=== PATIENT | female | born 1935 | race Caucasian/White ===

== ENCOUNTER 2022-06-29 20:41 | Emergency (ER) | payer MEDICARE, SELFPAY ==
[2022-06-29 20:45] VITALS: BP 131/66; PULSE 88; RESP 14; TEMP 36.5; O2SAT 98
--- NOTE | 2022-06-29 22:20 | ED_ITS ---
HPI - Extremity Injury (Lower) General Chief Complaint: Extremity Injury, Lower Stated Complaint: bleeding blister on toe. now controlled Time Seen by Provider: 06/29/22 21:43 History of Present Illness HPI Narrative: 86-year-old female history of diabetes presents to the emergency room via EMS for evaluation of a blood blister to her right fourth toe. Patient states that she noticed a blood blister several days ago and decided to open it up herself. halfway staff was concerned due to the bleeding and that she has diabetes. Patient has no complaints at this time. Related Data Allergies Allergy/AdvReac Type Severity Reaction Status Date / Time No Known Drug Allergies Allergy Unknown Other Verified 06/29/22 21:38 Review of Systems Review of Systems: CONSTITUTIONAL: Denies fever, chills, or sweats. EYES: Denies visual changes, redness, or discharge. ENT: Denies rhinorrhea, congestion, sore throat, or otalgia. CARDIOVASCULAR: Denies chest pain, palpitations, or edema. RESPIRATORY: Denies cough or dyspnea. GASTROINTESTINAL: Denies abdominal pain, nausea, vomiting, or diarrhea. GENITOURINARY: Denies dysuria or hematuria. SKIN: Denies rash or itching. MUSCULOSKELETAL: Denies back pain, joint pain, or myalgia. NEUROLOGIC: Denies headache, numbness, dizziness, or weakness. PSYCHIATRIC: Denies anxiety or depression. Exam Narrative: GENERAL: Well-appearing, well-nourished, no physical limitations, and in no acute distress. HEAD: Normocephalic, atraumatic. EYES: Conjunctivae normal, PERRLA and EOMI. CHEST: Clear to auscultation. No respiratory distress. No wheezes rales or rhonchi. HEART: Regular rate and rhythm. No murmur heard. Normal peripheral pulses. EXTREMITIES: Normal range of motion. No edema. No clubbing or cyanosis SKIN: Right fourth toe: Draining sanguinous nonthermal bulla medial surface NEURO: No focal deficits. Alert and oriented x3. MAEW. CN's II-XI intact bilaterally, normal gait PSYCH: Cooperative. Normal mood and affect. Course Vital Signs Vital signs: Vital Signs Temperature 36.5 C 06/29/22 20:45 Pulse Rate 88 06/29/22 20:45 Respiratory Rate 14 06/29/22 20:45 Blood Pressure 131/66 06/29/22 20:45 Pulse Oximetry 98 06/29/22 20:45 Oxygen Delivery Room Air 06/29/22 20:45 Temperature 36.5 C 06/29/22 20:45 Pulse Rate 88 06/29/22 20:45 Respiratory Rate 14 06/29/22 20:45 Blood Pressure 131/66 06/29/22 20:45 Pulse Oximetry 98 06/29/22 20:45 Oxygen Delivery Room Air 06/29/22 20:45 Discharge Plan Discharge Clinical Impression: Blister (nonthermal), right lesser toe(s), initial encounter Patient Disposition: Home, Self-Care Condition: Stable Instructions: Antibiotic Form Additional Instructions: Change dressing twice daily. May apply Neosporin to the wound. Take antibi otics as prescribed to prevent diabetic foot ulcer. Prescriptions: New cephalexin 500 mg capsule 500 mg PO Q8H 7 Days Qty: 21 0RF Follow-up/Referrals: Manas Dupree MD [Primary Care Provider] - Time of Disposition: 22:19
[2022-06-29 22:41] VITALS: PULSE 87; RESP 16; O2SAT 92
== END 2022-06-29 22:42 ==
PROVIDERS: Emergency Provider Nurse Practitioner Family; PCP Family Medicine Adolescent Medicine
DX: S90.424A Blister (nonthermal), right lesser toe(s), initial encounter (principal); E11.9 Type 2 diabetes mellitus without complications; X58.XXXA Exposure to other specified factors, initial encounter
CPT/HCPCS: 99283

== ENCOUNTER 2022-09-22 16:06 | Emergency (ER) | payer MEDICARE, SELFPAY ==
[2022-09-22 16:17] VITALS: BP 151/74; PULSE 110; RESP 16; TEMP 36; O2SAT 95
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
== END 2022-09-22 17:09 | disposition home or self-care (01) ==
PROVIDERS: Emergency Provider Registered Nurse; PCP Family Medicine Adolescent Medicine
DX: L25.9 Unspecified contact dermatitis, unspecified cause (principal); Z85.41 Personal history of malignant neoplasm of cervix uteri; Z85.05 Personal history of malignant neoplasm of liver; Z86.73 Personal history of transient ischemic attack (TIA), and cerebral infarction without residual deficits
CPT/HCPCS: 99213; G0463

== ENCOUNTER 2024-08-03 11:25 | Inpatient (IN) | payer MEDICARE, SELFPAY ==
[2024-08-03] VITALS (8 sets, daily range): BP systolic 120–151; BP diastolic 56–76; PULSE 74–86; RESP 17–20; TEMP 36.6–36.7; O2SAT 97–100
--- NOTE | ~2024-08-03 | MR_ITS ---
MRI of the brain Clinical History: Strokelike symptoms Technique: Axial and sagittal T1-weighted images were acquired. These were followed by axial T2-weigh mary, diffusion weighted, gradient, and FLAIR images. Findings: There is focal gyriform restricted diffusion at the left insular cortex, compatible with fo tamy acute infarct. There is moderate to advanced chronic microvascular ischemic change in the periven tricular white matter otherwise. Ventricles and subarachnoid spaces are mildly dilated. Orbits are unremarkable. There are bilateral m astoid effusions. There is left maxillary sinus disease. Major intracranial flow voids are grossly in tact. Sagittal midline structures are intact. IMPRESSION: Focal acute infarct at the left insular cortex. Moderate to advanced chronic microvascular ischemic change otherwise. Left maxillary sinus disease and bilateral mastoid effusions. Reviewed, dictated and finalized at location . RAL OFFICE EQUIPMENT ENGINEER
--- NOTE | ~2024-08-03 | XR_ITS ---
EXAMINATION: XR chest 1V portable DATE: 08/03/2024 11:49 INDICATION: Weakness TECHNIQUE: frontal view of the chest was obtained. COMPARISON: Chest radiograph dated 06/08/2014 FINDINGS: Mild elevation the left hemidiaphragm with streaky opacities at the left lung base on this could repr esent atelectasis or pneumonia. No other airspace opacities, pulmonary edema, pleural effusion or pne umothorax. Cardiomegaly. Mild lower thoracic dextrocurvature with moderate spondylosis. IMPRESSION: 1. Mild opacities at the left lung base along the mildly elevated left hemidiaphragm and favor atelec tasis over pneumonia. Reviewed, dictated and finalized at location A. TION JUDGE IMPRESSION: 1. Mild opacities at the left lung base along the mildly elevated left hemidiap hragm and favor atelectasis over pneumonia.
--- NOTE | ~2024-08-03 | CT_ITS ---
EXAMINATION: CT brain wo con DATE: 08/03/2024 11:35 INDICATION: Right-sided weakness and facial droop TECHNIQUE: Computed tomography (CT) of the head was performed without intravenous contrast. Sagittal and coronal reconstructions were performed. The mA was adjusted according to patient size. Iterative reconstruction technique was employed. The dose-length product was 605.33 mGy-cm. COMPARISON: head CT and brain MR dated 02/04/2016 FINDINGS: No acute intracranial hemorrhage, acute infarction or abnormal extra axial fluid collection. There ar e small old infarcts at the bilateral cerebellar hemispheres. There is moderate scattered white matte r hypoattenuation consistent with chronic small vessel ischemic disease. Symmetric prominence of the sulci consistent with mild to moderate age-appropriate diffuse cerebral volume loss. Ventricles are n ormal and symmetric. No mass/mass effect. Changes of bilateral intraocular lens replacement. The orbi ts and mastoid air cells are normal. Near complete opacification of the left maxillary sinus is and s ome of the posterior left ethmoid air cells with thickened sclerotic mejia suggestive of chronic sinu sitis. There is additional mucosal thickening in the right maxillary sinus. Bubbly mucus in the right sphenoid sinus. IMPRESSION: 1. Small old bilateral cerebellar infarcts. No acute intracranial process. 2. Age-related changes including mild to moderate diffuse volume loss and moderate scattered white ma tter hypoattenuation consistent with chronic small vessel ischemic. 3. Likely chronic sinus disease. Reviewed, dictated and finalized at location A. NG HANGER SUPERVISOR IMPRESSION: 1. Small old bilateral cerebellar infarcts. No acute intracranial process. 2. Age-related changes including mild to moderate diffuse volume loss and moder ate scattered white matter hypoattenuation consistent with chronic small vessel ischemic. 3. Likely chronic sinus disease.
--- NOTE | ~2024-08-03 | CT_ITS ---
EXAMINATION: CTA BRAIN/CAROTID DATE: 08/03/2024 13:36 INDICATION: Strokelike symptoms with right-sided weakness and facial droop TECHNIQUE: Computed tomographic angiography (CTA) of the head and neck was performed with 100 mL Omni paque-350 intravenous contrast. Multiplanar reconstructions and maximum intensity projection 3D-recon structions of the carotid arteries and of the intracranial arteries were created by the technologist on a separate workstation. Automated exposure control and iterative reconstruction technique were emp loyed.The dose-length product was 1013.16 mGy-cm. COMPARISON: None. FINDINGS: Carotid arteries: Visualized aortic arch and great vessels arising from the arch are normal in caliber with no or disse ction or hemodynamic significant atherosclerotic plaque. Normal variant separate origin of the left v ertebral artery from the aortic arch. There is a small amount of atherosclerotic plaque with 0% steno sis of the right and left carotid bulbs relative to normal distal artery lumen diameter (NASCET crite axel). The the right internal carotid artery is tortuous. There are couple subcentimeter likely benign nodules in the left thyroid lobe. Cervical soft tissues are otherwise unremarkable. Small region of tree-in-bud opacity in the left upper lobe consistent with endobronchial severe disease 18 first and age-indeterminate pneumonia. Severe cervical spondylosis. Intracranial arteries There is no hemodynamically significant stenosis in the vertebral, basilar and internal carotid arter ies. Vertebral arteries are codominant. There are no aneurysms identified. Both A1 and P1 segments a re patent. The left P1 segment is diminutive with majority of flow to the left posterior cerebral art jose supplied from the left internal carotid artery and a larger caliber patent left posterior communi cating artery. There are also additional patent anterior communicating and right posterior communicat ing arteries. Cerebral arterial arborization appears symmetric. No abnormally enhancing brain lesions identified. IMPRESSION: 1. Small amount of atherosclerotic plaque with 0% stenosis of the right and left carotid bulbs relati ve to normal distal artery lumen diameter (NASCET criteria). 2. Unremarkable cerebral CT angiogram with no aneurysm, thrombosis or hemodynamically significant jack nosis. Reviewed, dictated and finalized at location A. LE STIFFENER IMPRESSION: 1. Small amount of atherosclerotic plaque with 0% stenosis of the right and lef t carotid bulbs relative to normal distal artery lumen diameter (NASCET criteri a). 2. Unremarkable cerebral CT angiogram with no aneurysm, thrombosis or hemodynam ically significant stenosis.
--- NOTE | 2024-08-03 11:26 | ECG_ITS ---
Test Date: 2024-08-03 11:47:55 Measurements Intervals [place] Rate: 82 P: 33 OH: 171 QRS: -65 QRSD: 108 T: 31 QT: 371 QTc: 433 Interpretive Statements SINUS RHYTHM WITH FREQUENT VENTRICULAR PREMATURE COMPLEXES INCOMPLETE RIGHT BUNDLE BRANCH BLOCK [90+ ms QRS DURATION, TERMINAL R IN V1/V2, 40+ ms S IN I/aVL/V4/V5/V6] Poor R wave progression INFERIOR MYOCARDIAL INFARCTION , OF INDETERMINATE AGE [40+ ms Q WAVE AND/OR ST/T ABNORMALITY IN II/aVF] No previous ECG available for comparison Electronically Signed On 08-03-2024 12:55:16 [employer] SPECIALIST by Hannah Walsh M.D.
--- NOTE | 2024-08-03 11:47 | ED_ITS ---
HPI - Neuro Symptoms/Deficit General Chief Complaint: Neuro Symptoms/Deficit Stated Complaint: code stroke Time Seen by Provider: 08/03/24 11:46 Source: EMS Mode of arrival: EMS History of Present Illness HPI Narrative: 88 YEARS OLD WHITE FEMALE CAME FROM [facility] BY AMBULANCE WITH STROKE-LIKE SYMPTOMS. PATIENT LAST NORMAL WAS AT 10:30 A.M. THIS MORNING, PATIENT DID EAT BREAKFAST WENT BACK TO HER ROOM AND FELT WEIRD PATIENT CALLED STAFF WHO NOTICED RIGHT SIDE WEAKNESS AND EXPRESSIVE APHASIA HISTORY OF TIA. ON ARRIVAL TO THE ED PATIENT'S SON AT THE BEDSIDE WHO IS TELLING ME THAT PATIENT'S SPEECH RIGHT NOW EXACTLY THE SAME 2 WEEKS AGO AND DOES NOT LOOK ANY DIFFERENCE THAN 2 WEEKS AGO. CURRENTLY PATIENT IS AWAKE, ALERT ORIENTED X4 DENYING ANY SYMPTOMS. PATIENT CURRENTLY ON ASPIRIN Related Data Home Medications ?Medication ?Instructions ?Recorded ?Confirmed ?Last Taken ?Type aspirin 325 mg tablet 325 mg PO DAILY 11/23/23 11/23/23 Unknown History imatinib 400 mg tablet 400 mg PO DAILY 11/23/23 11/23/23 Unknown History calcium acetate 668 mg (169 mg 668 mg PO ONCE 04/26/24 Unknown History calcium) tablet cholecalciferol (vitamin D3) 10 10 mcg PO DAILY 04/26/24 Unknown History mcg (400 unit) capsule (Vitamin D3) vitamin B12 500 mcg-folic acid 400 1 tablet PO DAILY 04/26/24 Unknown History mcg tablet Allergies Allergy/AdvReac Type Severity Reaction Status Date / Time morphine AdvReac Nausea and Verified 04/26/24 08:59 Vomiting Review of Systems 2 Review of Systems: All systems reviewed & are unremarkable except as noted in HPI and below PMFSH Past Medical History Medical History Cancer, metastatic to liver History of cervical cancer History of CVA (cerebrovascular accident) (2015) left hemiparesis Surgical History Surgical History History of hysterectomy with bilateral oophorectomy (1995) History of Whipple procedure (11/2014) Hx of hernia repair (2017) Family History Family History Father Acute myocardial infarction Mother Rheumatic fever Social History Social History (Reviewed 10/18/24 @ 12:02 by KORI Sparks Smoking status: Never smoker Alcohol intake: never Substance use: never Exam 2 Narrative: General appearance: Well-developed, well-nourished Skin: Normal color Head: Normocephalic, nontraumatic Eyes: Clear conjunctiva ENT: Oropharynx normal, ears normal, nose normal Neck: Supple, nontender Chest and respiratory: Airway patent, no respiratory distress, no accessory muscle use Heart: Regular rate/rhythm Abdomen: Soft, nontender, no organomegaly, quiet bowel sounds Vascular: Normal peripheral pulses, normal capillary refill. Musculoskeletal: Right shoulder deformity and limited range of motion no tenderness, chronic Difficult left Ng left lower extremity because of chronic pain. Neurologic: Alert and oriented ?3, [employer] is normal as tested, no gross motor deficit Course Consultations Consultation #1: DR SUTHERLAND Date: 08/03/24 Vital Signs Vital signs: Vital Signs Temperature 36.7 C 08/03/24 11:45 Pulse Rate 82 08/03/24 11:45 Respiratory Rate 20 08/03/24 11:45 Blood Pressure 139/56 L 08/03/24 11:45 Pulse Oximetry 97 08/03/24 11:45 Oxygen Delivery Room Air 08/03/24 11:45 Temperature 36.7 C 08/03/24 11:45 Pulse Rate 82 08/03/24 12:20 Respiratory Rate 17 08/03/24 12:13 Blood Pressure 120/65 08/03/24 12:13 Pulse Oximetry 97 08/03/24 12:13 Oxygen Delivery Room Air 08/03/24 11:45 MDM - Neuro Symptoms/Deficit MDM Narrative Medical decision making narrative: PATIENT PRESENTS WITH STROKE-LIKE SYMPTOMS VITAL SIGNS SHOWING BLOOD PRESSURE 139/56 OTHERWISE WITHIN NORMAL LIMIT PHYSICAL EXAMINATION SHOWING PATIENT IS AWAKE, ALERT ORIENTED X4, STROKE SCALE IS 3 DIFFERENTIAL DIAGNOSIS CVA, TIA, ELECTROLYTE IMBALANCE, URINARY TRACT INFECTION, HYPOGLYCEMIA. BLOOD WORKUP TODAY INCLUDES CBC, CMP, TROPONIN SHOWED HEMOGLOBIN OF 9.0, PLATELET 398, COAGS WITHIN NORMAL LIMIT, CREATININE 1.5 OTHERWISE WITHIN NORMAL LIMIT URINALYSIS SHOWED EVIDENCE OF INFECTION CHEST X-RAY SHOWED NO ACUTE ABNORMALITY CT HEAD WITHOUT CONTRAST SHOWED NO ACUTE CVA CTA HEAD AND NECK SHOWED NO ACUTE ABNORMALITIES ACCORDING TO PATIENT'S FAMILY WHO HAVE SEEN THE PATIENT YESTERDAY. PATIENT LOOKS EXACTLY THE SAME, IMPROVING, NORMAL SPEECH, NORMAL RESPONSE, CURRENTLY PATIENT IS ASYMPTOMATIC. TIA IS MY CONCERN. CONSULT NEUROLOGIST, ADMIT TO HOSPITALIST WITH TIA, URINARY TRACT INFECTION Differential Diagnosis Differential diagnosis: Likely other ( ABOVE) Medical Records Attestation: I reviewed the patient's medical records. Lab Data Attestation: I reviewed the patient's lab results. 08/03/24 12:12 08/03/24 12:12 Labs: Lab Results 08/03/24 08/03/24 08/03/24 Range/Units 12:12 12:20 13:13 WBC 8.5 (4.5-10.0) K/mm3 RBC 2.74 L (4.2-5.4) M/mm3 Hgb 9.0 L (12.0-15.0) g/dL Hct 28.2 L (37.0-47.0) % MCV 102.9 H (80-100) fl MCH 32.8 (26-34) pg MCHC 31.9 L (32-36) g/dl RDW 16.6 H (11.5-14.5) % Plt Count 398 H (150-375) k/mm3 MPV 9.1 (7.4-10.4) fl Immature Gran % (Auto) 0.1 (0-0.5) % Neut % (Auto) 74.9 H (45.5-73.1) % Lymph % (Auto) 15.9 L (18.3-44.2) % [place] % (Auto) 7.1 (2.6-8.5) % Eos % (Auto) 1.4 (0-4.4) % Baso % (Auto) 0.6 (0.2-1.2) % Lymph # (Auto) 1.35 (0.9-3.2) K/mm3 [place] # (Auto) 0.6 (0.1-0.6) K/mm3 Eos # (Auto) 0.1 (0-0.3) K/mm3 Baso # (Auto) 0.1 (0.0-0.1) K/mm3 Abs Immat Gran (auto) 0.01 (0.00-0.031) K/mm3 Absolute Neuts (auto) 6.4 (1.3-6.7) K/mm3 Absolute Nucleated RBC 0.000 (0.0-0.012) K/mm3 Nucleated RBC % 0.0 (0.0-0.2) % PT 13.7 (11.1-14.7) Seconds INR 1.0 APTT 24.3 (22.3-36.8) Seconds Sodium 136 L (137-145) mmol/L Potassium 4.8 (3.4-5.0) mmol/L Chloride 105 (98-107) mmol/L Carbon Dioxide 22 (22-30) mmol/L Anion Gap 9 (4-12) mmol/L BUN 29 H (7-17) mg/dL Creatinine 1.58 H (0.7-1.0) mg/dL Estim Creat Clear Calc 24 ml/min Estimated GFR 31 L (59 - ) Glucose 136 H (65-110) mg/dL POC Capillary Glucose 135 H (65-105) mg/dl Calcium 8.1 L (8.4-10.2) mg/dL Total Bilirubin 0.3 (0.2-1.3) mg/dL AST 22 (14-36) U/L ALT 11 (6-35) U/L Alkaline Phosphatase 79 (38-126) U/L Troponin I < 0.012 (0.000-0.034) ng/mL Total Protein 6.0 L (6.3-8.2) g/dL Albumin 3.2 L (3.5-5.1) g/dL Urine Color Yellow (Yellow) Urine Appearance Clear (Clear) Urine pH 5.0 (5.0-9.0) Ur Specific [place] 1.019 (1.001-1.035) Urine Protein Trace (Negative) mg/dL Urine Glucose (UA) Negative (Negative) mg/dL Urine Ketones Negative (Negative) mg/dL Ur Blood (Man) Negative (Negative) Urine Nitrate Negative (Negative) Urine Bilirubin Negative (Negative) Urine Urobilinogen 0.2 (<2.0) mg/dL Add Ur Microanalysis Reviewed Leukocyte Esterase Rfl 1+ H (Negative) FANNY/UL Urine RBC 0-2 (0-2) /hpf Urine WBC 11-20 H (0-3) /hpf Ur Squamous Epith Cells Few (Few) /hpf Urine Bacteria 1+ H /hpf Urine Casts >20 Imaging Data Radiologist's impression: Impressions Head CT 08/03/24 11:36 IMPRESSION: 1. Small old bilateral cerebellar infarcts. No acute intracranial process. 2. Age-related changes including mild to moderate diffuse volume loss and moderate scattered white matter hypoattenuation consistent with chronic small vessel ischemic. 3. Likely chronic sinus disease. Chest X-Ray 08/03/24 11:50 IMPRESSION: 1. Mild opacities at the left lung base along the mildly elevated left hemidiaphragm and favor atelectasis over pneumonia. Head/Neck CTA 08/03/24 13:38 IMPRESSION: 1. Small amount of atherosclerotic plaque with 0% stenosis of the right and left carotid bulbs relative to normal distal artery lumen diameter (NASCET criteria). 2. Unremarkable cerebral CT angiogram with no aneurysm, thrombosis or hemodynamically significant stenosis. ECG Data EKG #1: Attestation: I personally reviewed and interpreted this ECG as follows: ECG completion date: 08/03/24 Interpretation: NORMAL SINUS RHYTHM Critical Care Time Critical Care Time Critical Care Time: Yes Total Critical Care Time: 30 Discharge Plan Discharge Patient Disposition: Still a Patient Patient Language: Armenian Prescriptions: No Action imatinib 400 mg tablet 400 mg PO DAILY lisinopril 10 mg tablet 10 mg PO DAILY Qty: 90 3RF aspirin 325 mg tablet 325 mg PO DAILY vitamin [id number] acid 500-400 mcg tablet 1 tablet PO DAILY Rx Instructions: administer with a meal calcium acetate 668 mg (169 mg calcium) tablet 668 mg PO ONCE cholecalciferol (vitamin D3) [Vitamin D3] 10 mcg (400 unit) capsule 10 mcg PO DAILY metformin 500 mg tablet extended release 24 hr 2,000 mg PO DAILY Qty: 360 3RF simvastatin 40 mg tablet 40 mg PO DAILY Qty: 90 3RF Follow-up/Referrals: Manas Dupree MD [Primary Care Provider] - Quality Stroke Scale Stroke Scale 1: Stroke scale date:: 08/03/24 1a Level of consciousness: alert-0 1b Level of consciousness questions: answers both correctly-0 1c Level of consciousness commands: obeys both correctly-0 2 Best gaze: normal-0 3 Visual: no visual loss-0 4 Facial palsy: normal-0 5a Motor: left arm: no drift-0 5b Motor: right arm: no drift-0 6a Motor: left leg: some effort/gravity-2 6b Motor: right leg: no drift-0 7 Limb ataxia: present in one limb-1 8 Sensory: normal-0 9 Best language: no aphasia-0 10 Dysarthria: normal-0 11 Extinction and inattention: no abnormality-0 Level:: 3
--- OUTSIDE RECORDS SUMMARY | 2024-08-03 11:49 | XMS_ITS | Referral Summary ---
Author Organization [facility] Address [address] [place] [address] Care Team Providers Care Director Of Sales Name Role Phone Unavailable Primary Care Provider Unavailabl e Source Comments [facility],non-owned Affiliates and Associated Physician Practices is amultiple site organization consisting of ambulatory clinics and hospital sitesin [place], [place], [place] and [place]. This disclosure is being madepursuant to the Care Everywhere program and may not contain all information available regarding this patient. Last updated 18.[facility] Social History Tobacco Use Types Packs/Day Years Used Date Smoking Tobacco: Never Assessed Sex and Gender Information Value Date Recorded Sex Assigned at Not on file Gender Identity Not on file Sexual Orientation Not on file Plan of Treatment Not on file
--- OUTSIDE RECORDS SUMMARY | 2024-08-03 11:49 | XMS_ITS | Continuity of Care Document ---
Author Organization Formerly [facility] Address [address] [place] [address] [place] [address] Phone Care Team Providers Care Mushroom Grower Name Role Phone Blade Alford Unavailable Unavailable Procedures Procedure Date Office/outpatient Visit, Est Office/outpatient Visit, Est Office/outpatient Visit, Est Eye Exam & Treatment Refraction Eye Exam & Treatment Refraction Progressive Lens, Plastic Frames Deluxe Tax - Medical Eye Exam & Treatment Advance Directives Directive Yes / No Effective Date File Name No Information Encounters Encounter Description Practice Location Reason(s) For Visit Diagnoses Date Provider Providers Copied on Encounter [place] [facility] [place] [address] [place] [address] [address], [place], [place], [id number], tel:[phone] [facility] No Information 0-201 0 Rocío Murguia. [address] , [address], [place], [address], [place]. tel:[phone] Office/[place]pat [place], [facility] [place] [address] [place] [address] [address], [place], [place], [id number], tel:[phone] [facility] No Information 4-200 9 Rocío Murguia. [address] , [address], [place], [address], [place]. tel:[phone] Office/outpat ient Visit, [facility], [address], [place], [place], [id number], [place] tel:[phone] [facility] No Information Oct-1 4-200 9 Rocío Murguia. [address] , [address], [place], [address], [place]. tel:[phone] [facility], [address], [place], [place], [id number], [place] tel:[phone] [facility] No Information Oct-0 5-200 9 Rocío Murguia. [address] , [address], [place], [address], [place]. tel:[phone] [facility], [address], [place], [place], [address], [place] tel:[phone] [facility] No Information Oct-2 0-200 8 Doiedwar Murguia. [address] , [address], [place], [address], [place]. tel:[phone] [facility], [address], [place], [place], [id number], [place] tel:[phone] [facility] No Information Nov-0 1-200 7 [facility] . [address], [address], [place], [place], [id number], [place]. tel:[phone] Referring Provider: Blade Wilkinson, [address], [place], [address]. tel:[phone] sulting Provider: Bety Eric, [address], [place], [facility]. tel:[phone] [facility], [address], [place], [place], [id number], [place] tel:[phone] [facility] No Information Oct-1 2-200 7 Doisy Edward. [address] , [address], [place], [address], [place]. tel:[phone] Family History Family Member Type Diagnosis Age At Onset No Information Payers Payer name Insurance type Covered alliance party ID Authoriza tion(s) No Information Social History Type Description Quantity Date Captured Comments Sex Female Smoking Status No Information Chief Complaint And Reason For Visit No Information Reason For Referral Reason For Referral No Information History Of Present Illness Encounter Date Complaint History Of Prese nt Illness No Information Functional Status Date Functional Assessmen t No Information Instructions Date Instruction Additional Infor mation No Information Assessments Type Assessment Date No Information Patient Care Teams Name Effective Dates (start - stop) Status Members No Information
--- OUTSIDE RECORDS SUMMARY | 2024-08-03 11:49 | XMS_ITS | Referral Summary ---
Author Organization [facility] al Address [address] [place] [address] Care Team Providers Care Distillation Operator Helper Name Role Phone Manas Dupree MD Primary Care Prov ider Tahir Hartman DO Unavailable [phone] Encounters Date Type Department Care Team Description 06/21/2024 Telephone [facility] [address] [place] [address] Anne-Marie Ramirez, Peg 06/20/2024 Telephone [facility] [address] [place] [address] Anne-Marie Ramirez, Peg 06/19/2024 Orders Only [facility] [address] [place] [address] Tahir Hartman DO 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) 06/19/2024 Documentation [facility] [address] [place] [address] Anne-Marie Ramirez, Peg Prior Auth (IMATINIB 400MG) 05/15/2024 Telephone [facility] [address] 6 [place] [address] Anne-Marie Ramirez, Peg 05/08/2024 Documentation [facility] [address] [place] [address] Raissa Allen, RN 05/08/2024 Orders Only [facility] [address] [place] [address] Provider, MD Suresh from Last 3 Months Allergies Active Allergy Reactions Criticality Noted Date Comments Morphine Hcl Nausea only Low 10/02/2012 Medications ACCU-CHEK COMPACT PLUS TEST strip TEST DAILY DIRECTED 01/04/20 18 Active ACCU-CHEK SOFTCLIX LANCETS lancets TEST DAILY DIRECTED 01/03/20 18 Active calcium carbonate/vitamin D3 (CALCIUM 500 + D ORAL)Indications:sup plement Take 1 tablet by mouth every morning Active aspirin 325 mg tablet Take 1 tablet (325 mg total) by mouth every morning Active ferrous gluconate 324 mg (37.5 mg of elemental iron) tablet Take 8.64 tablets (2,799.36 mg total) by mouth nightly Active bismuth subsalicylate (PEPTO-BISMOL) suspension Take 15 mL by mouth every 6 (six) hours as needed for indigestion Active simethicone (GAS-X ORAL) Take 1 tablet by mouth daily as needed Active acetaminophen 500 mg capsule Take 2 capsules (1,000 mg total) by mouth every 6 (six) hours 30 tablet 10/25/19 19 Active docusate sodium (COLACE) 100 mg capsuleIndications:c onstipation Take 1 capsule (100 mg total) by mouth 2 (two) times a day 30 capsule 10/25/19 19 Active Additional Information Patient not taking.Reported on 10/07/2022 metFORMIN XR (GLUCOPHAGE XR) 500 mg 24 hr tablet TK 4 TS PO D 1 12/22/19 19 Active simvastatin (ZOCOR) 40 mg tablet Take by mouth Act anne cyanocobalamin (Vitamin B-12) 1,000 mcg tabletIndications:Pr evention of Vitamin B12 Deficiency Take 1 tablet (1,000 mcg total) by mouth daily 30 tablet 11 07/20/19 21 Active Additional Information Patient taking differently: 500 mcgoral Daily, Indications: Prevention of Vitamin B12 Deficiency, Reported on 04/05/2024 Lactobac no.41/Bifidobact no.7 (PROBIOTIC-10 ORAL) Take by mouth Active nitrofurantoin monohydrate (MACROBID) 100 mg capsule TAKE 1 CAPSULE BY MOUTH EVERY 12 HOURS FOR 5 DAYS 01/06/20 22 Active mupirocin (BACTROBAN) 2 % ointment APPLY TOPICALLY TO RASH TWICE DAILY 10/06/19 23 Active predniSONE (DELTASONE) 10 mg tablet 10/05/19 23 Active lisinopriL (PRINIVIL,ZESTRIL) 10 mg tablet Take 1 tablet (10 mg total) by mouth daily 08/29/19 23 Active cetirizine (ZyrTEC) 10 mg tablet Take 1 tablet (10 mg total) by mouth daily 02/18/20 23 Active clobetasoL (TEMOVATE) 0.05 % cream 04/05/20 23 Active hydrOXYzine (ATARAX) 25 mg tablet Take 1 tablet (25 mg total) by mouth nightly 03/16/20 23 Active imatinib (GLEEVEC) 400 mg tabletIndications:Ma lignant gastrointestinal stromal tumor (GIST) of other site (HCC) Take 1 tablet (400 mg total) by mouth daily Take with a large glass of water. You may dissolve in water or apple juice to make swallowing easier. Should be taken with a meal. Do not take on an empty stomach. 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 Resolved Problems Problem Noted Date Diagnosed Date Resolved Date Recurrent incisional hernia with incarceration 06/22/2018 10/08/2020 Ventral hernia 01/17/2018 03/05/2018 Incisional hernia 11/22/2017 06/22/2018 History of intestinal obstruction 01/06/2016 03/05/2018 Immunizations Name Administration Dates Next Due Influenza, Unspecified 05/09/2022,05/07/2020 Pfizer SARS-CoV-2 Monovalent Vaccination (12+ Yrs) PURPLE 09/21/2020,08/30/2020 Social History Tobacco Use Types Packs/Day Years Used Date Smoking Tobacco: Never Smokeless Tobacco: Never Tobacco Cessation:Counseling Given: No Alcohol Use Standard Drinks/Week Comments No 0 (1 standard drink = 0.6 oz pur e alcohol) rare AUDIT-C Answer Date Recorded Q1: How often do you have a drink containing alc ohol? Never 02/06/2021 Average Number of Drinks Not on file 021 Q3: How often do you have si x or more drinks on one occasion? Never 02/06/2021 Comments No Sex and Gender Information Value Date Recorded Sex Assigned at Not on file Legal Sex Female 3:10 AM SHANK STAPLER Gender Identity Not on file Sexual Orientation Not on file Occupation Industry Job Start Date Job End Date Retired Not on file Not on file Not on file Last Filed Vital Signs Vital Sign Reading Time Taken Comments Blood Pressure 142/83 04/05/2024 11:26 AM CDT Pulse 86 04/05/2024 11:26 AM CDT Temperature 36.7 ??C (98 ??F) 04/05/2024 11:26 AM CDT Respiratory Rate 16 04/05/2024 11:26 AM CDT Oxygen Saturation 96% 04/05/2024 11:26 AM CDT Inhaled Oxygen Concentration - - Weight 86.7 kg (191 lb 3.2 oz) 04/05/2024 11:26 AM CDT Height 175.3 cm (5' 9 ) 04/07/2023 10:20 AM CDT Body Mass Index 28.24 04/07/2023 10:20 AM CDT Plan of Treatment Not on file Medical Devices Implanted Type Area Cell Coverer Device Identifier Shelf Expiration Date Model / Serial / Lot Davol Inc/C R Bard [id number] Ventralight St Sepra Echo Ps 8x6in Monofilament Absorbable Low Latex Free - [id number] Implanted:Qty: 1 on 10/22/2018 by Sage Julien MD at [facility] N/A: Abdomen [employer]/C R Bard 05/06/2020 [id number] / / [id number] Insurance MEDICARE SOLUTIONS [place] [id number] MEDICARE SOL[place] [address] MEDICARE SOLUTIONS MEDICARE SOLUTIONS Advance Directives For more information, please contact: [phone] * Full Code (Latest Code Status on File) Date Activated Date Inactivated Comments 10/22/2018 1:40 PM 10/24/2018 7:57 PM Care Teams Distillation Operator Helper Relationship Specialty Start Date End Date Manas Dupree MD [address] [place] [address] PCP - General 10/12/16 Tahir Hartman DO [address] [place] [address] MEDICAL ONCOLOGY, [facility] [address] [place] [address] Medical Oncologist/Dietary Aide [facility] Hematology and Oncology 09/24/21
--- OUTSIDE RECORDS SUMMARY | 2024-08-03 11:49 | XMS_ITS ---
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 Radiation Treatments * No radiation treatments are documented for this patient in [facility]. Treatments may have been administered in another system. Lifetime Dose Tracking * Chemical Lifetime Dose Automatic Entry Manual Entr y DLP 8,254 mGycm 8,254 mGycm 0 mGycm Resolved Problems Problem Noted Date Diagnosed Date Resolved Date Recurrent incisional hernia with incarceration 06/22/2018 10/08/2020 Ventral hernia 01/17/2018 03/05/2018 Incisional hernia 11/22/2017 06/22/2018 History of intestinal obstruction 01/06/2016 03/05/2018
--- OUTSIDE RECORDS SUMMARY | 2024-08-03 11:49 | XMS_ITS | Clinical Summary ---
Author Organization [facility] al Address [address] [place] [address] Care Team Providers Care Monument Carver Name Role Phone Manas Dupree MD Primary Care Prov ider Tahir Hartman. DO Unavailable [phone] Allergies Active Allergy Reactions Criticality Noted Date Comments Morphine Hcl Nausea only Low 10/02/2012 Medications ACCU-CHEK COMPACT PLUS TEST strip TEST DAILY DIRECTED 3 01/04/20 18 Active ACCU-CHEK SOFTCLIX LANCETS lancets TEST DAILY DIRECTED 3 01/03/20 18 Active calcium carbonate/vitamin D3 (CALCIUM [...] 06/22/2018 History of intestinal obstruction 01/06/2016 03/05/2018 Encounters Date Type Department Care Team Description 06/21/2024 Telephone [facility] [address] [place] [address] Anne-Marie Ramirez, synthetic resin operator 06/20/2024 Telephone [facility] [address] [place] [address] Anne-Marie Ramirez, synthetic resin operator 06/19/2024 Orders Only [facility] [address] [place] [address] Tahir Hartman, 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) 06/19/2024 Documentation [facility] [address] [facility] [address] [facility] [address] [place] [address] Anne-Marie Ramirez, synthetic resin operator Prior Auth (IMATINIB 400MG) 05/15/2024 Telephone [facility] [address] [facility] [address] [place] [address] Anne-Marie Ramirez, synthetic resin operator 05/08/2024 Documentation [facility] [address] [place] [address] Raissa Allen, LINDA 05/08/2024 Orders Only [facility] [address] [place] [address] [address] [place] [address] Provider, MD Suresh from Last 3 Months Immunizations Name Administration Dates Next Due Influenza, Unspecified 05/09/2022,05/07/2020 Pfizer SARS-CoV-2 Monovalent Vaccination (12+ Yrs) PURPLE 09/21/2020,08/30/2020 Surgical History Surgery Date Site/Laterality Comments BIOPSY LIVER 12/11/2015 N/A TOTAL ABDOMINAL HYSTERECTOMY 07/10/1995 - 07/09/1996 PANCREATICODUODENECTOMY 07/10/2014 - 07/09/2015 HERNIA REPAIR 07/10/1997 - 07/09/1998 open COLONOSCOPY CHOLECYSTECTOMY Medical History Medical History Date Comments GIST, malignant (HCC) 12/18/2015 Small bowel obstruction (CMS/HCC) (HCC) 8 Incisional hernia 11/22/2017 Liver disease stage 4 liver ca ncer Liver metastases DM (diabetes mellitus) (HCC) HTN (hypertension) History of chemotherapy remains on oral agents for liver cancer Stroke (cerebrum) (HCC) Family History Medical History Relation Name Comments No Known Problems Father Heart disease Mother from hear t problems at 38 y.o Breast cancer Sister Anesthesia problems Neg Hx Relation Name Status Comments Father Mother Sister Social History Tobacco Use Types Packs/Day Years [...] on file Legal Sex Female 3:10 AM LEAD C DEVELOPER Gender Identity Not on file Sexual Orientation Not on file Occupation Industry Job Start Date Job End Date Retired Not on file Not on file Not on file Obstetrics History Last Filed Vital Signs Vital Sign Reading [...] 04/07/2023 10:20 AM CDT Plan of Treatment Health Maintenance Due Date Last Done Comments Depression Screening 1937 Fall Risk Assessment 1935 DTaP/Tdap/Td Vaccine (1 - Tdap) 1948 Hepatitis B Screening 12/25/1955 Zoster Vaccine (1 of 2) 12/25/1987 Pneumococcal vaccine 65+ (1 of 1 - PCV) 2002 Well Visit 65+ 2002 Covid-19 Vaccine ( - season) 2024 06/20/2021, 09/21/2020, 08/30/2020 Influenza Vaccine (#1) 2024 05/09/2022, 2019 Medical Devices Implanted Type Area [facility] Television Rental Clerk Device Identifier Shelf Expiration Date Model / Serial / Lot [employer]ol Inc/C R Bard [id number] Ventralight St Sepra Echo Ps 8x6in Monofilament Absorbable Low Latex Free - [id number] Implanted:Qty: 1 on 10/22/2018 by Sage Julien MD at [facility] N/A: Abdomen [employer]/C R Bard 05/06/2020 [id number] / / [id number] Insurance MEDICARE SOLUTIONS [facility] MEDICARE Address: [facility] [address] [place] [address] MEDICARE SOLUTIONS [facility] MEDICARE Address: [address] [address] [place] [address] MEDICARE SOLUTIONS [facility] MEDICARE Address: [facility] [address] [place] [address] MEDICARE SOLUTIONS [facility] MEDICARE Address: [address] [address] [place] [address] Advance Directives For more information, please contact: [phone] * Full Code (Latest Code Status on File) Date Activated Date Inactivated Comments 10/22/2018 1:40 PM 10/24/2018 7:57 PM Care Teams Monument Carver Relationship Specialty Start Date End Date Manas Dupree MD [address] [place] [address] PCP - General 10/12/16 [place] [address] [place] [address] MEDICAL ONCOLOGY, [address] [address] Medical Oncologist/Lockstitch Front Edge Tape Sewer Hematology and Oncology 09/24/21
--- OUTSIDE RECORDS SUMMARY | 2024-08-03 11:49 | XMS_ITS | Encounter Summary ---
Author Organization [facility] Address [address] [place] [address] Phone Care Team Providers Care Orchestra Musician Name Role Phone Manas Dupree MD Primary Care Prov ider Claudette Mccoy MD Unavailable Tahir Hartman DO Unavailable [phone] Encounter Details Date Type Department Care Team (Late st Contact Info) Description 05/28/2019 Social Work [facility] Oncology [address] [place] [address] [place] [address] Amy Portillo LCSW Social History Tobacco Use Types Packs/Day Years Used Date Smoking Tobacco: Never Smokeless Tobacco: Never Alcohol Use Standard Drinks/Week Comments No 0 (1 standard drink = 0.6 oz pur e alcohol) rare Comments No Sex and Gender Information Value Date Recorded Sex Assigned at Not on file Legal Sex Female 3:10 AM SCOW DERRICK OPERATOR Gender Identity Not on file Sexual Orientation Not on file documented as of this encounter Progress Notes * Amy Portillo LCSW - 05/28/2019 9:47 AM CST Placed call to pt to discuss re-enrollment for rx Gleevec. Will meet with pt tomorrow at MD Eladia villaseñor appl. DERRICK OPERATOR documented in this encounter Plan of Treatment Not on file documented as of this encounter Visit Diagnoses Not on filedocumented in this encounter Care Teams Orchestra Musician Relationship Specialty Start Date End Date Manas Dupree MD [address] [place] [address] PCP - General 10/12/16 Claudette Mccoy MD [address] [place] [address] Medical Oncologist/Straight Slicing Machine Operator Medical Oncology 03/05/18 05/26/21 Tahir Hartman DO [address] [place] [address] MEDICAL ONCOLOGY, [address] [address] Medical Oncologist/Straight Slicing Machine Operator Hematology and Oncology 09/24/21 documented as of this encounter
--- OUTSIDE RECORDS SUMMARY | 2024-08-03 11:49 | XMS_ITS | Clinical Summary ---
Author Organization [facility] Address [address] [place] [address] Care Team Providers Care Paint Tinter Name Role Phone Unavailable Primary Care Provider Unavailabl e Source Comments [facility],non-owned Affiliates and Associated Physician Practices is amultiple site organization consisting of ambulatory clinics and hospital sitesin [place], [place], [place] and [place]. This disclosure is being madepursuant to the Care Everywhere program and may not contain all information available regarding this patient. Last updated 18.[facility] [place] Social History Tobacco Use Types Packs/Day Years Used Date Smoking Tobacco: Never Assessed Sex and Gender Information Value Date Recorded Sex Assigned at Not on file Gender Identity Not on file Sexual Orientation Not on file Plan of Treatment Health Maintenance Due Date Last Done Comments BONE DENSITY TESTING 1937 DTAP/TDAP/TD VACCINES (1 - Tdap) 1956 PNEUMOCOCCAL VACCINE 50+ (1 of 1 - PCV) 12/25/1987 ZOSTER VACCINE (1 of 2) 12/25/1987 Respiratory Syncytial Virus (RSV) Vaccine Pt: or over 60 yrs (1 - 1-dose 75+ series) 2012 COVID-19 VACCINE (2023-2 5 season) 2024 INFLUENZA VACCINE (#1) 2024 DEPRESSION SCREENING 07/10/2024 MEDICARE AWV ? CALENDAR YEAR 2024 HEPATITIS B VACCINE Aged Out No longe r eligible based on patient's age to complete this topic HIB VACCINE Aged Out No longer eligi ble based on patient's age to complete this topic HPV VACCINE Aged Out No longer eligi ble based on patient's age to complete this topic MENINGOCOCCAL (Group B) VACCINE Aged Out No longer eligible based on patient's age to complete this topic MENINGOCOCCAL VACCINE Aged Out No sami tai eligible based on patient's age to complete this topic
--- OUTSIDE RECORDS SUMMARY | 2024-08-03 11:49 | XMS_ITS | Patient Health Summary ---
Author Organization [facility] Address [address] [place] [address] Care Team Providers Care Nurse Behavioral Health Care Name Role Phone Unavailable Primary Care Provider Unavailabl e Note from [facility],non-owned Affiliates and Associated Physician Practices is amultiple site organization consisting of ambulatory clinics and hospital sitesin [place], [place]. This disclosure is being madepursuant to the Care Everywhere program and may not contain all information available regarding this patient. Last updated 18.[facility] Social History Tobacco Use Types Packs/Day Years Used Date Smoking Tobacco: Never Assessed Sex and Gender Information Value Date Recorded Sex Assigned at Not on file Gender Identity Not on file Sexual Orientation Not on file Procedures * DERMATOPATHOLOGY(Performed 04/12/2023) Performed for Squamous cell carcinoma of skin of left upper limb, including shoulder Results * DERMATOPATHOLOGY (04/12/2023 12:00 AM CDT) Case Report Dermatopathology Report ? Case: [id number] ? Authorizing Provider: ??Eliceo Moctezuma MD ? Collected: ? 04/12/2023 12:00 AM ? Ordering Location: ? [facility] ? Received: ?04/13/2023 01:42 PM ? Pathologist: ? Chanell Ovalle, ? MD ? Specimen: ?Skin, left distal radial dorsal forearm ? 3 5:31 PM [facility] Final Diagnosis Specimen A. SKIN, left distal radial dorsal forearm: DERMAL SCAR RESIDUAL SQUAMOUS CELL CARCINOMA NOT IDENTIFIED (L90.5) 3 5:31 PM [facility]ER[facility] Clinical History Squamous Cell Carcinoma. Check Margins 3 5:31 PM [facility] Gross Description Specimen A: Received is one formalin filled container labeled with the patient's name and designated left distal radial dorsal forearm. The specimen consists of a non-oriented ellipse of skin measuring [id number] mm. The 12 o'clock and 6 o'clock tips are submitted in cassette 1. The remainder of the ellipse is serially sectioned and submitted in cassette 2 . Jar 0. 3 5:31 PM [facility]ERMATOPATH[facility]Y [facility] Microscopic Description Specimen A. SKIN, left distal radial dorsal forearm: There are fibroblasts and collagen bundles oriented parallel to the skin surface. There are elongated blood vessels, some of which are oriented perpendicular to the skin surface. No residual squamous cell carcinoma is identified. 3 5:31 PM [facility]ERMAT[facility]ATH[facility]Y [facility]AT[facility] Disclaimer An external and internal positive and negative controls are appropriate for the histochemical, immunohistochemical and immunofluorescence stain(s) in this case (if any), except where stated explicitly. The performance characteristics of the stain(s) cited in this report were developed and its performance characteristic determined by the Dermatopathology Laboratory at [facility], directed by Dr. Gabi Miguel. These tests need not be, and therefore are not, approved by the [place] Food and Drug Administration. The tests are used for clinical purposes. Billing Codes Specimen Charges Stain Charges 46174 1 3 5:31 PM CDT DERMATOPATHOLOGY LABORATORY Embedded Images 3 5:31 PM CDT DERMATOPATHOLOGY LABORATORY Pathology/Cytolog y TISSUE SPECIMEN FROM SKIN / Unknown 04/12/2023 04/13/2023 1:42 PM CDT Eliceo Moctezuma MD LAB - PATHOLOGY/CYTO LOGY ORDERABLES DERMATOPATHOLOGY LABORATORY [facility] - Department of Dermatology [facility] Medicine [address] [place] [address], [address] [phone]
--- OUTSIDE RECORDS SUMMARY | 2024-08-03 11:49 | XMS_ITS | Encounter Summary ---
Author Organization [facility] Address [address] [place] [address] Care Team Providers Care Rag Cutting Machine Feeder Name Role Phone Unavailable Primary Care Provider Unavailabl e Encounter Details Date Type Department Care Team (Late st Contact Info) Description 04/12/2023 Lab Requisition [facility] - DermPath Lab [address], [place], [place] [address] Eliceo Moctezuma MD [facility] [address] [place] [phone] Squamous cell carcinoma of skin of left upper limb, including shoulder Social History Tobacco Use Types Packs/Day Years Used Date Smoking Tobacco: Never Assessed Sex and Gender Information Value Date Recorded Sex Assigned at Not on file Gender Identity Not on file Sexual Orientation Not on file documented as of this encounter Plan of Treatment Not on file documented as of this encounter Procedures Procedure Name Priority Date/Time Associated Diagnosis Comments DERMATOPATHOLOGY Routine 04/12/2023 12:0 0 AM CDT Squamous cell carcinoma of skin of left upper limb, including shoulder documented in this encounter Results * DERMATOPATHOLOGY (04/12/2023 12:00 AM CDT) Case Report Dermatopathology Report ? Case: [id number] ? Authorizing Provider: ??Eliceo Moctezuma MD ? Collected: ? 04/12/2023 12:00 AM ? Ordering Location: ? [facility] ? Received: ?04/13/2023 01:42 PM ? Pathologist: ? Chanell Ovalle, ? MD ? Specimen: ?Skin, left distal radial dorsal forearm ? 3 5:31 PM T DERMATOPATHOLOGY LABORATORY Final Diagnosis Specimen A. SKIN, left distal radial dorsal forearm: DERMAL SCAR RESIDUAL SQUAMOUS CELL CARCINOMA NOT IDENTIFIED (L90.5) 3 5:31 PM [facility] [place] DERMATOPATHOLOGY LABORATORY Clinical History Squamous Cell Carcinoma. Check Margins 3 5:31 PM T DERMATOPATHOLOGY LABORATORY Gross Description Specimen A: Received is one formalin filled container labeled with the patient's name and designated left distal radial dorsal forearm. The specimen consists of a non-oriented ellipse of skin measuring [id number] mm. The 12 o'clock and 6 o'clock tips are submitted in cassette 1. The remainder of the ellipse is serially sectioned and submitted in cassette 2 . Jar 0. 3 5:31 PM T DERMATOPATHOLOGY LABORATORY Microscopic Description Specimen A. SKIN, left distal radial dorsal forearm: There are fibroblasts and collagen bundles oriented parallel to the skin surface. There are elongated blood vessels, some of which are oriented perpendicular to the skin surface. No residual squamous cell carcinoma is identified. 3 5:31 PM CDT DERMATOPATHOLOGY LABORATORY Disclaimer An external and internal positive and negative controls are appropriate for the histochemical, immunohistochemical and immunofluorescence stain(s) in this case (if any), except where stated explicitly. The performance characteristics of the stain(s) cited in this report were developed and its performance characteristic determined by the Dermatopathology Laboratory at [facility], directed by Dr. Gabi Miguel. These tests need not be, and therefore are not, approved by the [place] Food and Drug Administration. The tests are used for clinical purposes. Billing Codes Specimen Charges Stain Charges 25249 1 3 5:31 PM CDT DERMATOPATHOLOGY LABORATORY Embedded Images 3 5:31 PM CDT DERMATOPATHOLOGY LABORATORY Pathology/Cytolog y TISSUE SPECIMEN FROM SKIN / Unknown 04/12/2023 04/13/2023 1:42 PM CDT Eliceo Moctezuma MD LAB - PATHOLOGY/CYTO LOGY ORDERABLES DERMATOPATHOLOGY LABORATORY [facility] - Department of Dermatology [address], [address] [phone] documented in this encounter Visit Diagnoses Diagnosis Squamous cell carcinoma of skin of left upper limb, including shoulder Squamous cell carcinoma of skin of upper limb, including shoulder documented in this encounter
[2024-08-03 12:20] LABS: Basophils Absolute Auto 0.1 K/mm3 (0.0-0.1); Basophils Percent Auto 0.6 % (0.2-1.2); Eosinophils Absolute Auto 0.1 K/mm3 (0-0.3); Eosinophils Percent Auto 1.4 % (0-4.4); Hematocrit 28.2 % (37.0-47.0); Immature Granulocyte Absolute 0.01 K/mm3 (0.00-0.031); Immature Granulocyte Percent A 0.1 % (0-0.5); Lymphocytes Absolute Auto 1.35 K/mm3 (0.9-3.2); Lymphocytes Percent Auto 15.9 % (18.3-44.2); Mean Corpuscular HGB Conc 31.9 g/dl (32-36); Mean Corpuscular Hemoglobin 32.8 pg (26-34); Mean Corpuscular Volume 102.9 fl (80-100); Mean Platelet Volume 9.1 fl (7.4-10.4); Monocytes Absolute Auto 0.6 K/mm3 (0.1-0.6); Monocytes Percent Auto 7.1 % (2.6-8.5); Neutrophils Absolute Auto 6.4 K/mm3 (1.3-6.7); Neutrophils Percent Auto 74.9 % (45.5-73.1); Platelet Count Result 398 k/mm3 (150-375); Red Blood Count 2.74 M/mm3 (4.2-5.4); Red Cell Distribution Width 16.6 % (11.5-14.5); White Blood Count 8.5 K/mm3 (4.5-10.0)
[2024-08-03 12:25] LABS: Glucose Point of Care 135 mg/dl (65-105)
[2024-08-03 12:33] LABS: Alanine Aminotransferase 11 U/L (6-35); Albumin Level 3.2 g/dL (3.5-5.1); Alkaline Phosphatase 79 U/L (38-126); Anion Gap 9 mmol/L (4-12); Aspartate Amino Transferase 22 U/L (14-36); Bilirubin,Total 0.3 mg/dL (0.2-1.3); Blood Urea Nitrogen 29 mg/dL (7-17); Calcium 8.1 mg/dL (8.4-10.2); Carbon Dioxide 22 mmol/L (22-30); Chloride 105 mmol/L (98-107); Estimated CRCL calculation 24 ml/min; Estimated Glomerular Filt Rate 31; Glucose 136 mg/dL (65-110); Potassium 4.8 mmol/L (3.4-5.0); Sodium 136 mmol/L (137-145)
[2024-08-03 12:40] LABS: Prothrombin Time 13.7 Seconds (11.1-14.7)
[2024-08-03 12:41] LABS: Partial Thromboplastin Time 24.3 Seconds (22.3-36.8)
[2024-08-03 12:43] LABS: Troponin I < 0.012 ng/mL (0.000-0.034)
[2024-08-03 13:44] LABS: Add Urine Microscopic? YES; Appearance Urine Clear (Clear); Bacteria Urine 1+ /hpf; Bilirubin Urine Negative (Negative); Blood Urine Negative (Negative); Color Urine Yellow (Yellow); Glucose Urine UA Negative (Negative); Ketones Urine Negative (Negative); Leukocyte Esterase Ur 1+ LEU/UL (Negative); Need Manual Microscopic Reviewed; Nitrate Urine Negative (Negative); Non Pathogenic Casts >20; Protein Urine Trace mg/dL (Negative); RBC Urine 0-2 /hpf (0-2); Specific Grav Ur 1.019 (1.001-1.035); Squamous Epithelial Cell Urine Few /hpf (Few); Urobilinogen Urine 0.2 mg/dL (<2.0)
--- NOTE | 2024-08-03 16:47 | ADMGEN ---
This patient, Della Lemus, was admitted to Medical Room 252-01. Patient/family oriented to hospital policies and general routines including ID bracelet, bed and alarms, visiting hours, pain management, procedures, bathroom and other care routines, personal items, smoking policy, room service/diet, and visiting hours. Information on how to activate the Rapid Response Team has been discussed. Patient/Family are encouraged to report perceived risks to care and to ask questions if they do not understand what they are told or what they should do.
--- NOTE | 2024-08-03 19:05 | PHAR ---
PT'S HOME MED IMATINIB 400 MG TABS VERIFIED BY PHARMACY
--- NOTE | 2024-08-03 20:12 | P.HP_ITS ---
H&P: HPI History of Present Illness Date/Time: 08/03/24 20:12 Chief Complaint: Weakness and slurred speech Narrative: 88-year-old female with past medical history of CVA, cervical cancer with Mets to liver status post Whipple presents the hospital with weakness and slurred speech. She states that she had gone to the bathroom and was unable to get up. She states that she uses a raised toilet and hand dental prosthetist but was too weak to get up. She states get around her house she uses a walker and sometimes a wheelchair. She states that she has left leg residual weakness from her prior CVA. However at this time she complains of the right leg being weaker than the left. She states that she feels like her weakness has improved along with her speech. Patient denies fall, burning with urination, loss of consciousness on or vomiting. Review of Systems Review of Systems: 12 systems were reviewed and are negativ e except for as per HPI. 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, metastatic to liver History of cervical cancer Surgical History Surgical History History of Whipple procedure (11/2014) History of hysterectomy with bilateral oophorectomy (1995) Hx of hernia repair (2017) Family History Family History Father Acute myocardial infarction Mother Rheumatic fever Social History Social History Smoking status: Never smoker Second hand tobacco smoke exposure: No Alcohol intake: never Substance use: never Do You Feel Safe in your Home?: Yes Lack of Transportation: No Lack of Food: Never True Current Housing: I Have Housing Concerned About Future Housing: No Difficulty Paying Gas/Electric Bills: No Difficulty Paying for Meds: No Currently Unemployed: No Education: High School Diploma/GED Difficulty w/ Childcare or Family Care: Decline to Answer Spiritual care concerns: Yes (Zoroastrianism) Meds Home Medications and Allergies Home Medications ?Medication ?Instructions ?Recorded ?Confirmed ?Type aspirin 325 mg tablet 325 mg PO DAILY 11/23/23 08/03/24 History imatinib 400 mg tablet 400 mg PO DAILY 11/23/23 08/03/24 History lisinopril 10 mg tablet 10 mg PO DAILY #90 tabs 11/23/23 08/03/24 Rx metformin 500 mg tablet,extended 2,000 mg (4 x 500 mg) PO DAILY 11/27/23 08/03/24 Rx release 24 hr #360 tabs simvastatin 40 mg tablet 40 mg PO DAILY #90 tabs 11/27/23 08/03/24 Rx calcium acetate 668 mg (169 mg 668 mg PO ONCE 04/26/24 08/03/24 History calcium) tablet cholecalciferol (vitamin D3) 10 10 mcg PO DAILY 04/26/24 08/03/24 History mcg (400 unit) capsule (Vitamin D3) vitamin B12 500 mcg-folic acid 400 1 tablet PO DAILY 04/26/24 08/03/24 History mcg tablet ferrous sulfate 325 mg (65 mg 325 mg PO DAILY 08/03/24 08/03/24 History iron) tablet (Feosol) Allergies Allergy/AdvReac Type Severity Reaction Status Date / Time morphine AdvReac Nausea and Verified 08/03/24 18:54 Vomiting Vital Signs Vital Signs - 24 hr 08/03/24 11:45 08/03/24 11:45 08/03/24 12:13 Temperature 98.0 F Pulse Rate 82 76 83 Respiratory Rate 20 17 17 Blood Pressure 139/56 L 132/65 120/65 Pulse Oximetry 97 98 97 Oxygen Delivery Room Air 08/03/24 12:20 08/03/24 15:39 08/03/24 16:21 Temperature Pulse Rate 82 79 79 Respiratory Rate 17 17 Blood Pressure 151/76 H Pulse Oximetry 100 99 Oxygen Delivery 08/03/24 20:07 Temperature 97.8 F Pulse Rate 74 Respiratory Rate 20 Blood Pressure 133/66 Pulse Oximetry 98 Oxygen Delivery H&P: Results Labs Labs: Short CBC 08/03/24 Range/Units 12:12 WBC 8.5 (4.5-10.0) K/mm3 Hgb 9.0 L (12.0-15.0) g/dL Hct 28.2 L (37.0-47.0) % Plt Count 398 H (150-375) k/mm3 BMP 08/03/24 12:12 Sodium 136 L Potassium 4.8 Chloride 105 Carbon Dioxide 22 BUN 29 H Creatinine 1.58 H Glucose 136 H Calcium 8.1 L Cardiac Enzymes 08/03/24 Range/Units 12:12 Troponin I < 0.012 (0.000-0.034) ng/mL Liver Function 08/03/24 Range/Units 12:12 Total Bilirubin 0.3 (0.2-1.3) mg/dL AST 22 (14-36) U/L ALT 11 (6-35) U/L Alkaline Phosphatase 79 (38-126) U/L Albumin 3.2 L (3.5-5.1) g/dL Urine 08/03/24 Range/Units 13:13 Urine Color Yellow (Yellow) Urine Appearance Clear (Clear) Urine pH 5.0 (5.0-9.0) Ur Specific [place] 1.019 (1.001-1.035) Urine Protein Trace (Negative) mg/dL Urine Glucose (UA) Negative (Negative) mg/dL Assessment and Plan Assessment and plan (1) Brain TIA: Code(s): G45.9 - Transient cerebral ischemic attack, unspecified Status: Acute Assessment and Plan: Slurred speech resolved, right leg weakness CT able no acute findings Aspirin given in ED Neurology consulted pending recommendations Patient okay for diet PT and OT evaluation personnel monitor (2) Essential (primary) hypertension: Code(s): I10 - Essential (primary) hypertension Status: Acute Assessment and Plan: Hold home also lisinopril l due to creatinine Monitor BP (3) UTI (urinary tract infection): Code(s): N39.0 - Urinary tract infection, site not specified Status: Acute Assessment and Plan: IV Rocephin Cultures and sensitivities pending IV fluids for hydration (4) NAHUN (acute kidney injury): Code(s): N17.9 - Acute kidney failure, unspecified Status: Acute Assessment and Plan: No known history of CKD, no prior creatinine level Hold lisinopril and metformin while in hospital IV fluids for hydration Repeat BMP in the morning (5) Cancer, metastatic to liver: Onset Date: 06/2014 Code(s): C78.7 - Secondary malignant neoplasm of liver and intrahepatic bile duct Status: Acute Assessment and Plan: Okay for patient to bring chemotherapy medication from home Plan Iron deficiency anemia continue iron supplement Quality VTE Prophylaxis VTE prophylaxis: mechanical ordered and pharmacologic ordered Hospitalist MIPS Advance Care Plan I have confirmed that the patient's Advanced Care Plan is present, code status is documented, or surrogate decision maker is listed in patient medical record.: Yes Medication Reconciliation I have utilized all available resources to obtain, update and review the patients current medications (includes all prescriptions, OTC, herbals, cannabis, and nutritional supplements).: Yes
[2024-08-03] MEDS: IMATINIB MESYLATE 400 MG 1 EACH PO (21:36)
[2024-08-04] VITALS (9 sets, daily range): BP systolic 121–143; BP diastolic 56–75; PULSE 75–115; RESP 12–16; TEMP 36.2–36.8; O2SAT 96–99
[2024-08-04] MEDS: ACETAMINOPHEN 325 MG TABLET 650 MG PO (00:57)
--- NOTE | 2024-08-04 07:44 | PM.IMPN ---
Progress Note: A&P Assessment and Plan (1) CVA (cerebral vascular accident): Code(s): I63.9 - Cerebral infarction, unspecified Status: Acute Assessment and Plan: Patient presents to the hospital for weakness and slurred speech. - Lipid panel ordered - Head CT: 1. Small old bilateral cerebellar infarcts. No acute intracranial process. 2. Age-related changes including mild to moderate diffuse volume loss and moderate scattered white matter hypoattenuation consistent with chronic small vessel ischemic. 3. Likely chronic sinus disease. - Head/neck CTA: 1. Small amount of atherosclerotic plaque with 0% stenosis of the right and left carotid bulbs relative to normal distal artery lumen diameter (NASCET criteria). 2. Unremarkable cerebral CT angiogram with no aneurysm, thrombosis or hemodynamically significant stenosis. - MRI Focal acute infarct at the left insular cortex. Moderate to advanced chronic microvascular ischemic change otherwise. Left maxillary sinus disease and bilateral mastoid effusions. - Echo ordered - EEG ordered - Start high-intensity statin - Started on dual antiplatelet therapy: 81 mg asa and 75 mg plavix - Telemetry monitoring - Monitor blood glucose - Monitor CBC, CMP, magnesium, troponin, and lipid profile - Monitor blood pressure, allow for permissive hypertension. - PT/OT eval and treat - Speech eval, patient noted to be pocketing food - Neurology consulted, appreciate assistance and recommendations (2) Essential (primary) hypertension: Code(s): I10 - Essential (primary) hypertension Status: Acute Assessment and Plan: Chronic, currently holding blood pressure medications given elevated BUN/Cr with unknown baseline - Hold lisinopril 10 mg daily - Resume medication as appropriate - Blood pressures remain stable, continue to monitor (3) UTI (urinary tract infection): Code(s): N39.0 - Urinary tract infection, site not specified Status: Acute Assessment and Plan: Given patients age and that she was having neurological symptoms - UA: clear appearance with negative nitrates, 1+ leukocytes, 11-20 WBC, 1+ bacteria, and few squamous cells present. - UC obtained on 08/03: pending - No previous micro to be reviewed - started on Rocephin on 08/04 (4) NAHUN (acute kidney injury): Code(s): N17.9 - Acute kidney failure, unspecified Status: Acute Assessment and Plan: No known history of CKD, no prior creatinine level - BUN/Cr 29/.58 with GFR 31 on admission - Hold lisinopril and metformin while in hospital - 1L NS bolus x1 at 75 ml/hr (5) Cancer, metastatic to liver: Onset Date: 06/2014 Code(s): C78.7 - Secondary malignant neoplasm of liver and intrahepatic bile duct Status: Acute Assessment and Plan: Cervical cancer with metastasis to the liver s/p Whipple - Continue imatinib 400 mg daily, patient will need to bring this from home (6) Type 2 diabetes mellitus without complications: Code(s): E11.9 - Type 2 diabetes mellitus without complications Status: Acute Assessment and Plan: - hypoglycemia protocol - POC blood glucose ACHS - home medication - metformin 2000 mg daily - correct regimen ordered - low dose TIDWM and HS - A1C 6.2 Time Spent With Patient Time with patient: 25 - 35 minutes Subjective Date/time seen: 08/04/24 07:44 Interval history: 88 year old female with past medical history of CVA, cervical cancer with metastasis to the liver s/p Whipple, DM, and hypertension presents to the hospital for weakness and slurred speech. Patient is pleasant lying comfortably in bed with family at bedside. She continues to endorse slurred speech and weakness. She has no other complaints denies chest pain, shortness of breath, palpitations, nausea/ vomiting, and abdominal pain. Review of Systems Review of Systems: All systems reviewed & are unremarkable except as noted in HPI and below Exam Narrative: AF HR 81 RR 14 SpO2 96 BP 121/56 General: female in no acute respiratory distress who is nontoxic appearing, lying semi recumbent in bed. HEENT: Normocephalic. Atraumatic. Extraocular movement intact. Sclera clear and anicteric. No facial asymmetry. Chest: Lungs are clear to auscultation bilaterally. No wheezes or crackles. CV: Heart was regular rate and rhythm. S1-S2. No murmurs, gallops, or rubs. Abd: Abdomen was soft. Nontender. Nondistended. Positive bowel sounds. No organomegaly or masses. Ext: No clubbing, cyanosis, or edema. 2+ DP pulses bilaterally. Neuro: Patient is alert and oriented x4. Strength is 5/5 in both upper and lower extremities with pushes and pulls. No upper extremity drift. Cranial nerves 2-12 are intact. Speech is clear but slightly slurred. Objective Data Vital Signs Vital Signs: Vital Signs - 24 hr 08/03/24 11:45 08/03/24 11:45 08/03/24 12:13 Temperature 98.0 F Pulse Rate 82 76 83 Respiratory Rate 20 17 17 Blood Pressure 139/56 L 132/65 120/65 Pulse Oximetry 97 98 97 Oxygen Delivery Room Air 08/03/24 12:20 08/03/24 15:39 08/03/24 16:21 Temperature Pulse Rate 82 79 79 Respiratory Rate 17 17 Blood Pressure 151/76 H Pulse Oximetry 100 99 Oxygen Delivery 08/03/24 20:00 08/03/24 20:07 08/03/24 21:36 Temperature 97.8 F Pulse Rate 86 74 Respiratory Rate 20 Blood Pressure 133/66 Pulse Oximetry 98 97 Oxygen Delivery Room Air 08/04/24 00:00 08/04/24 00:00 08/04/24 04:00 Temperature 97.5 F L Pulse Rate 101 H 103 H 78 Respiratory Rate 16 Blood Pressure 143/75 H Pulse Oximetry 97 Oxygen Delivery 08/04/24 05:41 Temperature 97.7 F Pulse Rate 75 Respiratory Rate 12 Blood Pressure 128/58 L Pulse Oximetry 97 Oxygen Delivery Intake/Output Intake/Output: Intake & Output 08/01/24 08/02/24 08/03/24 08/04/24 23:59 23:59 23:59 23:59 Intake Total 290 200 Output Total 75 600 Balance 215 -400 Meds/Results Medications: Active Medications Generic Name Dose Route Start Last Admin Trade Name Freq PRN Reason Stop Dose Admin Acetaminophen 650 mg 08/03/24 15:08 08/04/24 00:57 Acetaminophen 325 Mg Tablet PO 650 mg Q4H PRN Administration Mild Pain (1-3) or Fever Aspirin 325 mg 08/04/24 09:00 Aspirin 325 Mg Tablet PO DAILY [facility] Calcium Acetate 667 mg 08/04/24 09:00 Calcium Acetate 667 Mg Tablet PO DAILY [facility] Ferrous Sulfate 325 mg 08/04/24 09:00 Ferrous Sulfate [address] PO DAILY [facility] Ceftriaxone Sodium 1 gm in 50 mls @ 100 mls/hr 08/03/24 15:05 08/03/24 16:14 Rocephin 1 Gm/Ns 50 Ml IVPB Infused Q24H JESSICA Infusion Non-Formulary ( 1 each 08/03/24 21:00 08/03/24 21:36 Imatinib Mesylate PO 09/02/24 20:59 1 each 400 Mg Oral Tablet) HS JESSICA Administration Simvastatin 40 mg 08/04/24 21:00 Simvastatin 20 Mg Tablet PO HS JESSICA Radiology Results: ITS Impressions Head CT 08/03/24 11:36 IMPRESSION: 1. Small old bilateral cerebellar infarcts. No acute intracranial process. 2. Age-related changes including mild to moderate diffuse volume loss and moderate scattered white matter hypoattenuation consistent with chronic small vessel ischemic. 3. Likely chronic sinus disease. Chest X-Ray 08/03/24 11:50 IMPRESSION: 1. Mild opacities at the left lung base along the mildly elevated left hemidiaphragm and favor atelectasis over pneumonia. Head/Neck CTA 08/03/24 13:38 IMPRESSION: 1. Small amount of atherosclerotic plaque with 0% stenosis of the right and left carotid bulbs relative to normal distal artery lumen diameter (NASCET criteria). 2. Unremarkable cerebral CT angiogram with no aneurysm, thrombosis or hemodynamically significant stenosis. Labs Labs: Laboratory Results - last 24 hr 08/03/24 08/03/24 08/03/24 12:12 12:20 13:13 WBC 8.5 RBC 2.74 L Hgb 9.0 L Hct 28.2 L MCV 102.9 H MCH 32.8 MCHC 31.9 L RDW 16.6 H Plt Count 398 H MPV 9.1 Immature Gran % (Auto) 0.1 Neut % (Auto) 74.9 H Lymph % (Auto) 15.9 L [place] % (Auto) 7.1 Eos % (Auto) 1.4 Baso % (Auto) 0.6 Lymph # (Auto) 1.35 [place] # (Auto) 0.6 Eos # (Auto) 0.1 Baso # (Auto) 0.1 Abs Immat Gran (auto) 0.01 Absolute Neuts (auto) 6.4 Absolute Nucleated RBC 0.000 Nucleated RBC % 0.0 PT 13.7 INR 1.0 APTT 24.3 Sodium 136 L Potassium 4.8 Chloride 105 Carbon Dioxide 22 Anion Gap 9 BUN 29 H Creatinine 1.58 H Estim Creat Clear Calc 24 Estimated GFR 31 L Glucose 136 H POC Capillary Glucose 135 H Calcium 8.1 L Total Bilirubin 0.3 AST 22 ALT 11 Alkaline Phosphatase 79 Troponin I < 0.012 Total Protein 6.0 L Albumin 3.2 L Urine Color Yellow Urine Appearance Clear Urine pH 5.0 Ur Specific [place] 1.019 Urine Protein Trace Urine Glucose (UA) Negative Urine Ketones Negative Ur Blood (Man) Negative Urine Nitrate Negative Urine Bilirubin Negative Urine Urobilinogen 0.2 Add Ur Microanalysis Reviewed Leukocyte Esterase Rfl 1+ H Urine RBC 0-2 Urine WBC 11-20 H Ur Squamous Epith Cells Few Urine Bacteria 1+ H Urine Casts >20 Quality VTE Prophylaxis VTE prophylaxis: mechanical ordered
[2024-08-04] MEDS: FERROUS SULFATE 325 MG TABLET DR PO (08:28)
[2024-08-04] MEDS: ASPIRIN 325 MG TABLET PO (08:28)
[2024-08-04] MEDS: CALCIUM ACETATE 667 MG TABLET PO (08:28)
[2024-08-04] MEDS: SODIUM CHLORIDE 0.9% IV 1,000 ML 75 ML IV CONT (08:36)
[2024-08-04 08:43] LABS: Glucose Point of Care 141 mg/dl (65-105)
[2024-08-04 09:16] LABS: Basophils Percent Auto 0.5 % (0.2-1.2); Eosinophils Absolute Auto 0.1 K/mm3 (0-0.3); Eosinophils Percent Auto 1.2 % (0-4.4); Hematocrit 29.3 % (37.0-47.0); Hemoglobin 9.3 g/dL (12.0-15.0); Immature Granulocyte Absolute 0.02 K/mm3 (0.00-0.031); Immature Granulocyte Percent A 0.4 % (0-0.5); Lymphocytes Absolute Auto 0.95 K/mm3 (0.9-3.2); Lymphocytes Percent Auto 16.8 % (18.3-44.2); Mean Corpuscular HGB Conc 31.7 g/dl (32-36); Mean Corpuscular Hemoglobin 32.5 pg (26-34); Mean Corpuscular Volume 102.4 fl (80-100); Mean Platelet Volume 9.2 fl (7.4-10.4); Monocytes Absolute Auto 0.5 K/mm3 (0.1-0.6); Monocytes Percent Auto 8.3 % (2.6-8.5); Neutrophils Absolute Auto 4.1 K/mm3 (1.3-6.7); Neutrophils Percent Auto 72.8 % (45.5-73.1); Platelet Count Result 412 k/mm3 (150-375); Red Blood Count 2.86 M/mm3 (4.2-5.4); Red Cell Distribution Width 16.7 % (11.5-14.5); White Blood Count 5.7 K/mm3 (4.5-10.0)
[2024-08-04 09:30] LABS: Alanine Aminotransferase 10 U/L (6-35); Albumin Level 3.1 g/dL (3.5-5.1); Alkaline Phosphatase 81 U/L (38-126); Anion Gap 6 mmol/L (4-12); Aspartate Amino Transferase 24 U/L (14-36); Bilirubin,Total 0.3 mg/dL (0.2-1.3); Blood Urea Nitrogen 23 mg/dL (7-17); Calcium 8.2 mg/dL (8.4-10.2); Carbon Dioxide 25 mmol/L (22-30); Chloride 106 mmol/L (98-107); Cholesterol 131 mg/dL (0-200); Estimated CRCL calculation 27 ml/min; Estimated Glomerular Filt Rate 36; Glucose 152 mg/dL (65-110); HDL Direct 86 mg/dL; Potassium 4.4 mmol/L (3.4-5.0); Sodium 137 mmol/L (137-145); Triglycerides 70 mg/dL (<150)
[2024-08-04 09:34] LABS: Hemoglobin A1C 6.2 % (<5.7)
[2024-08-04 09:39] LABS: LDL Cholesterol Direct < 30 mg/dL
[2024-08-04 12:08] LABS: Glucose Point of Care 127 mg/dl (65-105)
--- NOTE | 2024-08-04 12:18 | WPDNEURCNPN ---
Assessment and Plan Assessment and plan (1) Brain TIA: Code(s): G45.9 - Transient cerebral ischemic attack, unspecified Status: Acute Plan 1. TIA 2. Abnormal CT scan with old bilateral cerebellar infarcts 3. 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 Will benefit from the MRI of the brain and an EEG. Consult date: 08/04/24 HPI: Della Lemus is a 88 year old female Admitted to the hospital through the emergency room where which she was transferred from the detention by ambulance stroke-like symptoms and with information she was last normal at 10:30 a.m., had breakfast, and went back to her room when she felt weird all the staff who noted that her right side was weaker and she was having speech difficulties subsequently on arrival in the ER patient's son at the bedside and according to him she did not look different. 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, also has history of Whipple procedure in 2014, initial exam in the emergency room not significant with normal vital signs, normal routine lab, initial CT scan with small old bilateral cerebellar infarct but no bleed chest x-ray with opacities at the left lung base and CTA with small amount of atherosclerotic plaque 0% stenosis of the right and left carotid bulb and also without aneurysm, she did mention to other physician she had gone to the bathroom was unable to get up but her right hand hand laminator when she tried to get up was very weak though generally she gets around in the house with a walker sometimes with a wheelchair because of the residual left-sided weakness from the old stroke. Review of Systems Review of Systems: All systems reviewed & are unremarkable except as noted in HPI and below PMFSH Past Medical History Medical History History of CVA (cerebrovascular accident) (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, metastatic to liver History of cervical cancer Surgical History Surgical History History of Whipple procedure (11/2014) History of hysterectomy with bilateral oophorectomy (1995) Hx of hernia repair (2017) Family History Family History Father Acute myocardial infarction Mother Rheumatic fever Social History Social History Smoking status: Never smoker Second hand tobacco smoke exposure: No Alcohol intake: never Substance use: never Do You Feel Safe in your Home?: Yes Lack of Transportation: No Lack of Food: Never True Current Housing: I Have Housing Concerned About Future Housing: No Difficulty Paying Gas/Electric Bills: No Difficulty Paying for Meds: No Currently Unemployed: No Education: High School Diploma/GED Difficulty w/ Childcare or Family Care: Decline to Answer Spiritual care concerns: Yes (Yarsanism) Meds Home Medications and Allergies Home Medications ?Medication ?Instructions ?Recorded ?Confirmed ?Type aspirin 325 mg tablet 325 mg PO DAILY 11/23/23 08/03/24 History imatinib 400 mg tablet 400 mg PO DAILY 11/23/23 08/03/24 History lisinopril 10 mg tablet 10 mg PO DAILY #90 tabs 11/23/23 08/03/24 Rx metformin 500 mg tablet,extended 2,000 mg (4 x 500 mg) PO DAILY 11/27/23 08/03/24 Rx release 24 hr #360 tabs simvastatin 40 mg tablet 40 mg PO DAILY #90 tabs 11/27/23 08/03/24 Rx calcium acetate 668 mg (169 mg 668 mg PO ONCE 04/26/24 08/03/24 History calcium) tablet cholecalciferol (vitamin D3) 10 10 mcg PO DAILY 04/26/24 08/03/24 History mcg (400 unit) capsule (Vitamin D3) vitamin B12 500 mcg-folic acid 400 1 tablet PO DAILY 04/26/24 08/03/24 History mcg tablet ferrous sulfate 325 mg (65 mg 325 mg PO DAILY 08/03/24 08/03/24 History iron) tablet (Feosol) Allergies Allergy/AdvReac Type Severity Reaction Status Date / Time morphine AdvReac Nausea and Verified 08/03/24 18:54 Vomiting Vital Signs Vital Signs - 24 hr 08/03/24 12:20 08/03/24 15:39 08/03/24 16:21 Temperature Pulse Rate 82 79 79 Respiratory Rate 17 17 Blood Pressure 151/76 H Pulse Oximetry 100 99 Oxygen Delivery 08/03/24 20:00 08/03/24 20:07 08/03/24 21:36 Temperature 36.6 C Pulse Rate 86 74 Respiratory Rate 20 Blood Pressure 133/66 Pulse Oximetry 98 97 Oxygen Delivery Room Air 08/04/24 00:00 08/04/24 00:00 08/04/24 04:00 Temperature 36.4 C L Pulse Rate 101 H 103 H 78 Respiratory Rate 16 Blood Pressure 143/75 H Pulse Oximetry 97 Oxygen Delivery 08/04/24 05:41 Temperature 36.5 C Pulse Rate 75 Respiratory Rate 12 Blood Pressure 128/58 L Pulse Oximetry 97 Oxygen Delivery Exam Narrative: Revealed her to be awake alert cooperative in no obvious acute distress, his speech not dysphasic not dysarthric not dysphonic, head normocephalic, ear nose throat examination normal, neck supple with no bruit, heart regular with no murmur, lungs clear to auscultation, abdomen soft nontender with normal bowel sounds, neurologically she is awake alert able to carry out the conversation able to relate to the physician with no evidence of dysphagia dysarthria or dysphonia pupils round regular feels the vision full extraocular movements full face symmetric tongue midline motor examination revealed no drift against gravity reflexes symmetrical plantars downgoing Results Labs 08/04/24 09:09 08/04/24 09:09 Labs: Short CBC 08/03/24 08/04/24 Range/Units 12:12 09:09 WBC 8.5 5.7 (4.5-10.0) K/mm3 Hgb 9.0 L 9.3 L (12.0-15.0) g/dL Hct 28.2 L 29.3 L (37.0-47.0) % Plt Count 398 H 412 H (150-375) k/mm3 BMP 08/03/24 08/04/24 12:12 09:09 Sodium 136 L 137 Potassium 4.8 4.4 Chloride 105 106 Carbon Dioxide 22 25 BUN 29 H 23 H Creatinine 1.58 H 1.40 H Glucose 136 H 152 H Calcium 8.1 L 8.2 L Cardiac Enzymes 08/03/24 Range/Units 12:12 Troponin I < 0.012 (0.000-0.034) ng/mL Liver Function 08/03/24 08/04/24 Range/Units 12:12 09:09 Total Bilirubin 0.3 0.3 (0.2-1.3) mg/dL AST 22 24 (14-36) U/L ALT 11 10 (6-35) U/L Alkaline Phosphatase 79 81 (38-126) U/L Albumin 3.2 L 3.1 L (3.5-5.1) g/dL Urine 08/03/24 Range/Units 13:13 Urine Color Yellow (Yellow) Urine Appearance Clear (Clear) Urine pH 5.0 (5.0-9.0) Ur Specific [place] 1.019 (1.001-1.035) Urine Protein Trace (Negative) mg/dL Urine Glucose (UA) Negative (Negative) mg/dL
--- NOTE | 2024-08-04 13:56 | PCPTNOTE ---
attempted PT evaluation 1330- pt just returned from MRI; she refused due to fatigue. Discussed pt with LINAD Maxwell, she reports pt is having more weakness than yesterday and she agreed with letting pt rest this afternoon.
[2024-08-04 16:37] LABS: Glucose Point of Care 117 mg/dl (65-105)
[2024-08-04 20:58] LABS: Glucose Point of Care 106 mg/dl (65-105)
[2024-08-04] MEDS: ATORVASTATIN 40 MG TABLET PO (20:59)
[2024-08-04] MEDS: IMATINIB MESYLATE 400 MG 1 EACH PO (21:02)
[2024-08-05] VITALS (10 sets, daily range): BP systolic 134–158; BP diastolic 61–88; PULSE 74–86; RESP 14–18; TEMP 36.3–36.7; O2SAT 96–99
--- NOTE | 2024-08-05 | ECHO_ITS ---
Patient Info Name: Della Lemus Age: 88 years : 1935 Gender: Female Ht: 59 in Wt: 189 lbs BSA: 1.94 m2 HR: 74 bpm BP: 140 / 61 mmHg Technical Quality: Fair Exam Date: 08/05/2024 12:27 PM Exam Location: Echo Lab Patient Status: Inpatient Admit Date: 08/05/2024 Staff Ordering Physician: Tanya Clemente PA-C Gauge Maker: Sonja Brantley RDCS Attending Provider: Tanya Clemente PA-C Referring Physician: Bryn MORALES; Exam Type: CA echo doppler w bubble study Study Info Indications - stroke workup Complete two-dimensional, color flow and Doppler transthoracic echocardiogram is performed with agitated saline. Contrast/Agitated Saline Contrast/Ag. Saline: Agitated Saline Amount: 20.00 ml Administered By: Sonja Brantley RDCS Existing IV Access: Yes Summary 1. Left ventricular chamber dimension is normal. 2. Left ventricular systolic function is normal, estimated at 65-70%. 3. There is mild concentric increased left ventricular wall thickness. 4. The left ventricular diastolic function is grade I diastolic dysfunction. 5. E/e' 15 is elevated. 6. Left atrial chamber dimension is mildly enlarged. 7. Agitated saline injection with vasalva maneuver opacified right side cardiac chambers with significant shunt of bubbles to left side cardiac chambers suggestive of patent foramen ovale. 8. There is moderate aortic valve sclerosis. 9. There is mild aortic valve stenosis with a peak velocity of 200 cm/s, mean gradient of 8 mmHg, and aortic valve area of 1.6 cm2. 10. There is trace mitral valve regurgitation. 11. There is trace tricuspid valve regurgitation. 12. No pulmonary hypertension, estimated pulmonary arterial systolic pressure is 31 mmHg. Left Ventricle E/e' 15 is elevated. Left ventricular chamber dimension is normal. Left ventricular systolic function is normal, estimated at 65-70%. There is mild concentric increased left ventricular wall thickness. The left ventricular diastolic function is grade I diastolic dysfunction. Right Ventricle Right ventricular chamber dimension is normal. Right ventricular systolic function is normal. Left Atria Left atrial chamber dimension is mildly enlarged. Right Atria Right atrial chamber dimension is normal. Atrial Septum Agitated saline injection with vasalva maneuver opacified right side cardiac chambers with significant shunt of bubbles to left side cardiac chambers suggestive of patent foramen ovale. Interatrial septum not well visualized by 2D and agitated saline imaging. Aortic Valve The aortic valve is trileaflet. There is moderate aortic valve sclerosis. There is mild aortic valve stenosis with a peak velocity of 200 cm/s, mean gradient of 8 mmHg, and aortic valve area of 1.6 cm2. There is no aortic valve regurgitation. Pulmonic Valve There is no pulmonic regurgitation. Mitral Valve There is no mitral valve stenosis. There is trace mitral valve regurgitation. Tricuspid Valve There is trace tricuspid valve regurgitation. No pulmonary hypertension, estimated pulmonary arterial systolic pressure is 31 mmHg. Pericardium/Pleural There is no pericardial effusion. Inferior Vena Cava Normal inferior vena cava with >50% collapse upon inspiration consistent with normal right atrial pressure, 5 mmHg. Aorta The aortic root size at the sinus of Valsalva is normal. Left Ventricular Outflow Tract Name Value Normal LVOT 2D LVOT Diameter 1.9 cm LVOT Doppler LVOT Peak Gradient 5 mmHg LVOT Mean Gradient 3 mmHg LVOT VTI 23 cm LVOT VTI/AV VTI Ratio 0.6 LVOT Stroke Volume 68 ml LVOT CO 4.9 l/min LVOT CI 2.5 l/min/m2 Pulmonic Valve Name Value Normal RVOT Doppler RVOT Peak Gradient 3 mmHg PV Doppler PV Peak Gradient 5 mmHg Mitral Valve Name Value Normal MV Doppler MV Decel [place] 532 cm/s2 MV PHT 40 ms MV Area (PHT) 5.4 cm2 4.0-5.0 MV Diastolic Function MV E Peak Velocity 74 cm/s MV A Peak Velocity 117 cm/s MV E/A 0.6 MV Decel Time 139 ms Tricuspid Valve Name Value Normal TV Regurgitation Doppler TR Peak Velocity 256 cm/s TR Peak Gradient 26 mmHg Estimated PAP/RSVP RA Pressure 5 mmHg <=5 PA Systolic Pressure 31 mmHg <36 RV Systolic Pressure 31 mmHg <36 Aorta Name Value Normal Ascending Aorta Ao Root Diameter (MM) 3.4 cm Ao Root Diam Index (MM) 1.8 cm/m2 Aortic Valve Name Value Normal AV Doppler AV Peak Velocity 200 cm/s AV Peak Gradient 16 mmHg AV Mean Gradient 8 mmHg AV VTI 42 cm AV Area (Cont Eq VTI) 1.6 cm2 >=3.0 AV Area (Cont Eq [place]) 1.6 cm2 AV Regurgitation 2D LVOT Area 2.9 cm2 Ventricles Name Value Normal LV Dimensions 2D/MM IVS Diastolic Thickness (2D) 1.4 cm 0.6-1.0 LVID Diastole (2D) 4.2 cm 3.8-5.2 LVIW Diastolic Thickness (2D) 1.3 cm 0.6-0.9 LVID Systole (2D) 2.8 cm 2.2-3.5 LVOT Diameter 1.9 cm LV Mass (2D Cubed) 203.24 g 67.00-162.00 LV Mass Index (2D Cubed) 105 g/m2 43-95 Relative Wall Thickness (2D) 0.61 LV Fractional Shortening/Ejection Fraction 2D/MM LV Fractional Shortening (2D) 34 % 27-45 LV EF (2D Teicholz) 63 % 54-74 LV Diastolic Volume (4C MOD) 74 ml LV EF (4C MOD) 69 % LV Diastolic Volume (2C MOD) 70 ml LV EF (2C MOD) 74 % LV Diastolic Volume (BP MOD) 72 ml 46-106 LV Diastolic Volume Index (BP MOD) 37 ml/m2 29-61 LV Systolic Volume (BP MOD) 21 ml 14-42 LV Systolic Volume Index (BP MOD) 11 ml/m2 8-24 LV EF (BP MOD) 71 % 54-74 LV Diastolic Length (4C) 7.5 cm LV Systolic Length (4C) 6.6 cm LV Stroke Volume (4C MOD) 51 ml Atria Name Value Normal LA Dimensions LA Dimension (MM) 3.6 cm 2.7-3.8 LA Volume (4C A-L) 55 ml LA Volume (BP A-L) 55 ml RA Dimensions RA Area (4C) 10.2 cm2 <=18.0 Report Signatures
[2024-08-05 06:20] LABS: Basophils Percent Auto 0.6 % (0.2-1.2); Eosinophils Absolute Auto 0.1 K/mm3 (0-0.3); Eosinophils Percent Auto 1.9 % (0-4.4); Hematocrit 28.1 % (37.0-47.0); Hemoglobin 8.9 g/dL (12.0-15.0); Immature Granulocyte Absolute 0.02 K/mm3 (0.00-0.031); Immature Granulocyte Percent A 0.3 % (0-0.5); Lymphocytes Percent Auto 18.9 % (18.3-44.2); Mean Corpuscular HGB Conc 31.7 g/dl (32-36); Mean Corpuscular Hemoglobin 32.1 pg (26-34); Mean Corpuscular Volume 101.4 fl (80-100); Mean Platelet Volume 9.2 fl (7.4-10.4); Monocytes Absolute Auto 0.5 K/mm3 (0.1-0.6); Monocytes Percent Auto 8.4 % (2.6-8.5); Neutrophils Absolute Auto 4.4 K/mm3 (1.3-6.7); Neutrophils Percent Auto 69.9 % (45.5-73.1); Platelet Count Result 386 k/mm3 (150-375); Red Blood Count 2.77 M/mm3 (4.2-5.4); Red Cell Distribution Width 16.8 % (11.5-14.5); White Blood Count 6.3 K/mm3 (4.5-10.0)
[2024-08-05 06:43] LABS: Alanine Aminotransferase 12 U/L (6-35); Alkaline Phosphatase 89 U/L (38-126); Anion Gap 7 mmol/L (4-12); Aspartate Amino Transferase 27 U/L (14-36); Bilirubin,Total 0.4 mg/dL (0.2-1.3); Blood Urea Nitrogen 20 mg/dL (7-17); Calcium 8.2 mg/dL (8.4-10.2); Carbon Dioxide 22 mmol/L (22-30); Chloride 108 mmol/L (98-107); Estimated CRCL calculation 28 ml/min; Estimated Glomerular Filt Rate 38; Glucose 105 mg/dL (65-110); Potassium 4.5 mmol/L (3.4-5.0); Sodium 137 mmol/L (137-145)
--- NOTE | 2024-08-05 07:30 | PM.IMPN ---
Progress Note: A&P Assessment and Plan (1) CVA (cerebral vascular accident): Code(s): I63.9 - Cerebral infarction, unspecified Status: Acute Assessment and Plan: Patient presents to the hospital for weakness and slurred speech. Patient on asa 325 and simvastatin prior to admission. She is unsure why she was only on aspirin given her history, she denies recent falls or GI bleeds. - Lipid panel unremarkable - Head CT: 1. Small old bilateral cerebellar infarcts. No acute intracranial process. 2. Age-related changes including mild to moderate diffuse volume loss and moderate scattered white matter hypoattenuation consistent with chronic small vessel ischemic. 3. Likely chronic sinus disease. - Head/neck CTA: 1. Small amount of atherosclerotic plaque with 0% stenosis of the right and left carotid bulbs relative to normal distal artery lumen diameter (NASCET criteria). 2. Unremarkable cerebral CT angiogram with no aneurysm, thrombosis or hemodynamically significant stenosis. - MRI Focal acute infarct at the left insular cortex. Moderate to advanced chronic microvascular ischemic change otherwise. Left maxillary sinus disease and bilateral mastoid effusions. - Echo ordered - EEG ordered - Start high-intensity statin - Started on dual antiplatelet therapy: 81 mg asa and 75 mg plavix - Telemetry monitoring - Monitor blood glucose - Monitor CBC, CMP, magnesium, troponin, and lipid profile - Monitor blood pressure, allow for permissive hypertension. - PT/OT eval and treat Recommending placement, care coordination following - Speech eval, patient noted to be pocketing food No intervention required - Neurology consulted, appreciate assistance and recommendations (2) Essential (primary) hypertension: Code(s): I10 - Essential (primary) hypertension Status: Acute Assessment and Plan: Chronic, currently holding blood pressure medications given elevated BUN/Cr with unknown baseline - Continue lisinopril 10 mg daily - Blood pressures remain stable, continue to monitor (3) UTI (urinary tract infection): Code(s): N39.0 - Urinary tract infection, site not specified Status: Acute Assessment and Plan: Given patients age and that she was having neurological symptoms - UA: clear appearance with negative nitrates, 1+ leukocytes, 11-20 WBC, 1+ bacteria, and few squamous cells present. - UC obtained on 08/03: klebsiella pneumoniae - No previous micro to be reviewed - started on Rocephin on 08/04 (4) NAHUN (acute kidney injury): Code(s): N17.9 - Acute kidney failure, unspecified Status: Acute Assessment and Plan: No known history of CKD, no prior creatinine level - BUN/Cr 29/1.58 with GFR 31 on admission - BUN/Cr 202/1.33 with GFR 38 on am labs - resumed lisinopril, continue to monitor - Hold metformin while in hospital - 1L NS bolus x1 at 75 ml/hr (5) Cancer, metastatic to liver: Onset Date: 06/2014 Code(s): C78.7 - Secondary malignant neoplasm of liver and intrahepatic bile duct Status: Acute Assessment and Plan: Cervical cancer with metastasis to the liver s/p Whipple - Continue imatinib 400 mg daily, patient will need to bring this from home (6) Type 2 diabetes mellitus without complications: Code(s): E11.9 - Type 2 diabetes mellitus without complications Status: Acute Assessment and Plan: - hypoglycemia protocol - POC blood glucose ACHS - home medication - metformin 2000 mg daily - correct regimen ordered - SSI TIDWM - A1C 6.2 Time Spent With Patient Time with patient: 25 - 35 minutes Subjective Date/time seen: 08/05/24 07:30 Interval history: 88 year old female with past medical history of CVA, cervical cancer with metastasis to the liver s/p Whipple, DM, and hypertension presents to the hospital for weakness and slurred speech. Patient is pleasant lying comfortably in bed with family at bedside. She notes that her speech has much improved today and denies any focal weakness. She has no complaints denying chest pain, shortness of breath, palpitations, nausea/vomiting and abdominal pain. Review of Systems Review of Systems: All systems reviewed & are unremarkable except as noted in HPI and below Exam Narrative: AF HR 86 RR 16 SpO2 97 BP 152/80 General: female in no acute respiratory distress who is nontoxic appearing, lying semi recumbent in bed. HEENT: Normocephalic. Atraumatic. Extraocular movement intact. Sclera clear and anicteric. No facial asymmetry. Chest: Lungs are clear to auscultation bilaterally. No wheezes or crackles. CV: Heart was regular rate and rhythm. S1-S2. No murmurs, gallops, or rubs. Abd: Abdomen was soft. Nontender. Nondistended. Positive bowel sounds. Ext: No clubbing, cyanosis, or edema. 2+ DP pulses bilaterally. Neuro: Patient is alert and oriented x4. Strength is 5/5 in both upper and lower extremities with pushes and pulls. No upper extremity drift. Speech is clear. Objective Data Vital Signs Vital Signs: Vital Signs - 24 hr 08/04/24 08:00 08/04/24 08:00 08/04/24 11:50 Temperature Pulse Rate 78 Respiratory Rate Blood Pressure Pulse Oximetry Oxygen Delivery Room Air Room Air 08/04/24 12:00 08/04/24 14:00 08/04/24 16:00 Temperature 98.3 F Pulse Rate 107 H 81 115 H Respiratory Rate 14 Blood Pressure 121/56 L Pulse Oximetry 96 Oxygen Delivery 08/04/24 20:00 08/04/24 20:00 08/04/24 20:39 Temperature 97.2 F L Pulse Rate 102 H 75 Respiratory Rate 14 Blood Pressure 140/61 Pulse Oximetry 99 Oxygen Delivery Room Air 08/05/24 00:00 08/05/24 04:00 08/05/24 07:00 Temperature 97.7 F Pulse Rate 75 78 86 Respiratory Rate 16 Blood Pressure 152/80 H Pulse Oximetry 97 Oxygen Delivery Intake/Output Intake/Output: Intake & Output 08/02/24 08/03/24 08/04/24 08/05/24 23:59 23:59 23:59 23:59 Intake Total 290 1890 330 Output Total 75 600 Balance 215 1290 330 Meds/Results Medications: Active Medications Generic Name Dose Route Start Last Admin Trade Name Freq PRN Reason Stop Dose Admin Acetaminophen 650 mg 08/03/24 15:08 08/04/24 00:57 Acetaminophen 325 Mg Tablet PO 650 mg Q4H PRN Administration Mild Pain (1-3) or Fever Aspirin 81 mg 08/05/24 09:00 Aspirin 325 Mg Tablet PO DAILY JESSICA Atorvastatin Calcium 40 mg 08/04/24 21:00 08/04/24 20:59 Atorvastatin 40 Mg Tablet PO 40 mg HS JESSICA Administration Calcium Acetate 667 mg 08/04/24 09:00 08/04/24 08:28 Calcium Acetate 667 Mg Tablet PO 667 mg DAILY JESSICA Administration Clopidogrel Bisulfate 75 mg 08/05/24 09:00 Clopidogrel Bisulfate 75 Mg Tablet PO QAM JESSICA Dextrose 12.5 gm 08/04/24 08:10 Dextrose 50% 25 Gm/50 Ml Syringe IV PUSH PRN PRN Hypoglycemia Protocol Ferrous Sulfate 325 mg 08/04/24 09:00 08/04/24 08:28 Ferrous Sulfate [address] PO 325 mg DAILY JESSICA Administration Glucagon 1 mg 08/04/24 08:10 Glucagon For Inj 1 Mg Vial IM PRN PRN Hypoglycemia Protocol Glucose 15 gm 08/04/24 08:10 Glucose Oral Gel 15 Gm Of Glucse In 37.5 Gm Tube PO PRN PRN Hypoglycemia Protocol Ceftriaxone Sodium 1 gm in 50 mls @ 100 mls/hr 08/03/24 15:05 08/04/24 16:13 Rocephin 1 Gm/Ns 50 Ml IVPB 100 mls/hr Q24H JESSICA Administration Dextrose 1,000 mls @ 100 mls/hr 08/04/24 08:10 Dextrose 5% 1,000 Ml IVPB PRN PRN Hypoglycemia Protocol Insulin Aspart 2 - 5 units 08/04/24 08:00 08/04/24 17:12 Insulin Aspart (*Bkc) 100 Units/Ml SUB-Q Not Given TIDWM JESSICA Protocol Non-Formulary ( 1 each 08/03/24 21:00 08/04/24 21:02 Imatinib Mesylate PO 09/02/24 20:59 1 each 400 Mg Oral Tablet) HS JESSICA Administration Perflutren Lipid Microsphere 0 ml 08/04/24 07:45 Perflutren Lipid Microspheres 1.5 Ml Vial Diluted To 10 Ml Total Volume IV PUSH 08/07/24 07:46 ONCE PRN adequate visualization Protocol Radiology Results: ITS Impressions Head CT 08/03/24 11:36 IMPRESSION: 1. Small old bilateral cerebellar infarcts. No acute intracranial process. 2. Age-related changes including mild to moderate diffuse volume loss and moderate scattered white matter hypoattenuation consistent with chronic small vessel ischemic. 3. Likely chronic sinus disease. Chest X-Ray 08/03/24 11:50 IMPRESSION: 1. Mild opacities at the left lung base along the mildly elevated left hemidiaphragm and favor atelectasis over pneumonia. Head/Neck CTA 08/03/24 13:38 IMPRESSION: 1. Small amount of atherosclerotic plaque with 0% stenosis of the right and left carotid bulbs relative to normal distal artery lumen diameter (NASCET criteria). 2. Unremarkable cerebral CT angiogram with no aneurysm, thrombosis or hemodynamically significant stenosis. Brain MRI 08/04/24 13:24 IMPRESSION: Focal acute infarct at the left insular cortex. Moderate to advanced chronic microvascular ischemic change otherwise. Left maxillary sinus disease and bilateral mastoid effusions. Labs Labs: Laboratory Results - last 24 hr 08/04/24 08/04/24 08/04/24 08:40 09:09 11:49 WBC 5.7 RBC 2.86 L Hgb 9.3 L Hct 29.3 L MCV 102.4 H MCH 32.5 MCHC 31.7 L RDW 16.7 H Plt Count 412 H MPV 9.2 Immature Gran % (Auto) 0.4 Neut % (Auto) 72.8 Lymph % (Auto) 16.8 L [place] % (Auto) 8.3 Eos % (Auto) 1.2 Baso % (Auto) 0.5 Lymph # (Auto) 0.95 [place] # (Auto) 0.5 Eos # (Auto) 0.1 Baso # (Auto) 0.0 Abs Immat Gran (auto) 0.02 Absolute Neuts (auto) 4.1 Absolute Nucleated RBC 0.000 Nucleated RBC % 0.0 Sodium 137 Potassium 4.4 Chloride 106 Carbon Dioxide 25 Anion Gap 6 BUN 23 H Creatinine 1.40 H Estim Creat Clear Calc 27 Estimated GFR 36 L Glucose 152 H POC Capillary Glucose 141 H 127 H Hemoglobin A1c 6.2 H Calcium 8.2 L Total Bilirubin 0.3 AST 24 ALT 10 Alkaline Phosphatase 81 Total Protein 6.0 L Albumin 3.1 L Triglycerides 70 Cholesterol 131 LDL Cholesterol Direct < 30 HDL Direct 86 08/04/24 08/04/24 08/05/24 16:34 20:41 06:03 WBC 6.3 RBC 2.77 L Hgb 8.9 L Hct 28.1 L MCV 101.4 H MCH 32.1 MCHC 31.7 L RDW 16.8 H Plt Count 386 H MPV 9.2 Immature Gran % (Auto) 0.3 Neut % (Auto) 69.9 Lymph % (Auto) 18.9 [place] % (Auto) 8.4 Eos % (Auto) 1.9 Baso % (Auto) 0.6 Lymph # (Auto) 1.20 [place] # (Auto) 0.5 Eos # (Auto) 0.1 Baso # (Auto) 0.0 Abs Immat Gran (auto) 0.02 Absolute Neuts (auto) 4.4 Absolute Nucleated RBC 0.000 Nucleated RBC % 0.0 Sodium 137 Potassium 4.5 Chloride 108 H Carbon Dioxide 22 Anion Gap 7 BUN 20 H Creatinine 1.33 H Estim Creat Clear Calc 28 Estimated GFR 38 L Glucose 105 POC Capillary Glucose 117 H 106 H Hemoglobin A1c Calcium 8.2 L Total Bilirubin 0.4 AST 27 ALT 12 Alkaline Phosphatase 89 Total Protein 6.0 L Albumin 3.0 L Triglycerides Cholesterol LDL Cholesterol Direct HDL Direct Quality VTE Prophylaxis VTE prophylaxis: mechanical ordered and pharmacologic ordered
[2024-08-05 08:07] LABS: Glucose Point of Care 114 mg/dl (65-105)
--- NOTE | 2024-08-05 08:51 | PCSTNOTE ---
Please refer to the Bedside Swallow Evaluation in the EMR. Please note, silent aspiration cannot be ruled out at bedside. The above pleasant and cooperative pt was seen for a swallow evaluation at the bedside. The pt was positioned upright in the bed. She was alert & oriented x 4 and able to follow commands. She is currently NPO awaiting ST evaluation. Oral mucosa is normal; natural dentition is in good condition; Cursory oral peripheral exam revealed lingual and labial structures to be WFL. She was able to dry swallow on command and exhibited a strong cough and clear vocal quality. She was tested with pudding, cracker, and thin liquids in controlled and uncontrolled amounts. The oral stages appeared WNL. No oral leakage or pocketing was noted. During the pharyngeal stage, swallow reflex appeared prompt & laryngeal elevation adequate. No overt s/s of aspiration were exhibited; however, silent aspiration cannot be ruled out at bedside. General impression is normal swallow ability. Recommendation: Regular diet with regular liquids. Thank you for this referral.
[2024-08-05] MEDS: lisinopriL 10 MG TABLET PO (09:56)
[2024-08-05] MEDS: ASPIRIN 325 MG TABLET 81 MG PO (09:56)
[2024-08-05] MEDS: FERROUS SULFATE 325 MG TABLET DR PO (09:57)
[2024-08-05] MEDS: CLOPIDOGREL BISULFATE 75 MG TABLET PO (09:57)
[2024-08-05] MEDS: CALCIUM ACETATE 667 MG TABLET PO (09:57)
[2024-08-05 11:50] LABS: Glucose Point of Care 123 mg/dl (65-105)
[2024-08-05 16:57] LABS: Glucose Point of Care 121 mg/dl (65-105)
[2024-08-05 20:06] LABS: Glucose Point of Care 164 mg/dl (65-105)
[2024-08-05] MEDS: ATORVASTATIN 40 MG TABLET PO (20:18)
[2024-08-05] MEDS: IMATINIB MESYLATE 400 MG 1 EACH PO (20:19)
[2024-08-06] VITALS (9 sets, daily range): BP systolic 127–149; BP diastolic 59–73; PULSE 73–110; RESP 14–20; TEMP 36.1–37; O2SAT 97–98
[2024-08-06 05:36] LABS: Basophils Percent Auto 0.7 % (0.2-1.2); Eosinophils Absolute Auto 0.2 K/mm3 (0-0.3); Eosinophils Percent Auto 3.5 % (0-4.4); Hematocrit 28.3 % (37.0-47.0); Immature Granulocyte Absolute 0.02 K/mm3 (0.00-0.031); Immature Granulocyte Percent A 0.4 % (0-0.5); Lymphocytes Absolute Auto 1.06 K/mm3 (0.9-3.2); Lymphocytes Percent Auto 18.7 % (18.3-44.2); Mean Corpuscular HGB Conc 31.8 g/dl (32-36); Mean Corpuscular Hemoglobin 32.4 pg (26-34); Mean Corpuscular Volume 101.8 fl (80-100); Mean Platelet Volume 9.3 fl (7.4-10.4); Monocytes Absolute Auto 0.5 K/mm3 (0.1-0.6); Monocytes Percent Auto 9.4 % (2.6-8.5); Neutrophils Absolute Auto 3.8 K/mm3 (1.3-6.7); Neutrophils Percent Auto 67.3 % (45.5-73.1); Platelet Count Result 358 k/mm3 (150-375); Red Blood Count 2.78 M/mm3 (4.2-5.4); Red Cell Distribution Width 16.9 % (11.5-14.5); White Blood Count 5.7 K/mm3 (4.5-10.0)
[2024-08-06 05:55] LABS: Alanine Aminotransferase 10 U/L (6-35); Alkaline Phosphatase 82 U/L (38-126); Anion Gap 7 mmol/L (4-12); Aspartate Amino Transferase 28 U/L (14-36); Bilirubin,Total 0.4 mg/dL (0.2-1.3); Blood Urea Nitrogen 19 mg/dL (7-17); Carbon Dioxide 22 mmol/L (22-30); Chloride 107 mmol/L (98-107); Estimated CRCL calculation 26 ml/min; Estimated Glomerular Filt Rate 33; Glucose 125 mg/dL (65-110); Potassium 4.3 mmol/L (3.4-5.0); Sodium 136 mmol/L (137-145)
[2024-08-06 08:08] LABS: Glucose Point of Care 126 mg/dl (65-105)
[2024-08-06] MEDS: FERROUS SULFATE 325 MG TABLET DR PO (08:15)
[2024-08-06] MEDS: CLOPIDOGREL BISULFATE 75 MG TABLET PO (08:15)
[2024-08-06] MEDS: lisinopriL 10 MG TABLET PO (08:15)
[2024-08-06] MEDS: ASPIRIN 325 MG TABLET 81 MG PO (08:15)
[2024-08-06] MEDS: CALCIUM ACETATE 667 MG TABLET PO (08:15)
--- NOTE | 2024-08-06 08:41 | P.PNIM_ITS ---
Progress Note: A&P Assessment and Plan (1) CVA (cerebral vascular accident): Code(s): I63.9 - Cerebral infarction, unspecified Status: Acute Assessment and Plan: Patient presents to the hospital for weakness and slurred speech. Patient on asa 325 and simvastatin prior to admission. She is unsure why she was only on aspirin given her history, she denies recent falls or GI bleeds. - Lipid panel unremarkable - Head CT: 1. Small old bilateral cerebellar infarcts. No acute intracranial process. 2. Age-related changes including mild to moderate diffuse volume loss and moderate scattered white matter hypoattenuation consistent with chronic small vessel ischemic. 3. Likely chronic sinus disease. - Head/neck CTA: 1. Small amount of atherosclerotic plaque with 0% stenosis of the right and left carotid bulbs relative to normal distal artery lumen diameter (NASCET criteria). 2. Unremarkable cerebral CT angiogram with no aneurysm, thrombosis or hemodynamically significant stenosis. - MRI Focal acute infarct at the left insular cortex. Moderate to advanced chronic microvascular ischemic change otherwise. Left maxillary sinus disease and bilateral mastoid effusions. - Echo LVEF 65-70% with grade I diastolic dysfunction. Agitated saline injection with vasalva maneuver opacified right side cardiac chambers with significant shunt of bubbles to left side cardiac chambers suggestive of patent foramen ovale. - EEG ordered - Start high-intensity statin - Started on dual antiplatelet therapy: 81 mg asa and 75 mg plavix - Telemetry monitoring - Monitor blood glucose - Monitor CBC, CMP, magnesium, troponin, and lipid profile - Monitor blood pressure, allow for permissive hypertension. - PT/OT eval and treat Recommending placement, care coordination following - Speech eval, patient noted to be pocketing food No intervention required - Neurology consulted, appreciate assistance and recommendations - Cardiology consulted for PARTH on echo, appreciate recommendations Doubt this is a cause of her TIA or stroke history and therefore no plan for closure No further cardiac workup in hospital , have her follow up in 1-2 weeks to obtain 30 day event monitor to check for PAF (2) Essential (primary) hypertension: Code(s): I10 - Essential (primary) hypertension Status: Acute Assessment and Plan: Chronic, currently holding blood pressure medications given elevated BUN/Cr with unknown baseline - Continue lisinopril 10 mg daily - Blood pressures remain stable, continue to monitor (3) UTI (urinary tract infection): Code(s): N39.0 - Urinary tract infection, site not specified Status: Acute Assessment and Plan: Given patients age and that she was having neurological symptoms - UA: clear appearance with negative nitrates, 1+ leukocytes, 11-20 WBC, 1+ bacteria, and few squamous cells present. - UC obtained on 08/03: klebsiella pneumoniae - No previous micro to be reviewed - started on Rocephin on 08/04, transitioned to keflex 08/06-08/09 (4) NAHUN (acute kidney injury): Code(s): N17.9 - Acute kidney failure, unspecified Status: Acute Assessment and Plan: No known history of CKD, no prior creatinine level - BUN/Cr 29/1.58 with GFR 31 on admission - BUN/Cr 19/1.49 with GFR 33 on am labs - resumed lisinopril, continue to monitor - Hold metformin while in hospital - 1L NS bolus x1 at 75 ml/hr (5) Cancer, metastatic to liver: Onset Date: 06/2014 Code(s): C78.7 - Secondary malignant neoplasm of liver and intrahepatic bile duct Status: Acute Assessment and Plan: Cervical cancer with metastasis to the liver s/p Whipple - Continue imatinib 400 mg daily, patient will need to bring this from home (6) Type 2 diabetes mellitus without complications: Code(s): E11.9 - Type 2 diabetes mellitus without complications Status: Acute Assessment and Plan: - hypoglycemia protocol - POC blood glucose ACHS - home medication - metformin 2000 mg daily - correct regimen ordered - SSI TIDWM - A1C 6.2 Time Spent With Patient Time with patient: 25 - 35 minutes Subjective Date/time seen: 08/06/24 08:41 Interval history: 88 year old female with past medical history of CVA, cervical cancer with metastasis to the liver s/p Whipple, DM, and hypertension presents to the hospital for weakness and slurred speech. patient is pleasant lying comfortably in bed. She states that her speech continues to be clear and that her weakness has resolved. She has no other complaints denies chest pain, shortness a breath, palpitations, nausea/ vomiting, and abdominal pain. Review of Systems Review of Systems: All systems reviewed & are unremarkable except as noted in HPI and below Exam Narrative: AF HR 75 RR 18 SpO2 98 BP 149/73 General: female in no acute respiratory distress who is nontoxic appearing, lying semi recumbent in bed. HEENT: Normocephalic. Atraumatic. Extraocular movement intact. Sclera clear and anicteric. No facial asymmetry. Chest: Lungs are clear to auscultation bilaterally. No wheezes or crackles. CV: Heart was regular rate and rhythm. S1-S2. No murmurs, gallops, or rubs. Abd: Abdomen was soft. Nontender. Nondistended. Positive bowel sounds. Ext: No clubbing, cyanosis, or edema. 2+ DP pulses bilaterally. Neuro: Patient is alert and oriented x4. Strength is 5/5 in both upper and lower extremities with pushes and pulls. No upper extremity drift. Speech is clear. Objective Data Vital Signs Vital Signs: Vital Signs - 24 hr 08/05/24 09:55 08/05/24 12:00 08/05/24 14:00 Temperature 97.4 F L Pulse Rate 74 81 Respiratory Rate 14 Blood Pressure 158/88 H Pulse Oximetry 99 Oxygen Delivery Room Air 08/05/24 16:00 08/05/24 19:52 08/05/24 20:00 Temperature 98.0 F Pulse Rate 78 81 Respiratory Rate 18 Blood Pressure 134/61 Pulse Oximetry 96 Oxygen Delivery Room Air 08/05/24 20:00 08/05/24 20:02 08/06/24 00:00 Temperature 98.0 F Pulse Rate 79 81 80 Respiratory Rate 18 Blood Pressure 134/61 Pulse Oximetry 96 Oxygen Delivery 08/06/24 04:00 08/06/24 05:00 Temperature 98.6 F Pulse Rate 76 75 Respiratory Rate 18 Blood Pressure 149/73 H Pulse Oximetry 98 Oxygen Delivery Intake/Output Intake/Output: Intake & Output 08/03/24 08/04/24 08/05/24 08/06/24 23:59 23:59 23:59 23:59 Intake Total 290 1940 1310 350 Output Total 75 600 350 500 Balance 215 1340 960 -150 Meds/Results Medications: Active Medications Generic Name Dose Route Start Last Admin Trade Name Freq PRN Reason Stop Dose Admin Acetaminophen 650 mg 08/03/24 15:08 08/04/24 00:57 Acetaminophen 325 Mg Tablet PO 650 mg Q4H PRN Administration Mild Pain (1-3) or Fever Aspirin 81 mg 08/05/24 09:00 08/06/24 08:15 Aspirin 325 Mg Tablet PO 81 mg DAILY JESSICA Administration Atorvastatin Calcium 40 mg 08/04/24 21:00 08/05/24 20:18 Atorvastatin 40 Mg Tablet PO 40 mg HS JESSICA Administration Calcium Acetate 667 mg 08/04/24 09:00 08/06/24 08:15 Calcium Acetate 667 Mg Tablet PO 667 mg DAILY JESSICA Administration Clopidogrel Bisulfate 75 mg 08/05/24 09:00 08/06/24 08:15 Clopidogrel Bisulfate 75 Mg Tablet PO 75 mg QAM JESSICA Administration Dextrose 12.5 gm 08/04/24 08:10 Dextrose 50% 25 Gm/50 Ml Syringe IV PUSH PRN PRN Hypoglycemia Protocol Ferrous Sulfate 325 mg 08/04/24 09:00 08/06/24 08:15 Ferrous Sulfate [address] PO 325 mg DAILY JESSICA Administration Glucagon 1 mg 08/04/24 08:10 Glucagon For Inj 1 Mg Vial IM PRN PRN Hypoglycemia Protocol Glucose 15 gm 08/04/24 08:10 Glucose Oral Gel 15 Gm Of Glucse In 37.5 Gm Tube PO PRN PRN Hypoglycemia Protocol Ceftriaxone Sodium 1 gm in 50 mls @ 100 mls/hr 08/03/24 15:05 08/05/24 15:47 Rocephin 1 Gm/Ns 50 Ml IVPB Infused Q24H JESSICA Infusion Dextrose 1,000 mls @ 100 mls/hr 08/04/24 08:10 Dextrose 5% 1,000 Ml IVPB PRN PRN Hypoglycemia Protocol Insulin Aspart 2 - 5 units 08/04/24 08:00 08/06/24 08:08 Insulin Aspart (*Bkc) 100 Units/Ml SUB-Q Not Given TIDWM [facility] Protocol Lisinopril 10 mg 08/05/24 09:00 08/06/24 08:15 Lisinopril 10 Mg Tablet PO 10 mg DAILY JESSICA Administration Non-Formulary ( 1 each 08/03/24 21:00 08/05/24 20:19 Imatinib Mesylate PO 09/02/24 20:59 1 each 400 Mg Oral Tablet) HS JESSICA Administration Perflutren Lipid Microsphere 0 ml 08/04/24 07:45 Perflutren Lipid Microspheres 1.5 Ml Vial Diluted To 10 Ml Total Volume IV PUSH 08/07/24 07:46 ONCE PRN adequate visualization Protocol Radiology Results: ITS Impressions Head CT 08/03/24 11:36 IMPRESSION: 1. Small old bilateral cerebellar infarcts. No acute intracranial process. 2. Age-related changes including mild to moderate diffuse volume loss and moderate scattered white matter hypoattenuation consistent with chronic small vessel ischemic. 3. Likely chronic sinus disease. Chest X-Ray 08/03/24 11:50 IMPRESSION: 1. Mild opacities at the left lung base along the mildly elevated left hemidiaphragm and favor atelectasis over pneumonia. Head/Neck CTA 08/03/24 13:38 IMPRESSION: 1. Small amount of atherosclerotic plaque with 0% stenosis of the right and left carotid bulbs relative to normal distal artery lumen diameter (NASCET criteria). 2. Unremarkable cerebral CT angiogram with no aneurysm, thrombosis or hemodynamically significant stenosis. Brain MRI 08/04/24 13:24 IMPRESSION: Focal acute infarct at the left insular cortex. Moderate to advanced chronic microvascular ischemic change otherwise. Left maxillary sinus disease and bilateral mastoid effusions. Labs Labs: Laboratory Results - last 24 hr 08/05/24 08/05/24 08/05/24 11:41 16:53 19:34 WBC RBC Hgb Hct MCV MCH MCHC RDW Plt Count MPV Immature Gran % (Auto) Neut % (Auto) Lymph % (Auto) [place] % (Auto) Eos % (Auto) Baso % (Auto) Lymph # (Auto) [place] # (Auto) Eos # (Auto) Baso # (Auto) Abs Immat Gran (auto) Absolute Neuts (auto) Absolute Nucleated RBC Nucleated RBC % Sodium Potassium Chloride Carbon Dioxide Anion Gap BUN Creatinine Estim Creat Clear Calc Estimated GFR Glucose POC Capillary Glucose 123 H 121 H 164 H Calcium Total Bilirubin AST ALT Alkaline Phosphatase Total Protein Albumin 08/06/24 08/06/24 05:09 08:03 WBC 5.7 RBC 2.78 L Hgb 9.0 L Hct 28.3 L MCV 101.8 H MCH 32.4 MCHC 31.8 L RDW 16.9 H Plt Count 358 MPV 9.3 Immature Gran % (Auto) 0.4 Neut % (Auto) 67.3 Lymph % (Auto) 18.7 [place] % (Auto) 9.4 H Eos % (Auto) 3.5 Baso % (Auto) 0.7 Lymph # (Auto) 1.06 [place] # (Auto) 0.5 Eos # (Auto) 0.2 Baso # (Auto) 0.0 Abs Immat Gran (auto) 0.02 Absolute Neuts (auto) 3.8 Absolute Nucleated RBC 0.000 Nucleated RBC % 0.0 Sodium 136 L Potassium 4.3 Chloride 107 Carbon Dioxide 22 Anion Gap 7 BUN 19 H Creatinine 1.49 H Estim Creat Clear Calc 26 Estimated GFR 33 L Glucose 125 H POC Capillary Glucose 126 H Calcium 8.0 L Total Bilirubin 0.4 AST 28 ALT 10 Alkaline Phosphatase 82 Total Protein 6.0 L Albumin 3.0 L Quality VTE Prophylaxis VTE prophylaxis: mechanical ordered and pharmacologic ordered
[2024-08-06 12:08] LABS: Glucose Point of Care 147 mg/dl (65-105)
--- NOTE | 2024-08-06 12:13 | P.CONCA_ITS ---
Assessment and Plan Assessment and plan (1) Brain TIA: Code(s): G45.9 - Transient cerebral ischemic attack, unspecified Status: Acute Assessment and Plan: Probably related to small vessels ischemic disease in brain. On dual antiplatelets. (2) Essential (primary) hypertension: Code(s): I10 - Essential (primary) hypertension Status: Acute Assessment and Plan: Stable. (3) Pure hypercholesterolemia, unspecified: Code(s): E78.00 - Pure hypercholesterolemia, unspecified Status: Acute Assessment and Plan: On Simvastatin. (4) PFO (patent foramen ovale): Code(s): Q21.12 - Patent foramen ovale Status: Acute Assessment and Plan: Discuss results of echo. Doubt this is cause of her TIA or stroke history, and therefore no plan for closure. No further cardiac workup in hospital. Upon discharge have her f/u with me in 1-2 weeks to obtain 30 day event monitor to check for PAF. History of Present Illness History of Present Illness Consult date/time: 08/06/24 12:13 Reason For Visit: tia,uti Narrative: 88 yr old woman presents to hospital with slurred speech. 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 She reports slurred speech and left arm weakness that did not last long and resolved. She is able to walk short distances where she lives with a walker for balance without any problems. Denies chest pain, sob, orthopnea, PND, edema, dizziness, palpitations. Review of Systems 2 Constitutional: Constitutional: Reports as per HPI, Denies chills and Denies fever(s) Cardiovascular: Cardiovascular: Reports as per HPI, Denies chest pain and Denies irregular heart rhythm Respiratory: Respiratory: Reports as per HPI and Denies dyspnea Gastrointestinal: Gastrointestinal: Reports as per HPI and Denies abdominal pain Genitourinary: Genitourinary: Reports as per HPI and Denies dysmenorrhea Musculoskeletal: Musculoskeletal: Reports as per HPI Neurologic: Reports as per HPI, Denies dizziness and Denies syncope FOR[facility]LY [facility] Past Medical History Medical History History of CVA (cerebrovascular accident) (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, metastatic to liver History of cervical cancer Surgical History Surgical History History of Whipple procedure (11/2014) History of hysterectomy with bilateral oophorectomy (1995) Hx of hernia repair (2017) Family History Family History Father Acute myocardial infarction Mother Rheumatic fever Social History Social History Smoking status: Never smoker Second hand tobacco smoke exposure: No Alcohol intake: never Substance use: never Do You Feel Safe in your Home?: Yes Lack of Transportation: No Lack of Food: Never True Current Housing: I Have Housing Concerned About Future Housing: No Difficulty Paying Gas/Electric Bills: No Difficulty Paying for Meds: No Currently Unemployed: No Education: High School Diploma/GED Difficulty w/ Childcare or Family Care: Decline to Answer Spiritual care concerns: Yes (Denominational) Meds Home Medications and Allergies Home Medications ?Medication ?Instructions ?Recorded ?Confirmed ?Type aspirin 325 mg tablet 325 mg PO DAILY 11/23/23 08/03/24 History imatinib 400 mg tablet 400 mg PO DAILY 11/23/23 08/03/24 History lisinopril 10 mg tablet 10 mg PO DAILY #90 tabs 11/23/23 08/03/24 Rx metformin 500 mg tablet,extended 2,000 mg (4 x 500 mg) PO DAILY 11/27/23 08/03/24 Rx release 24 hr #360 tabs simvastatin 40 mg tablet 40 mg PO DAILY #90 tabs 11/27/23 08/03/24 Rx calcium acetate 668 mg (169 mg 668 mg PO ONCE 04/26/24 08/03/24 History calcium) tablet cholecalciferol (vitamin D3) 10 10 mcg PO DAILY 04/26/24 08/03/24 History mcg (400 unit) capsule (Vitamin D3) vitamin B12 500 mcg-folic acid 400 1 tablet PO DAILY 04/26/24 08/03/24 History mcg tablet ferrous sulfate 325 mg (65 mg 325 mg PO DAILY 08/03/24 08/03/24 History iron) tablet (Feosol) Allergies Allergy/AdvReac Type Severity Reaction Status Date / Time morphine AdvReac Nausea and Verified 08/03/24 18:54 Vomiting Vital Signs Vital Signs - 24 hr 08/05/24 14:00 08/05/24 16:00 08/05/24 19:52 Temperature 97.4 F L 98.0 F Pulse Rate 81 78 81 Respiratory Rate 14 18 Blood Pressure 158/88 H 134/61 Pulse Oximetry 99 96 Oxygen Delivery 08/05/24 20:00 08/05/24 20:00 08/05/24 20:02 Temperature 98.0 F Pulse Rate 79 81 Respiratory Rate 18 Blood Pressure 134/61 Pulse Oximetry 96 Oxygen Delivery Room Air 08/06/24 00:00 08/06/24 04:00 08/06/24 05:00 Temperature 98.6 F Pulse Rate 80 76 75 Respiratory Rate 18 Blood Pressure 149/73 H Pulse Oximetry 98 Oxygen Delivery 08/06/24 08:15 08/06/24 08:15 Temperature Pulse Rate 110 H Respiratory Rate Blood Pressure Pulse Oximetry Oxygen Delivery Room Air Exam 2 Const: General: cooperative, healthy appearing and comfortable Resp: Auscultation: clear to auscultation bilaterally, no crackles, no rales, no rhonchi and no wheezes Cardio: Rate: regular rate Rhythm: regular rhythm Heart sounds: no murmurs Peripheral pulses: popliteal pulses present GI: GI Palp: No abdominal tenderness and Yes Soft to palpation Neuro: General: oriented to person, oriented to place and oriented to time Extrem: Right lower extremity: no edema Left lower extremity: no edema Results Labs and Meds 08/06/24 05:09 08/06/24 05:09 Lab results: Cardiac Enzymes 08/06/24 Range/Units 05:09 AST 28 (14-36) U/L CBC 08/06/24 Range/Units 05:09 WBC 5.7 (4.5-10.0) K/mm3 RBC 2.78 L (4.2-5.4) M/mm3 Hgb 9.0 L (12.0-15.0) g/dL Hct 28.3 L (37.0-47.0) % Plt Count 358 (150-375) k/mm3 Lymph # (Auto) 1.06 (0.9-3.2) K/mm3 [place] # (Auto) 0.5 (0.1-0.6) K/mm3 Eos # (Auto) 0.2 (0-0.3) K/mm3 Baso # (Auto) 0.0 (0.0-0.1) K/mm3 Comprehensive Metabolic Panel 08/06/24 Range/Units 05:09 Sodium 136 L (137-145) mmol/L Potassium 4.3 (3.4-5.0) mmol/L Chloride 107 (98-107) mmol/L Carbon Dioxide 22 (22-30) mmol/L BUN 19 H (7-17) mg/dL Creatinine 1.49 H (0.7-1.0) mg/dL Glucose 125 H (65-110) mg/dL Calcium 8.0 L (8.4-10.2) mg/dL AST 28 (14-36) U/L ALT 10 (6-35) U/L Alkaline Phosphatase 82 (38-126) U/L Total Protein 6.0 L (6.3-8.2) g/dL Albumin 3.0 L (3.5-5.1) g/dL Intake and Output 08/05/24 08/06/24 08/06/24 23:59 07:59 15:59 Intake Total 690 350 120 Output Total 350 500 Balance 340 -150 120 Intake: Oral 690 350 120 Output: Urine 200 Catheter Urine 350 300 External/Condom 350 300 Other: # Unmeasured Voids 1 1 Number of Bowel Movements Today 1
[2024-08-06] MEDS: CEPHALEXIN 250 MG CAPSULE PO ×2 (16:31→20:25)
[2024-08-06 17:03] LABS: Glucose Point of Care 139 mg/dl (65-105)
[2024-08-06 20:16] LABS: Glucose Point of Care 145 mg/dl (65-105)
[2024-08-06] MEDS: ACETAMINOPHEN 325 MG TABLET 650 MG PO (20:25)
[2024-08-06] MEDS: ATORVASTATIN 40 MG TABLET PO (20:25)
[2024-08-06] MEDS: IMATINIB MESYLATE 400 MG 1 EACH PO (20:26)
[2024-08-07] VITALS (8 sets, daily range): BP systolic 100–156; BP diastolic 56–60; PULSE 74–100; RESP 14–20; TEMP 36.4–37.1; O2SAT 97–98
[2024-08-07 05:49] LABS: Basophils Percent Auto 0.8 % (0.2-1.2); Eosinophils Absolute Auto 0.3 K/mm3 (0-0.3); Eosinophils Percent Auto 5.4 % (0-4.4); Hemoglobin 9.2 g/dL (12.0-15.0); Immature Granulocyte Absolute 0.01 K/mm3 (0.00-0.031); Immature Granulocyte Percent A 0.2 % (0-0.5); Lymphocytes Absolute Auto 1.19 K/mm3 (0.9-3.2); Lymphocytes Percent Auto 24.5 % (18.3-44.2); Mean Corpuscular HGB Conc 31.7 g/dl (32-36); Mean Corpuscular Hemoglobin 32.2 pg (26-34); Mean Corpuscular Volume 101.4 fl (80-100); Mean Platelet Volume 9.3 fl (7.4-10.4); Monocytes Absolute Auto 0.5 K/mm3 (0.1-0.6); Monocytes Percent Auto 9.9 % (2.6-8.5); Neutrophils Absolute Auto 2.9 K/mm3 (1.3-6.7); Neutrophils Percent Auto 59.2 % (45.5-73.1); Platelet Count Result 341 k/mm3 (150-375); Red Blood Count 2.86 M/mm3 (4.2-5.4); Red Cell Distribution Width 16.9 % (11.5-14.5); White Blood Count 4.9 K/mm3 (4.5-10.0)
[2024-08-07 06:00] LABS: Alanine Aminotransferase 12 U/L (6-35); Albumin Level 3.1 g/dL (3.5-5.1); Alkaline Phosphatase 81 U/L (38-126); Anion Gap 4 mmol/L (4-12); Aspartate Amino Transferase 27 U/L (14-36); Bilirubin,Total 0.4 mg/dL (0.2-1.3); Blood Urea Nitrogen 19 mg/dL (7-17); Calcium 8.5 mg/dL (8.4-10.2); Carbon Dioxide 27 mmol/L (22-30); Chloride 107 mmol/L (98-107); Estimated CRCL calculation 24 ml/min; Estimated Glomerular Filt Rate 31; Glucose 120 mg/dL (65-110); Potassium 4.6 mmol/L (3.4-5.0); Sodium 138 mmol/L (137-145)
[2024-08-07] MEDS: FERROUS SULFATE 325 MG TABLET DR PO (08:19)
[2024-08-07] MEDS: CLOPIDOGREL BISULFATE 75 MG TABLET PO (08:19)
[2024-08-07] MEDS: lisinopriL 10 MG TABLET PO (08:19)
[2024-08-07] MEDS: ASPIRIN 81 MG ENTERIC TABLET PO (08:19)
[2024-08-07] MEDS: CALCIUM ACETATE 667 MG TABLET PO (08:19)
[2024-08-07] MEDS: CEPHALEXIN 250 MG CAPSULE PO ×2 (08:19→20:38)
[2024-08-07 08:23] LABS: Glucose Point of Care 134 mg/dl (65-105)
[2024-08-07 12:11] LABS: Glucose Point of Care 151 mg/dl (65-105)
--- NOTE | 2024-08-07 13:57 | PM.IMPN ---
Progress Note: A&P Assessment and Plan (1) CVA (cerebral vascular accident): Code(s): I63.9 - Cerebral infarction, unspecified Status: Acute Assessment and Plan: Patient presents to the hospital for weakness and slurred speech. Patient on asa 325 and simvastatin prior to admission. She is unsure why she was only on aspirin given her history, she denies recent falls or GI bleeds. - Lipid panel unremarkable - Head CT: 1. Small old bilateral cerebellar infarcts. No acute intracranial process. 2. Age-related changes including mild to moderate diffuse volume loss and moderate scattered white matter hypoattenuation consistent with chronic small vessel ischemic. 3. Likely chronic sinus disease. - Head/neck CTA: 1. Small amount of atherosclerotic plaque with 0% stenosis of the right and left carotid bulbs relative to normal distal artery lumen diameter (NASCET criteria). 2. Unremarkable cerebral CT angiogram with no aneurysm, thrombosis or hemodynamically significant stenosis. - MRI Focal acute infarct at the left insular cortex. Moderate to advanced chronic microvascular ischemic change otherwise. Left maxillary sinus disease and bilateral mastoid effusions. - Echo LVEF 65-70% with grade I diastolic dysfunction. Agitated saline injection with vasalva maneuver opacified right side cardiac chambers with significant shunt of bubbles to left side cardiac chambers suggestive of patent foramen ovale. - EEG ordered - Start high-intensity statin - Started on dual antiplatelet therapy: 81 mg asa and 75 mg plavix - Telemetry monitoring - Monitor blood glucose - Monitor CBC, CMP, magnesium, troponin, and lipid profile - Monitor blood pressure, allow for permissive hypertension. - PT/OT eval and treat Recommending placement, care coordination following - Speech eval, patient noted to be pocketing food No intervention required - Neurology consulted, appreciate assistance and recommendations - Cardiology consulted for PARTH on echo, appreciate recommendations Doubt this is a cause of her TIA or stroke history and therefore no plan for closure No further cardiac workup in hospital , have her follow up in 1-2 weeks to obtain 30 day event monitor to check for PAF (2) Essential (primary) hypertension: Code(s): I10 - Essential (primary) hypertension Status: Acute Assessment and Plan: Chronic, currently holding blood pressure medications given elevated BUN/Cr with unknown baseline - Continue lisinopril 10 mg daily - Blood pressures remain stable, continue to monitor (3) UTI (urinary tract infection): Code(s): N39.0 - Urinary tract infection, site not specified Status: Acute Assessment and Plan: Given patients age and that she was having neurological symptoms - UA: clear appearance with negative nitrates, 1+ leukocytes, 11-20 WBC, 1+ bacteria, and few squamous cells present. - UC obtained on 08/03: klebsiella pneumoniae - No previous micro to be reviewed - started on Rocephin on 08/04, transitioned to keflex 08/06-08/09 (4) NAHUN (acute kidney injury): Code(s): N17.9 - Acute kidney failure, unspecified Status: Acute Assessment and Plan: No known history of CKD, no prior creatinine level - BUN/Cr 29/1.58 with GFR 31 on admission - BUN/Cr 19/1.49 with GFR 33 on am labs - resumed lisinopril, continue to monitor - Hold metformin while in hospital - 1L NS bolus x1 at 75 ml/hr -stable (5) Cancer, metastatic to liver: Onset Date: 06/2014 Code(s): C78.7 - Secondary malignant neoplasm of liver and intrahepatic bile duct Status: Acute Assessment and Plan: Cervical cancer with metastasis to the liver s/p Whipple - Continue imatinib 400 mg daily, patient will need to bring this from home (6) Type 2 diabetes mellitus without complications: Code(s): E11.9 - Type 2 diabetes mellitus without complications Status: Acute Assessment and Plan: - hypoglycemia protocol - POC blood glucose ACHS - home medication - metformin 2000 mg daily - correct regimen ordered - SSI TIDWM - A1C 6.2 Time Spent With Patient Time with patient: 25 - 35 minutes Subjective Date/time seen: 08/07/24 13:57 Interval history: 88 year old female with past medical history of CVA, cervical cancer with metastasis to the liver s/p Whipple, DM, and hypertension presents to the hospital for weakness and slurred speech. patient is pleasant lying comfortably in bed. She states that her speech continues to be clear and that her weakness has resolved. She has no other complaints denies chest pain, shortness a breath, palpitations, nausea/ vomiting, and abdominal pain. Pt is progressing slowly- attempt to d/c to [facility]- not approved per insurance as doing too well . Care coordination is aware. Review of Systems Review of Systems: 12 systems were reviewed and are negative except for as per HPI. All systems reviewed & are unremarkable except as noted in HPI and below Exam Narrative: General: female in no acute respiratory distress who is nontoxic appearing, lying semi recumbent in bed. HEENT: Normocephalic. Atraumatic. Extraocular movement intact. Sclera clear and anicteric. No facial asymmetry. Chest: Lungs are clear to auscultation bilaterally. No wheezes or crackles. CV: Heart was regular rate and rhythm. S1-S2. No murmurs, gallops, or rubs. Abd: Abdomen was soft. Nontender. Nondistended. Positive bowel sounds. Ext: No clubbing, cyanosis, or edema. 2+ DP pulses bilaterally. Neuro: Patient is alert and oriented x4. Strength is 5/5 in both upper and lower extremities with pushes and pulls. No upper extremity drift. Speech is clear. Const: General: comfortable Objective Data Vital Signs Vital Signs: Vital Signs - 24 hr 08/06/24 14:00 08/06/24 16:00 08/06/24 20:00 Temperature 97.8 F Pulse Rate 76 89 Respiratory Rate 14 Blood Pressure 127/59 L Pulse Oximetry 97 Oxygen Delivery Room Air 08/06/24 20:00 08/06/24 20:53 08/07/24 00:00 Temperature 96.9 F L Pulse Rate 77 73 74 Respiratory Rate 20 Blood Pressure 134/62 Pulse Oximetry 97 Oxygen Delivery 08/07/24 03:16 08/07/24 04:00 08/07/24 08:00 Temperature 97.6 F Pulse Rate 80 100 76 Respiratory Rate 20 Blood Pressure 156/56 H Pulse Oximetry 98 Oxygen Delivery 08/07/24 08:21 08/07/24 12:00 Temperature Pulse Rate 91 Respiratory Rate Blood Pressure Pulse Oximetry Oxygen Delivery Room Air Intake/Output Intake/Output: Intake & Output 08/04/24 08/05/24 08/06/24 08/07/24 23:59 23:59 23:59 23:59 Intake Total 1940 1310 2010 480 Output Total 220 228 5462 Balance 1340 960 270 480 Meds/Results Medications: Active Medications Generic Name Dose Route Start Last Admin Trade Name Freq PRN Reason Stop Dose Admin Acetaminophen 650 mg 08/03/24 15:08 08/06/24 20:25 Acetaminophen 325 Mg Tablet PO 650 mg Q4H PRN Administration Mild Pain (1-3) or Fever Aspirin 81 mg 08/07/24 09:00 08/07/24 08:19 Aspirin 81 Mg Enteric Tablet PO 81 mg QAM JESSICA Administration Atorvastatin Calcium 40 mg 08/04/24 21:00 08/06/24 20:25 Atorvastatin 40 Mg Tablet PO 40 mg HS JESSICA Administration Calcium Acetate 667 mg 08/04/24 09:00 08/07/24 08:19 Calcium Acetate 667 Mg Tablet PO 667 mg DAILY JESSICA Administration Cephalexin HCl 250 mg 08/06/24 13:15 08/07/24 08:19 Cephalexin 250 Mg Capsule PO 08/09/24 21:01 250 mg Q12HR JESSICA Administration Clopidogrel Bisulfate 75 mg 08/05/24 09:00 08/07/24 08:19 Clopidogrel Bisulfate 75 Mg Tablet PO 75 mg QAM JESSICA Administration Dextrose 12.5 gm 08/04/24 08:10 Dextrose 50% 25 Gm/50 Ml Syringe IV PUSH PRN PRN Hypoglycemia Protocol Ferrous Sulfate 325 mg 08/04/24 09:00 08/07/24 08:19 Ferrous Sulfate [address] PO 325 mg DAILY JESSICA Administration Glucagon 1 mg 08/04/24 08:10 Glucagon For Inj 1 Mg Vial IM PRN PRN Hypoglycemia Protocol Glucose 15 gm 08/04/24 08:10 Glucose Oral Gel 15 Gm Of Glucse In 37.5 Gm Tube PO PRN PRN Hypoglycemia Protocol Dextrose 1,000 mls @ 100 mls/hr 08/04/24 08:10 Dextrose 5% 1,000 Ml IVPB PRN PRN Hypoglycemia Protocol Insulin Aspart 2 - 5 units 08/04/24 08:00 08/07/24 12:25 Insulin Aspart (*Bkc) 100 Units/Ml SUB-Q Not Given TIDWM [facility] Protocol Lisinopril 10 mg 08/05/24 09:00 08/07/24 08:19 Lisinopril 10 Mg Tablet PO 10 mg DAILY JESSICA Administration Non-Formulary ( 1 each 08/03/24 21:00 08/06/24 20:26 Imatinib Mesylate PO 09/02/24 20:59 1 each 400 Mg Oral Tablet) HS JESSICA Administration Radiology Results: ITS Impressions Head CT 08/03/24 11:36 IMPRESSION: 1. Small old bilateral cerebellar infarcts. No acute intracranial process. 2. Age-related changes including mild to moderate diffuse volume loss and moderate scattered white matter hypoattenuation consistent with chronic small vessel ischemic. 3. Likely chronic sinus disease. Chest X-Ray 08/03/24 11:50 IMPRESSION: 1. Mild opacities at the left lung base along the mildly elevated left hemidiaphragm and favor atelectasis over pneumonia. Head/Neck CTA 08/03/24 13:38 IMPRESSION: 1. Small amount of atherosclerotic plaque with 0% stenosis of the right and left carotid bulbs relative to normal distal artery lumen diameter (NASCET criteria). 2. Unremarkable cerebral CT angiogram with no aneurysm, thrombosis or hemodynamically significant stenosis. Brain MRI 08/04/24 13:24 IMPRESSION: Focal acute infarct at the left insular cortex. Moderate to advanced chronic microvascular ischemic change otherwise. Left maxillary sinus disease and bilateral mastoid effusions. Labs Labs: Laboratory Results - last 24 hr 08/06/24 08/06/24 08/07/24 16:59 20:14 05:25 WBC 4.9 RBC 2.86 L Hgb 9.2 L Hct 29.0 L MCV 101.4 H MCH 32.2 MCHC 31.7 L RDW 16.9 H Plt Count 341 MPV 9.3 Immature Gran % (Auto) 0.2 Neut % (Auto) 59.2 Lymph % (Auto) 24.5 [place] % (Auto) 9.9 H Eos % (Auto) 5.4 H Baso % (Auto) 0.8 Lymph # (Auto) 1.19 [place] # (Auto) 0.5 Eos # (Auto) 0.3 Baso # (Auto) 0.0 Abs Immat Gran (auto) 0.01 Absolute Neuts (auto) 2.9 Absolute Nucleated RBC 0.000 Nucleated RBC % 0.0 Sodium 138 Potassium 4.6 Chloride 107 Carbon Dioxide 27 Anion Gap 4 BUN 19 H Creatinine 1.56 H Estim Creat Clear Calc 24 Estimated GFR 31 L Glucose 120 H POC Capillary Glucose 139 H 145 H Calcium 8.5 Total Bilirubin 0.4 AST 27 ALT 12 Alkaline Phosphatase 81 Total Protein 6.0 L Albumin 3.1 L 08/07/24 08/07/24 08:17 12:01 WBC RBC Hgb Hct MCV MCH MCHC RDW Plt Count MPV Immature Gran % (Auto) Neut % (Auto) Lymph % (Auto) [place] % (Auto) Eos % (Auto) Baso % (Auto) Lymph # (Auto) [place] # (Auto) Eos # (Auto) Baso # (Auto) Abs Immat Gran (auto) Absolute Neuts (auto) Absolute Nucleated RBC Nucleated RBC % Sodium Potassium Chloride Carbon Dioxide Anion Gap BUN Creatinine Estim Creat Clear Calc Estimated GFR Glucose POC Capillary Glucose 134 H 151 H Calcium Total Bilirubin AST ALT Alkaline Phosphatase Total Protein Albumin Quality VTE Prophylaxis VTE prophylaxis: mechanical ordered and pharmacologic ordered
[2024-08-07 16:55] LABS: Glucose Point of Care 147 mg/dl (65-105)
[2024-08-07 20:24] LABS: Glucose Point of Care 166 mg/dl (65-105)
[2024-08-07] MEDS: IMATINIB MESYLATE 400 MG 1 EACH PO (20:38)
[2024-08-07] MEDS: ATORVASTATIN 40 MG TABLET PO (20:38)
[2024-08-08] VITALS (9 sets, daily range): BP systolic 107–141; BP diastolic 50–58; PULSE 67–90; RESP 16; TEMP 36.5–36.8; O2SAT 95–99
[2024-08-08 06:21] LABS: Basophils Percent Auto 0.8 % (0.2-1.2); Eosinophils Absolute Auto 0.3 K/mm3 (0-0.3); Eosinophils Percent Auto 5.3 % (0-4.4); Hematocrit 27.7 % (37.0-47.0); Hemoglobin 8.8 g/dL (12.0-15.0); Immature Granulocyte Absolute 0.01 K/mm3 (0.00-0.031); Immature Granulocyte Percent A 0.2 % (0-0.5); Lymphocytes Absolute Auto 1.04 K/mm3 (0.9-3.2); Lymphocytes Percent Auto 19.7 % (18.3-44.2); Mean Corpuscular HGB Conc 31.8 g/dl (32-36); Mean Corpuscular Volume 100.7 fl (80-100); Mean Platelet Volume 9.4 fl (7.4-10.4); Monocytes Absolute Auto 0.5 K/mm3 (0.1-0.6); Monocytes Percent Auto 8.9 % (2.6-8.5); Neutrophils Absolute Auto 3.4 K/mm3 (1.3-6.7); Neutrophils Percent Auto 65.1 % (45.5-73.1); Platelet Count Result 326 k/mm3 (150-375); Red Blood Count 2.75 M/mm3 (4.2-5.4); Red Cell Distribution Width 17.1 % (11.5-14.5); White Blood Count 5.3 K/mm3 (4.5-10.0)
[2024-08-08 06:28] LABS: Alanine Aminotransferase 11 U/L (6-35); Albumin Level 2.9 g/dL (3.5-5.1); Alkaline Phosphatase 79 U/L (38-126); Anion Gap 4 mmol/L (4-12); Aspartate Amino Transferase 25 U/L (14-36); Bilirubin,Total 0.4 mg/dL (0.2-1.3); Blood Urea Nitrogen 20 mg/dL (7-17); Calcium 8.3 mg/dL (8.4-10.2); Carbon Dioxide 25 mmol/L (22-30); Chloride 107 mmol/L (98-107); Estimated CRCL calculation 25 ml/min; Estimated Glomerular Filt Rate 32; Glucose 125 mg/dL (65-110); Potassium 4.1 mmol/L (3.4-5.0); Sodium 136 mmol/L (137-145)
[2024-08-08 08:17] LABS: Glucose Point of Care 124 mg/dl (65-105)
[2024-08-08] MEDS: CEPHALEXIN 250 MG CAPSULE PO ×2 (08:23→20:13)
[2024-08-08] MEDS: lisinopriL 10 MG TABLET PO (08:23)
[2024-08-08] MEDS: CALCIUM ACETATE 667 MG TABLET PO (08:23)
[2024-08-08] MEDS: FERROUS SULFATE 325 MG TABLET DR PO (08:23)
[2024-08-08] MEDS: CLOPIDOGREL BISULFATE 75 MG TABLET PO (08:23)
[2024-08-08] MEDS: ASPIRIN 81 MG ENTERIC TABLET PO (08:23)
[2024-08-08 11:38] LABS: Glucose Point of Care 164 mg/dl (65-105)
--- NOTE | 2024-08-08 15:23 | PM.IMPN ---
Progress Note: A&P Assessment and Plan (1) CVA (cerebral vascular accident): Code(s): I63.9 - Cerebral infarction, unspecified Status: Acute Assessment and Plan: Patient presents to the hospital for weakness and slurred speech. Patient on asa 325 and simvastatin prior to admission. She is unsure why she was only on aspirin given her history, she denies recent falls or GI bleeds. - Lipid panel unremarkable - Head CT: 1. Small old bilateral cerebellar infarcts. No acute intracranial process. 2. Age-related changes including mild to moderate diffuse volume loss and moderate scattered white matter hypoattenuation consistent with chronic small vessel ischemic. 3. Likely chronic sinus disease. - Head/neck CTA: 1. Small amount of atherosclerotic plaque with 0% stenosis of the right and left carotid bulbs relative to normal distal artery lumen diameter (NASCET criteria). 2. Unremarkable cerebral CT angiogram with no aneurysm, thrombosis or hemodynamically significant stenosis. - MRI Focal acute infarct at the left insular cortex. Moderate to advanced chronic microvascular ischemic change otherwise. Left maxillary sinus disease and bilateral mastoid effusions. - Echo LVEF 65-70% with grade I diastolic dysfunction. Agitated saline injection with vasalva maneuver opacified right side cardiac chambers with significant shunt of bubbles to left side cardiac chambers suggestive of patent foramen ovale. - EEG ordered - Start high-intensity statin - Started on dual antiplatelet therapy: 81 mg asa and 75 mg plavix - Telemetry monitoring - Monitor blood glucose - Monitor CBC, CMP, magnesium, troponin, and lipid profile - Monitor blood pressure, allow for permissive hypertension. - PT/OT eval and treat Recommending placement, care coordination following - Speech eval, patient noted to be pocketing food No intervention required - Neurology consulted, appreciate assistance and recommendations - Cardiology consulted for PARTH on echo, appreciate recommendations Doubt this is a cause of her TIA or stroke history and therefore no plan for closure No further cardiac workup in hospital , have her follow up in 1-2 weeks to obtain 30 day event monitor to check for PAF (2) Essential (primary) hypertension: Code(s): I10 - Essential (primary) hypertension Status: Acute Assessment and Plan: Chronic, currently holding blood pressure medications given elevated BUN/Cr with unknown baseline - Continue lisinopril 10 mg daily - Blood pressures remain stable, continue to monitor (3) UTI (urinary tract infection): Code(s): N39.0 - Urinary tract infection, site not specified Status: Acute Assessment and Plan: Given patients age and that she was having neurological symptoms - UA: clear appearance with negative nitrates, 1+ leukocytes, 11-20 WBC, 1+ bacteria, and few squamous cells present. - UC obtained on 08/03: klebsiella pneumoniae - No previous micro to be reviewed - started on Rocephin on 08/04, transitioned to keflex 08/06-08/09 -conitnue (4) NAHUN (acute kidney injury): Code(s): N17.9 - Acute kidney failure, unspecified Status: Acute Assessment and Plan: No known history of CKD, no prior creatinine level - BUN/Cr 29/1.58 with GFR 31 on admission - BUN/Cr 19/1.49 with GFR 33 on am labs - resumed lisinopril, continue to monitor - Hold metformin while in hospital - 1L NS bolus x1 at 75 ml/hr -stable (5) Cancer, metastatic to liver: Onset Date: 06/2014 Code(s): C78.7 - Secondary malignant neoplasm of liver and intrahepatic bile duct Status: Acute Assessment and Plan: Cervical cancer with metastasis to the liver s/p Whipple - Continue imatinib 400 mg daily, patient will need to bring this from home (6) Type 2 diabetes mellitus without complications: Code(s): E11.9 - Type 2 diabetes mellitus without complications Status: Acute Assessment and Plan: - hypoglycemia protocol - POC blood glucose ACHS - home medication - metformin 2000 mg daily - correct regimen ordered - SSI TIDWM - A1C 6.2 Time Spent With Patient Time with patient: 25 - 35 minutes Subjective Date/time seen: 08/08/24 15:23 Interval history: 88 year old female with past medical history of CVA, cervical cancer with metastasis to the liver s/p Whipple, DM, and hypertension presents to the hospital for weakness and slurred speech. patient is pleasant lying comfortably in bed. She states that her speech continues to be clear and that her weakness has resolved. She has no other complaints denies chest pain, shortness a breath, palpitations, nausea/ vomiting, and abdominal pain. Pt is progressing slowly- attempt to d/c to [facility]- not approved per insurance as doing too well . Care coordination is aware. trouble with placement- insurance didnot aprove [facility] and unable o find SNF placement. Continue to work with care coordination. Review of Systems Review of Systems: 12 systems were reviewed and are negative except for as per HPI. All systems reviewed & are unremarkable except as noted in HPI and below Exam Narrative: General: female in no acute respiratory distress who is nontoxic appearing, lying semi recumbent in bed. HEENT: Normocephalic. Atraumatic. Extraocular movement intact. Sclera clear and anicteric. No facial asymmetry. Chest: Lungs are clear to auscultation bilaterally. No wheezes or crackles. CV: Heart was regular rate and rhythm. S1-S2. No murmurs, gallops, or rubs. Abd: Abdomen was soft. Nontender. Nondistended. Positive bowel sounds. Ext: No clubbing, cyanosis, or edema. 2+ DP pulses bilaterally. Neuro: Patient is alert and oriented x4. Strength is 5/5 in both upper and lower extremities with pushes and pulls. No upper extremity drift. Speech is clear. Const: General: comfortable Objective Data Vital Signs Vital Signs: Vital Signs - 24 hr 08/07/24 16:00 08/07/24 20:00 08/07/24 20:00 Temperature 98.8 F Pulse Rate 83 75 74 Respiratory Rate 17 Blood Pressure 122/57 L Pulse Oximetry 98 Oxygen Delivery 08/08/24 00:00 08/08/24 04:00 08/08/24 04:43 Temperature 97.9 F Pulse Rate 67 67 73 Respiratory Rate 16 Blood Pressure 141/58 H Pulse Oximetry 99 Oxygen Delivery 08/08/24 08:00 08/08/24 08:20 08/08/24 12:00 Temperature Pulse Rate 81 83 Respiratory Rate Blood Pressure Pulse Oximetry Oxygen Delivery Room Air 08/08/24 14:00 Temperature 97.7 F Pulse Rate 90 Respiratory Rate 16 Blood Pressure 107/50 L Pulse Oximetry 95 Oxygen Delivery Intake/Output Intake/Output: Intake & Output 08/05/24 08/06/24 08/07/24 08/08/24 23:59 23:59 23:59 23:59 Intake Total 1310 2009 1390 620 Output Total 350 1740 100 500 Balance 567 872 1587 120 Meds/Results Medications: Active Medications Generic Name Dose Route Start Last Admin Trade Name Freq PRN Reason Stop Dose Admin Acetaminophen 650 mg 08/03/24 15:08 08/06/24 20:25 Acetaminophen 325 Mg Tablet PO 650 mg Q4H PRN Administration Mild Pain (1-3) or Fever Aspirin 81 mg 08/07/24 09:00 08/08/24 08:23 Aspirin 81 Mg Enteric Tablet PO 81 mg QAM JESSICA Administration Atorvastatin Calcium 40 mg 08/04/24 21:00 08/07/24 20:38 Atorvastatin 40 Mg Tablet PO 40 mg HS JESSICA Administration Calcium Acetate 667 mg 08/04/24 09:00 08/08/24 08:23 Calcium Acetate 667 Mg Tablet PO 667 mg DAILY JESSICA Administration Cephalexin HCl 250 mg 08/06/24 13:15 08/08/24 08:23 Cephalexin 250 Mg Capsule PO 08/09/24 21:01 250 mg Q12HR JESSICA Administration Clopidogrel Bisulfate 75 mg 08/05/24 09:00 08/08/24 08:23 Clopidogrel Bisulfate 75 Mg Tablet PO 75 mg QAM JESSICA Administration Dextrose 12.5 gm 08/04/24 08:10 Dextrose 50% 25 Gm/50 Ml Syringe IV PUSH PRN PRN Hypoglycemia Protocol Ferrous Sulfate 325 mg 08/04/24 09:00 08/08/24 08:23 Ferrous Sulfate [address] PO 325 mg DAILY JESSICA Administration Glucagon 1 mg 08/04/24 08:10 Glucagon For Inj 1 Mg Vial IM PRN PRN Hypoglycemia Protocol Glucose 15 gm 08/04/24 08:10 Glucose Oral Gel 15 Gm Of Glucse In 37.5 Gm Tube PO PRN PRN Hypoglycemia Protocol Dextrose 1,000 mls @ 100 mls/hr 08/04/24 08:10 Dextrose 5% 1,000 Ml IVPB PRN PRN Hypoglycemia Protocol Insulin Aspart 2 - 5 units 08/04/24 08:00 08/08/24 11:46 Insulin Aspart (*Bkc) 100 Units/Ml SUB-Q Not Given TIDWM [facility] Protocol Lisinopril 10 mg 08/05/24 09:00 08/08/24 08:23 Lisinopril 10 Mg Tablet PO 10 mg DAILY JESSICA Administration Non-Formulary ( 1 each 08/03/24 21:00 08/07/24 20:38 Imatinib Mesylate PO 09/02/24 20:59 1 each 400 Mg Oral Tablet) HS JESSICA Administration Radiology Results: ITS Impressions Head CT 08/03/24 11:36 IMPRESSION: 1. Small old bilateral cerebellar infarcts. No acute intracranial process. 2. Age-related changes including mild to moderate diffuse volume loss and moderate scattered white matter hypoattenuation consistent with chronic small vessel ischemic. 3. Likely chronic sinus disease. Chest X-Ray 08/03/24 11:50 IMPRESSION: 1. Mild opacities at the left lung base along the mildly elevated left hemidiaphragm and favor atelectasis over pneumonia. Head/Neck CTA 08/03/24 13:38 IMPRESSION: 1. Small amount of atherosclerotic plaque with 0% stenosis of the right and left carotid bulbs relative to normal distal artery lumen diameter (NASCET criteria). 2. Unremarkable cerebral CT angiogram with no aneurysm, thrombosis or hemodynamically significant stenosis. Brain MRI 08/04/24 13:24 IMPRESSION: Focal acute infarct at the left insular cortex. Moderate to advanced chronic microvascular ischemic change otherwise. Left maxillary sinus disease and bilateral mastoid effusions. Labs Labs: Laboratory Results - last 24 hr 08/07/24 08/07/24 08/08/24 16:48 19:58 05:50 WBC 5.3 RBC 2.75 L Hgb 8.8 L Hct 27.7 L MCV 100.7 H MCH 32.0 MCHC 31.8 L RDW 17.1 H Plt Count 326 MPV 9.4 Immature Gran % (Auto) 0.2 Neut % (Auto) 65.1 Lymph % (Auto) 19.7 [place] % (Auto) 8.9 H Eos % (Auto) 5.3 H Baso % (Auto) 0.8 Lymph # (Auto) 1.04 [place] # (Auto) 0.5 Eos # (Auto) 0.3 Baso # (Auto) 0.0 Abs Immat Gran (auto) 0.01 Absolute Neuts (auto) 3.4 Absolute Nucleated RBC 0.000 Nucleated RBC % 0.0 Sodium 136 L Potassium 4.1 Chloride 107 Carbon Dioxide 25 Anion Gap 4 BUN 20 H Creatinine 1.54 H Estim Creat Clear Calc 25 Estimated GFR 32 L Glucose 125 H POC Capillary Glucose 147 H 166 H Calcium 8.3 L Total Bilirubin 0.4 AST 25 ALT 11 Alkaline Phosphatase 79 Total Protein 5.0 L Albumin 2.9 L 08/08/24 08/08/24 07:54 11:34 WBC RBC Hgb Hct MCV MCH MCHC RDW Plt Count MPV Immature Gran % (Auto) Neut % (Auto) Lymph % (Auto) [place] % (Auto) Eos % (Auto) Baso % (Auto) Lymph # (Auto) [place] # (Auto) Eos # (Auto) Baso # (Auto) Abs Immat Gran (auto) Absolute Neuts (auto) Absolute Nucleated RBC Nucleated RBC % Sodium Potassium Chloride Carbon Dioxide Anion Gap BUN Creatinine Estim Creat Clear Calc Estimated GFR Glucose POC Capillary Glucose 124 H 164 H Calcium Total Bilirubin AST ALT Alkaline Phosphatase Total Protein Albumin Quality VTE Prophylaxis VTE prophylaxis: mechanical ordered and pharmacologic ordered
[2024-08-08 16:43] LABS: Glucose Point of Care 133 mg/dl (65-105)
[2024-08-08] MEDS: IMATINIB MESYLATE 400 MG 1 EACH PO (20:14)
[2024-08-08] MEDS: ATORVASTATIN 40 MG TABLET PO (20:14)
[2024-08-08 23:38] LABS: Glucose Point of Care 160 mg/dl (65-105)
[2024-08-09] VITALS (11 sets, daily range): BP systolic 112–143; BP diastolic 56–65; PULSE 75–117; RESP 16–18; TEMP 36.2–36.7; O2SAT 93–98
[2024-08-09 06:02] LABS: Basophils Percent Auto 0.7 % (0.2-1.2); Eosinophils Absolute Auto 0.3 K/mm3 (0-0.3); Eosinophils Percent Auto 4.9 % (0-4.4); Hematocrit 27.8 % (37.0-47.0); Hemoglobin 8.9 g/dL (12.0-15.0); Immature Granulocyte Absolute 0.02 K/mm3 (0.00-0.031); Immature Granulocyte Percent A 0.4 % (0-0.5); Lymphocytes Absolute Auto 1.17 K/mm3 (0.9-3.2); Mean Corpuscular Hemoglobin 32.5 pg (26-34); Mean Corpuscular Volume 101.5 fl (80-100); Mean Platelet Volume 9.5 fl (7.4-10.4); Monocytes Absolute Auto 0.4 K/mm3 (0.1-0.6); Monocytes Percent Auto 7.9 % (2.6-8.5); Neutrophils Absolute Auto 3.6 K/mm3 (1.3-6.7); Neutrophils Percent Auto 65.1 % (45.5-73.1); Platelet Count Result 328 k/mm3 (150-375); Red Blood Count 2.74 M/mm3 (4.2-5.4); White Blood Count 5.6 K/mm3 (4.5-10.0)
[2024-08-09 06:17] LABS: Alanine Aminotransferase 12 U/L (6-35); Albumin Level 2.9 g/dL (3.5-5.1); Alkaline Phosphatase 85 U/L (38-126); Anion Gap 7 mmol/L (4-12); Aspartate Amino Transferase 27 U/L (14-36); Bilirubin,Total 0.4 mg/dL (0.2-1.3); Blood Urea Nitrogen 23 mg/dL (7-17); Calcium 8.3 mg/dL (8.4-10.2); Carbon Dioxide 26 mmol/L (22-30); Chloride 105 mmol/L (98-107); Estimated CRCL calculation 23 ml/min; Estimated Glomerular Filt Rate 30; Glucose 124 mg/dL (65-110); Potassium 4.2 mmol/L (3.4-5.0); Sodium 138 mmol/L (137-145)
[2024-08-09 07:56] LABS: Glucose Point of Care 146 mg/dl (65-105)
[2024-08-09] MEDS: lisinopriL 10 MG TABLET PO (08:45)
[2024-08-09] MEDS: CLOPIDOGREL BISULFATE 75 MG TABLET PO (08:45)
[2024-08-09] MEDS: FERROUS SULFATE 325 MG TABLET DR PO (08:45)
[2024-08-09] MEDS: CEPHALEXIN 250 MG CAPSULE PO ×2 (08:46→20:25)
[2024-08-09] MEDS: ASPIRIN 81 MG ENTERIC TABLET PO (08:46)
[2024-08-09] MEDS: CALCIUM ACETATE 667 MG TABLET PO (08:46)
[2024-08-09 11:38] LABS: Glucose Point of Care 153 mg/dl (65-105)
--- NOTE | 2024-08-09 13:45 | P.PNIM_ITS ---
Progress Note: A&P Assessment and Plan (1) CVA (cerebral vascular accident): Code(s): I63.9 - Cerebral infarction, unspecified Status: Acute Assessment and Plan: Patient presents to the hospital for weakness and slurred speech. Patient on asa 325 and simvastatin prior to admission. She is unsure why she was only on aspirin given her history, she denies recent falls or GI bleeds. - Lipid panel unremarkable - Head CT: 1. Small old bilateral cerebellar infarcts. No acute intracranial process. 2. Age-related changes including mild to moderate diffuse volume loss and moderate scattered white matter hypoattenuation consistent with chronic small vessel ischemic. 3. Likely chronic sinus disease. - Head/neck CTA: 1. Small amount of atherosclerotic plaque with 0% stenosis of the right and left carotid bulbs relative to normal distal artery lumen diameter (NASCET criteria). 2. Unremarkable cerebral CT angiogram with no aneurysm, thrombosis or hemodynamically significant stenosis. - MRI Focal acute infarct at the left insular cortex. Moderate to advanced chronic microvascular ischemic change otherwise. Left maxillary sinus disease and bilateral mastoid effusions. - Echo LVEF 65-70% with grade I diastolic dysfunction. Agitated saline injection with vasalva maneuver opacified right side cardiac chambers with significant shunt of bubbles to left side cardiac chambers suggestive of patent foramen ovale. - EEG ordered - Start high-intensity statin - Started on dual antiplatelet therapy: 81 mg asa and 75 mg plavix - Telemetry monitoring - Monitor blood glucose - Monitor CBC, CMP, magnesium, troponin, and lipid profile - Monitor blood pressure, allow for permissive hypertension. - PT/OT eval and treat Recommending placement, care coordination following - Speech eval, patient noted to be pocketing food No intervention required - Neurology consulted, appreciate assistance and recommendations - Cardiology consulted for PARTH on echo, appreciate recommendations Doubt this is a cause of her TIA or stroke history and therefore no plan for closure No further cardiac workup in hospital , have her follow up in 1-2 weeks to obtain 30 day event monitor to check for PAF (2) Essential (primary) hypertension: Code(s): I10 - Essential (primary) hypertension Status: Acute Assessment and Plan: Chronic, currently holding blood pressure medications given elevated BUN/Cr with unknown baseline - Continue lisinopril 10 mg daily - Blood pressures remain stable, continue to monitor 08/09- kidney function got slightly worse will hold lisinopril for now (3) UTI (urinary tract infection): Code(s): N39.0 - Urinary tract infection, site not specified Status: Acute Assessment and Plan: Given patients age and that she was having neurological symptoms - UA: clear appearance with negative nitrates, 1+ leukocytes, 11-20 WBC, 1+ bact eria, and few squamous cells present. - UC obtained on 08/03: klebsiella pneumoniae - No previous micro to be reviewed - started on Rocephin on 08/04, transitioned to keflex 08/06-08/09 -completing therapy today (4) NAHUN (acute kidney injury): Code(s): N17.9 - Acute kidney failure, unspecified Status: Acute Assessment and Plan: No known history of CKD, no prior creatinine level - BUN/Cr 29/1.58 with GFR 31 on admission - BUN/Cr 19/1.49 with GFR 33 on am labs - resumed lisinopril, continue to monitor - Hold metformin while in hospital - 1L NS bolus x1 at 75 ml/hr -08/09 kidney function slightly worsen- will hold lisinopril may need to avoid it as kidney function got worse with lisinopril may consider amlodipine in the future if needs antihypertensive (5) Cancer, metastatic to liver: Onset Date: 06/2014 Code(s): C78.7 - Secondary malignant neoplasm of liver and intrahepatic bile duct Status: Acute Assessment and Plan: Cervical cancer with metastasis to the liver s/p Whipple - Continue imatinib 400 mg daily, patient will need to bring this from home (6) Type 2 diabetes mellitus without complications: Code(s): E11.9 - Type 2 diabetes mellitus without complications Status: Acute Assessment and Plan: - hypoglycemia protocol - POC blood glucose ACHS - home medication - metformin 2000 mg daily - correct regimen ordered - SSI TIDWM - A1C 6.2 reviewed-stable Time Spent With Patient Time with patient: 25 - 35 minutes Subjective Date/time seen: 08/09/24 13:45 Interval history: 88 year old female with past medical history of CVA, cervical cancer with metastasis to the liver s/p Whipple, DM, and hypertension presents to the hospital for weakness and slurred speech. Patient is pleasant lying comfortably in bed. Pt is progressing slowly- attempt to d/c to [facility]- not approved per insurance as doing too well . Care coordination is aware. Trouble with placement- insurance did not approve [facility] and unable to find SNF placement. Continue to work with care coordination. 08/08 doing well- no acute issues. eating, drinking well, no n/v. Moves all extremities, voice is clear- no worsening of her symptoms. Review of Systems Review of Systems: 12 systems were reviewed and are negativ e except for as per HPI. All systems reviewed & are unremarkable except as noted in HPI and below Exam Narrative: General: female in no acute respiratory distress who is nontoxic appearing, lying semi recumbent in bed. HEENT: Normocephalic. Atraumatic. Extraocular movement intact. Sclera clear and anicteric. No facial asymmetry. Chest: Lungs are clear to auscultation bilaterally. No wheezes or crackles. CV: Heart was regular rate and rhythm. S1-S2. No murmurs, gallops, or rubs. Abd: Abdomen was soft. Nontender. Nondistended. Positive bowel sounds. Ext: No clubbing, cyanosis, or edema. 2+ DP pulses bilaterally. Neuro: Patient is alert and oriented x4. Strength is 5/5 in both upper and lower extremities with pushes and pulls. No upper extremity drift. Speech is clear. Const: General: comfortable Objective Data Vital Signs Vital Signs: Vital Signs - 24 hr 08/08/24 14:00 08/08/24 16:00 08/08/24 20:00 Temperature 97.7 F Pulse Rate 90 87 81 Respiratory Rate 16 Blood Pressure 107/50 L Pulse Oximetry 95 Oxygen Delivery 08/08/24 20:35 08/09/24 00:00 08/09/24 04:00 Temperature 98.2 F Pulse Rate 73 75 91 Respiratory Rate 16 Blood Pressure 112/55 L Pulse Oximetry 98 Oxygen Delivery 08/09/24 06:19 08/09/24 08:00 08/09/24 08:50 Temperature 98.0 F Pulse Rate 93 78 Respiratory Rate 16 Blood Pressure 112/65 Pulse Oximetry 95 Oxygen Delivery Room Air 08/09/24 10:34 08/09/24 12:00 Temperature Pulse Rate 77 Respiratory Rate Blood Pressure Pulse Oximetry 93 Oxygen Delivery Room Air Intake/Output Intake/Output: Intake & Output 08/06/24 08/07/24 08/08/24 08/09/24 23:59 23:59 23:59 23:59 Intake Total 2009 1390 820 880 Output Total 1740 100 500 Balance 270 1290 320 880 Meds/Results Medications: Active Medications Generic Name Dose Route Start Last Admin Trade Name Nachoq PRN Reason Stop Dose Admin Acetaminophen 650 mg 08/03/24 15:08 08/06/24 20:25 Acetaminophen 325 Mg Tablet PO 650 mg Q4H PRN Administration Mild Pain (1-3) or Fever Aspirin 81 mg 08/07/24 09:00 08/09/24 08:46 Aspirin 81 Mg Enteric Tablet PO 81 mg QAM JESSICA Administration Atorvastatin Calcium 40 mg 08/04/24 21:00 08/08/24 20:14 Atorvastatin 40 Mg Tablet PO 40 mg HS JESSICA Administration Calcium Acetate 667 mg 08/04/24 09:00 08/09/24 08:46 Calcium Acetate 667 Mg Tablet PO 667 mg DAILY JESSICA Administration Cephalexin HCl 250 mg 08/06/24 13:15 08/09/24 08:46 Cephalexin 250 Mg Capsule PO 08/09/24 21:01 250 mg Q12HR JESSICA Administration Clopidogrel Bisulfate 75 mg 08/05/24 09:00 08/09/24 08:45 Clopidogrel Bisulfate 75 Mg Tablet PO 75 mg QAM JESSICA Administration Dextrose 12.5 gm 08/04/24 08:10 Dextrose 50% 25 Gm/50 Ml Syringe IV PUSH PRN PRN Hypoglycemia Protocol Ferrous Sulfate 325 mg 08/04/24 09:00 08/09/24 08:45 Ferrous Sulfate [address] PO 325 mg DAILY JESSICA Administration Glucagon 1 mg 08/04/24 08:10 Glucagon For Inj 1 Mg Vial IM PRN PRN Hypoglycemia Protocol Glucose 15 gm 08/04/24 08:10 Glucose Oral Gel 15 Gm Of Glucse In 37.5 Gm Tube PO PRN PRN Hypoglycemia Protocol Dextrose 1,000 mls @ 100 mls/hr 08/04/24 08:10 Dextrose 5% 1,000 Ml IVPB PRN PRN Hypoglycemia Protocol Insulin Aspart 2 - 5 units 08/04/24 08:00 08/09/24 11:37 Insulin Aspart (*Bkc) 100 Units/Ml SUB-Q Not Given TIDWM JESSICA Protocol Lisinopril 10 mg 08/05/24 09:00 08/09/24 08:45 Lisinopril 10 Mg Tablet PO 10 mg DAILY JESSICA Administration Non-Formulary ( 1 each 08/03/24 21:00 08/08/24 20:14 Imatinib Mesylate PO 09/02/24 20:59 1 each 400 Mg Oral Tablet) HS JESSICA Administration Radiology Results: ITS Impressions Head CT 08/03/24 11:36 IMPRESSION: 1. Small old bilateral cerebellar infarcts. No acute intracranial process. 2. Age-related changes including mild to moderate diffuse volume loss and moderate scattered white matter hypoattenuation consistent with chronic small vessel ischemic. 3. Likely chronic sinus disease. Chest X-Ray 08/03/24 11:50 IMPRESSION: 1. Mild opacities at the left lung base along the mildly elevated left hemidiaphragm and favor atelectasis over pneumonia. Head/Neck CTA 08/03/24 13:38 IMPRESSION: 1. Small amount of atherosclerotic plaque with 0% stenosis of the right and left carotid bulbs relative to normal distal artery lumen diameter (NASCET criteria). 2. Unremarkable cerebral CT angiogram with no aneurysm, thrombosis or hemodynamically significant stenosis. Brain MRI 08/04/24 13:24 IMPRESSION: Focal acute infarct at the left insular cortex. Moderate to advanced chronic microvascular ischemic change otherwise. Left maxillary sinus disease and bilateral mastoid effusions. Labs Labs: Laboratory Results - last 24 hr 08/08/24 08/08/24 08/09/24 16:37 20:29 05:29 WBC 5.6 RBC 2.74 L Hgb 8.9 L Hct 27.8 L MCV 101.5 H MCH 32.5 MCHC 32.0 RDW 17.0 H Plt Count 328 MPV 9.5 Immature Gran % (Auto) 0.4 Neut % (Auto) 65.1 Lymph % (Auto) 21.0 [place] % (Auto) 7.9 Eos % (Auto) 4.9 H Baso % (Auto) 0.7 Lymph # (Auto) 1.17 [place] # (Auto) 0.4 Eos # (Auto) 0.3 Baso # (Auto) 0.0 Abs Immat Gran (auto) 0.02 Absolute Neuts (auto) 3.6 Absolute Nucleated RBC 0.000 Nucleated RBC % 0.0 Sodium 138 Potassium 4.2 Chloride 105 Carbon Dioxide 26 Anion Gap 7 BUN 23 H Creatinine 1.63 H Estim Creat Clear Calc 23 Estimated GFR 30 L Glucose 124 H POC Capillary Glucose 133 H 160 H Calcium 8.3 L Total Bilirubin 0.4 AST 27 ALT 12 Alkaline Phosphatase 85 Total Protein 5.0 L Albumin 2.9 L 08/09/24 08/09/24 07:52 11:34 WBC RBC Hgb Hct MCV MCH MCHC RDW Plt Count MPV Immature Gran % (Auto) Neut % (Auto) Lymph % (Auto) [place] % (Auto) Eos % (Auto) Baso % (Auto) Lymph # (Auto) [place] # (Auto) Eos # (Auto) Baso # (Auto) Abs Immat Gran (auto) Absolute Neuts (auto) Absolute Nucleated RBC Nucleated RBC % Sodium Potassium Chloride Carbon Dioxide Anion Gap BUN Creatinine Estim Creat Clear Calc Estimated GFR Glucose POC Capillary Glucose 146 H 153 H Calcium Total Bilirubin AST ALT Alkaline Phosphatase Total Protein Albumin Quality VTE Prophylaxis VTE prophylaxis: mechanical ordered and pharmacologic ordered
[2024-08-09 16:59] LABS: Glucose Point of Care 141 mg/dl (65-105)
[2024-08-09] MEDS: ATORVASTATIN 40 MG TABLET PO (20:25)
[2024-08-09] MEDS: IMATINIB MESYLATE 400 MG 1 EACH PO (20:25)
[2024-08-09] MEDS: ACETAMINOPHEN 325 MG TABLET 650 MG PO (22:29)
[2024-08-09 23:32] LABS: Glucose Point of Care 159 mg/dl (65-105)
[2024-08-10] VITALS: PULSE 68
[2024-08-10 04:00] VITALS: PULSE 79
[2024-08-10 06:00] VITALS: BP 137/59; PULSE 85; RESP 16; TEMP 36.1; O2SAT 98
[2024-08-10 08:00] VITALS: PULSE 81
--- NOTE | 2024-08-10 08:23 | P.PNIM_ITS ---
Progress Note: A&P Assessment and Plan (1) CVA (cerebral vascular accident): Code(s): I63.9 - Cerebral infarction, unspecified Status: Acute Assessment and Plan: Patient presents to the hospital for weakness and slurred speech. Patient on asa 325 and simvastatin prior to admission. She is unsure why she was only on aspirin given her history, she denies recent falls or GI bleeds. - Lipid panel unremarkable - Head CT: 1. Small old bilateral cerebellar infarcts. No acute intracranial process. 2. Age-related changes including mild to moderate diffuse volume loss and moderate scattered white matter hypoattenuation consistent with chronic small vessel ischemic. 3. Likely chronic sinus disease. - Head/neck CTA: 1. Small amount of atherosclerotic plaque with 0% stenosis of the right and left carotid bulbs relative to normal distal artery lumen diameter (NASCET criteria). 2. Unremarkable cerebral CT angiogram with no aneurysm, thrombosis or hemodynamically significant stenosis. - MRI Focal acute infarct at the left insular cortex. Moderate to advanced chronic microvascular ischemic change otherwise. Left maxillary sinus disease and bilateral mastoid effusions. - Echo LVEF 65-70% with grade I diastolic dysfunction. Agitated saline injection with vasalva maneuver opacified right side cardiac chambers with significant shunt of bubbles to left side cardiac chambers suggestive of patent foramen ovale. - EEG ordered - Start high-intensity statin - Started on dual antiplatelet therapy: 81 mg asa and 75 mg plavix - Telemetry monitoring - Monitor blood glucose - Monitor CBC, CMP, magnesium, troponin, and lipid profile - Monitor blood pressure, allow for permissive hypertension. - PT/OT eval and treat Recommending placement, care coordination following - Speech eval, patient noted to be pocketing food No intervention required - Neurology consulted, appreciate assistance and recommendations - Cardiology consulted for PARTH on echo, appreciate recommendations Doubt this is a cause of her TIA or stroke history and therefore no plan for closure No further cardiac workup in hospital , have her follow up in 1-2 weeks to obtain 30 day event monitor to check for PAF No new neuro sympotms- pt had been stable and working with pt/ot for rehab (2) Essential (primary) hypertension: Code(s): I10 - Essential (primary) hypertension Status: Acute Assessment and Plan: Chronic, currently holding blood pressure medications given elevated BUN/Cr with unknown baseline - Continue lisinopril 10 mg daily - Blood pressures remain stable, continue to monitor 08/09- kidney function got slightly worse will hold lisinopril for now trend kidney function and watch BP closely (3) UTI (urinary tract infection): Code(s): N39.0 - Urinary tract infection, site not specified Status: Acute Assessment and Plan: Given patients age and that she was having neurological symptoms - UA: clear appearance with negative nitrates, 1+ leukocytes, 11-20 WBC, 1+ bacteria, and few squamous cells present. - UC obtained on 08/03: klebsiella pneumoniae - No previous micro to be reviewed - started on Rocephin on 08/04, transitioned to keflex 08/06-08/09 -completing therapy today (4) NAHUN (acute kidney injury): Code(s): N17.9 - Acute kidney failure, unspecified Status: Acute Assessment and Plan: No known history of CKD, no prior creatinine level - BUN/Cr 29/1.58 with GFR 31 on admission - BUN/Cr 19/1.49 with GFR 33 on am labs - resumed lisinopril, continue to monitor - Hold metformin while in hospital - 1L NS bolus x1 at 75 ml/hr -08/09 kidney function slightly worsen- will hold lisinopril may need to avoid it as kidney function got worse with lisinopril may consider amlodipine in the future if needs antihypertensive (5) Cancer, metastatic to liver: Onset Date: 06/2014 Code(s): C78.7 - Secondary malignant neoplasm of liver and intrahepatic bile duct Status: Acute Assessment and Plan: Cervical cancer with metastasis to the liver s/p Whipple - Continue imatinib 400 mg daily, patient will need to bring this from home (6) Type 2 diabetes mellitus without complications: Code(s): E11.9 - Type 2 diabetes mellitus without complications Status: Acute Assessment and Plan: - hypoglycemia protocol - POC blood glucose ACHS - home medication - metformin 2000 mg daily - correct regimen ordered - SSI TIDWM - A1C 6.2 reviewed-stable Time Spent With Patient Time with patient: 25 - 35 minutes Subjective Date/time seen: 08/10/24 08:23 Interval history: 88 year old female with past medical history of CVA, cervical cancer with metastasis to the liver s/p Whipple, DM, and hypertension presents to the hospital for weakness and slurred speech. Patient is pleasant lying comfortably in bed. Pt is progressing slowly- attempt to d/c to [facility]- not approved per insurance as doing too well . Care coordination is aware. Trouble with placement- insurance did not approve [facility] and unable to find SNF placement. Continue to work with care coordination. 08/08 doing well- no acute issues. eating, drinking well, no n/v. Moves all extremities, voice is clear- no worsening of her symptoms. 08/09- no acute events. waiting for placement. 08/10- care coordination notes reviewed. [facility] ([facility]) will not have answered until monday. continue to work with PT/OT. PT is doing well- reports BP yesterday, eating and drinking ok, no nausea. Review of Systems Review of Systems: 12 systems were reviewed and are negativ e except for as per HPI. All systems reviewed & are unremarkable except as noted in HPI and below Exam Narrative: General: female in no acute respiratory distress who is nontoxic appearing, lying semi recumbent in bed. HEENT: Normocephalic. Atraumatic. Extraocular movement intact. Sclera clear and anicteric. No facial asymmetry. Chest: Lungs are clear to auscultation bilaterally. No wheezes or crackles. CV: Heart was regular rate and rhythm. S1-S2. No murmurs, gallops, or rubs. Abd: Abdomen was soft. Nontender. Nondistended. Positive bowel sounds. Ext: No clubbing, cyanosis, or edema. 2+ DP pulses bilaterally. Neuro: Patient is alert and oriented x4. Strength is 5/5 in both upper and lower extremities with pushes and pulls. No upper extremity drift. Speech is clear. Const: General: comfortable Objective Data Vital Signs Vital Signs: Vital Signs - 24 hr 08/09/24 08:50 08/09/24 10:34 08/09/24 12:00 Temperature Pulse Rate 77 Respiratory Rate Blood Pressure Pulse Oximetry 93 Oxygen Delivery Room Air Room Air 08/09/24 14:00 08/09/24 16:00 08/09/24 19:36 Temperature 97.2 F L Pulse Rate 80 117 H 117 H Respiratory Rate 18 18 Blood Pressure 131/56 L Pulse Oximetry 97 97 Oxygen Delivery Room Air 08/09/24 19:46 08/09/24 20:00 08/10/24 00:00 Temperature 97.3 F L Pulse Rate 76 79 68 Respiratory Rate 16 Blood Pressure 143/63 H Pulse Oximetry 98 Oxygen Delivery 08/10/24 04:00 08/10/24 06:00 Temperature 97.0 F L Pulse Rate 79 85 Respiratory Rate 16 Blood Pressure 137/59 L Pulse Oximetry 98 Oxygen Delivery Intake/Output Intake/Output: Intake & Output 08/07/24 08/08/24 08/09/24 08/10/24 23:59 23:59 23:59 23:59 Intake Total 0039 031 1358 250 Output Total 100 500 Balance 2404 999 2355 250 Meds/Results Medications: Active Medications Generic Name Dose Route Start Last Admin Trade Name Freq PRN Reason Stop Dose Admin Acetaminophen 650 mg 08/03/24 15:08 08/09/24 22:29 Acetaminophen 325 Mg Tablet PO 650 mg Q4H PRN Administration Mild Pain (1-3) or Fever Aspirin 81 mg 08/07/24 09:00 08/09/24 08:46 Aspirin 81 Mg Enteric Tablet PO 81 mg QAM JESSICA Administration Atorvastatin Calcium 40 mg 08/04/24 21:00 08/09/24 20:25 Atorvastatin 40 Mg Tablet PO 40 mg HS JESSICA Administration Calcium Acetate 667 mg 08/04/24 09:00 08/09/24 08:46 Calcium Acetate 667 Mg Tablet PO 667 mg DAILY JESSICA Administration Clopidogrel Bisulfate 75 mg 08/05/24 09:00 08/09/24 08:45 Clopidogrel Bisulfate 75 Mg Tablet PO 75 mg QAM JESSICA Administration Dextrose 12.5 gm 08/04/24 08:10 Dextrose 50% 25 Gm/50 Ml Syringe IV PUSH PRN PRN Hypoglycemia Protocol Ferrous Sulfate 325 mg 08/04/24 09:00 08/09/24 08:45 Ferrous Sulfate [address] PO 325 mg DAILY JESSICA Administration Glucagon 1 mg 08/04/24 08:10 Glucagon For Inj 1 Mg Vial IM PRN PRN Hypoglycemia Protocol Glucose 15 gm 08/04/24 08:10 Glucose Oral Gel 15 Gm Of Glucse In 37.5 Gm Tube PO PRN PRN Hypoglycemia Protocol Dextrose 1,000 mls @ 100 mls/hr 08/04/24 08:10 Dextrose 5% 1,000 Ml IVPB PRN PRN Hypoglycemia Protocol Insulin Aspart 2 - 5 units 08/04/24 08:00 08/09/24 17:33 Insulin Aspart (*Bkc) 100 Units/Ml SUB-Q Not Given TIDWM JESSICA Protocol Lisinopril 10 mg 08/05/24 09:00 08/09/24 08:45 Lisinopril 10 Mg Tablet PO 10 mg DAILY JESSICA Administration Non-Formulary ( 1 each 08/03/24 21:00 08/09/24 20:25 Imatinib Mesylate PO 09/02/24 20:59 1 each 400 Mg Oral Tablet) HS JESSICA Administration Radiology Results: ITS Impressions Head CT 08/03/24 11:36 IMPRESSION: 1. Small old bilateral cerebellar infarcts. No acute intracranial process. 2. Age-related changes including mild to moderate diffuse volume loss and moderate scattered white matter hypoattenuation consistent with chronic small vessel ischemic. 3. Likely chronic sinus disease. Chest X-Ray 08/03/24 11:50 IMPRESSION: 1. Mild opacities at the left lung base along the mildly elevated left hemidiaphragm and favor atelectasis over pneumonia. Head/Neck CTA 08/03/24 13:38 IMPRESSION: 1. Small amount of atherosclerotic plaque with 0% stenosis of the right and left carotid bulbs relative to normal distal artery lumen diameter (NASCET criteria). 2. Unremarkable cerebral CT angiogram with no aneurysm, thrombosis or hemodynamically significant stenosis. Brain MRI 08/04/24 13:24 IMPRESSION: Focal acute infarct at the left insular cortex. Moderate to advanced chronic microvascular ischemic change otherwise. Left maxillary sinus disease and bilateral mastoid effusions. Labs Labs: Laboratory Results - last 24 hr 08/09/24 08/09/24 08/09/24 11:34 16:50 19:42 POC Capillary Glucose 153 H 141 H 159 H Quality VTE Prophylaxis VTE prophylaxis: mechanical ordered and pharmacologic ordered
[2024-08-10 08:24] LABS: Glucose Point of Care 145 mg/dl (65-105)
[2024-08-10] MEDS: FERROUS SULFATE 325 MG TABLET DR PO (08:47)
[2024-08-10] MEDS: CLOPIDOGREL BISULFATE 75 MG TABLET PO (08:47)
[2024-08-10] MEDS: CALCIUM ACETATE 667 MG TABLET PO (08:47)
[2024-08-10] MEDS: ASPIRIN 81 MG ENTERIC TABLET PO (08:47)
--- NOTE | 2024-08-10 11:39 | P.DS_ITS ---
DS: Admitting Diagnosis Discharge Date 08/10 Admitting Diagnosis stroke like symptoms DS: Discharge Diagnosis Discharge Diagnosis (1) CVA (cerebral vascular accident): Code(s): I63.9 - Cerebral infarction, unspecified Status: Acute (2) Essential (primary) hypertension: Code(s): I10 - Essential (primary) hypertension Status: Acute (3) UTI (urinary tract infection): Code(s): N39.0 - Urinary tract infection, site not specified Status: Acute (4) NAHUN (acute kidney injury): Code(s): N17.9 - Acute kidney failure, unspecified Status: Acute (5) Cancer, metastatic to liver: Onset Date: 06/2014 Code(s): C78.7 - Secondary malignant neoplasm of liver and intrahepatic bile duct Status: Acute (6) Type 2 diabetes mellitus without complications: Code(s): E11.9 - Type 2 diabetes mellitus without complications Status: Acute DS: Summary Hospital Course Hospital Course: 88 year old female with past medical history of CVA, cervical cancer with metastasis to the liver s/p Whipple, DM, and hypertension presents to the hospital for weakness and slurred speech. Several issues were addressed: # CVA Patient presents to the hospital for weakness and slurred speech. Patient on asa 325 and simvastatin prior to admission. no h/o GI bleed - Lipid panel unremarkable - Head CT: 1. Small old bilateral cerebellar infarcts. No acute intracranial process. 2. Age-related changes including mild to moderate diffuse volume loss and moderate scattered white matter hypoattenuation consistent with chronic small vessel ischemic. 3. Likely chronic sinus disease. - Head/neck CTA: 1. Small amount of atherosclerotic plaque with 0% stenosis of the right and left carotid bulbs relative to normal distal artery lumen diameter (NASCET criteria). 2. Unremarkable cerebral CT angiogram with no aneurysm, thrombosis or hemodynamically significant stenosis. - MRI Focal acute infarct at the left insular cortex. Moderate to advanced chronic microvascular ischemic change otherwise. Left maxillary sinus disease and bilateral mastoid effusions. - Echo LVEF 65-70% with grade I diastolic dysfunction. Agitated saline injection with vasalva maneuver opacified right side cardiac chambers with significant shunt of bubbles to left side cardiac chambers suggestive of patent foramen ovale. - EEG ordered - Start high-intensity statin - Started on dual antiplatelet therapy: 81 mg asa and 75 mg plavix - - PT/OT eval and treat Recommending placement, care coordination following - Speech eval, patient noted to be pocketing food No intervention required - Neurology consulted - Cardiology consulted for PARTH on echo Doubt this is a cause of her TIA or stroke history and therefore no plan for closure No further cardiac workup in hospital , have her follow up in 1-2 weeks to obtain 30 day event monitor to check for PAF # HTN Continue lisinopril 10 mg daily - Blood pressures remain stable, continue to monitor 08/09- kidney function got slightly worse will hold lisinopril for now # UTI Given patients age and that she was having neurological symptoms - UA: clear appearance with negative nitrates, 1+ leukocytes, 11-20 WBC, 1+ bacteria, and few squamous cells present. - UC obtained on 08/03: klebsiella pneumoniae - No previous micro to be reviewed - started on Rocephin on 08/04, transitioned to keflex 08/06-08/09 -completing therapy # NAHUN No known history of CKD, no prior creatinine level - BUN/Cr 29/1.58 with GFR 31 on admission - BUN/Cr 19/1.49 with GFR 33 on am labs - resumed lisinopril, continue to monitor - Hold metformin while in hospital - 1L NS bolus x1 at 75 ml/hr -08/09 kidney function slightly worsen- will hold lisinopril may need to avoid it as kidney function got worse with lisinopril may consider amlodipine in the future if needs antihypertensive need to recheck kidney function within the next few days stay hydrated and avoid nephrotoxic drugs # t2dm hypoglycemia protocol - POC blood glucose ACHS - home medication - metformin 2000 mg daily - correct regimen ordered - [facility] TIDWM - A1C 6.2 reviewed-stable Status at Discharge Functional status at discharge: uses cane/walker Overall status at discharge: patient is progressing back to baseline Time Spent with Patient Time attestation: Total time spent providing and/or coordinating discharge services: Time spent: Greater than 30 minutes Exam Narrative: General: female in no acute respiratory distress who is nontoxic appearing, l dimas semi recumbent in bed. HEENT: Normocephalic. Atraumatic. Extraocular movement intact. Sclera clear and anicteric. No facial asymmetry. Chest: Lungs are clear to auscultation bilaterally. No wheezes or crackles. CV: Heart was regular rate and rhythm. S1-S2. No murmurs, gallops, or rubs. Abd: Abdomen was soft. Nontender. Nondistended. Positive bowel sounds. Ext: No clubbing, cyanosis, or edema. 2+ DP pulses bilaterally. Neuro: Patient is alert and oriented x4. Strength is 5/5 in both upper and lower extremities with pushes and pulls. No upper extremity drift. Speech is clear. Const: General: comfortable DS: Data Data Completed and Pending Labs on day of discharge: Labs from last 24 hours 08/10/24 08/09/24 08/09/24 08:15 19:42 16:50 POC Capillary Glucose 145 H 159 H 141 H 08/09/24 11:34 POC Capillary Glucose 153 H Discharge Plan Discharge Attending physician on discharge: Cayetano Griffith Consulting providers: Abbe Greer; Ronnie Infante Discharging Clinician: Tata Leung Patient Disposition: [facility] Activity: november shower Diet: as tolerated and heart healthy Patient Instructions: Apixaban (By mouth), Hypercoagulation (GEN) Patient Language: Macedonian Follow-up/Referrals: Ronnie Infante DO [Physician] - 2 Weeks Abbe Greer MD [Physician] - 2 Weeks Manas Dupree MD [Primary Care Provider] - 2 Weeks Discharge Medications: New atorvastatin 40 mg Tablet 40 mg PO HS Qty: 90 0RF clopidogrel 75 mg Tablet 75 mg PO QAM Qty: 90 0RF aspirin 81 mg Tablet,Delayed Release (Dr/Ec) 81 mg PO QAM Qty: 90 0RF Continued imatinib 400 mg tablet 400 mg PO DAILY Patient Comments: 400 mg PO HS vitamin [id number] acid 500-400 mcg tablet 1 tablet PO DAILY Patient Comments: 500 mcg PO DAILY Rx Instructions: administer with a meal calcium acetate 668 mg (169 mg calcium) tablet 668 mg PO ONCE Patient Comments: 668 mg PO DAILY cholecalciferol (vitamin D3) [Vitamin D3] 10 mcg (400 unit) capsule 10 mcg PO DAILY Patient Comments: 10 mcg PO DAILY ferrous sulfate [Feosol] 325 mg (65 mg iron) tablet 325 mg PO DAILY Rx Instructions: 325 mg PO DAILY metformin 500 mg tablet extended release 24 hr 2,000 mg PO DAILY Qty: 360 3RF Patient Comments: 1000 mg PO BID Held lisinopril 10 mg tablet 10 mg PO DAILY Qty: 90 3RF Hold Instructions: Resume on 09/04/24. hold until kidney function lab repeated and ok to restart medication per PCP Patient Comments: 10 mg PO DAILY Discontinued aspirin 325 mg tablet 325 mg PO DAILY simvastatin 40 mg tablet 40 mg PO DAILY Qty: 90 3RF Patient Comments: 40 mg PO HS Other Ambulatory Orders: Basic Metabolic Panel (Routine) Timeframe: 1 Week Location: Determined by Patient Ordered By: Tata Leung Date of admission: 08/05/24 09:21 Primary Care Provider: Manas Dupree Admitting Provider: Rell Ross Attending physician on admission: Tanya Clemente Condition: Improved Quality VTE Prophylaxis VTE prophylaxis: mechanical ordered and pharmacologic ordered Hospitalist MIPS Heart Failure (Exclusion) Patient has history of Heart Transplant or Left Ventricular Assistive Device?: No IF YES, STOP HERE Heart Failure (Qualifier) Patient has current or prior documentation of LVEF less than or equal to 40%, or mod/servere depressed LVSF?: No IF NO, STOP HERE
[2024-08-10 12:00] VITALS: PULSE 80
[2024-08-10 12:01] LABS: Glucose Point of Care 180 mg/dl (65-105)
[2024-08-10 14:00] VITALS: BP 119/54; PULSE 76; RESP 17; TEMP 36.8; O2SAT 97
== END 2024-08-10 15:45 | DRG 65 ==
LOC: ANHED 15:08 → ANH2MED 16:15
PROVIDERS: Student in an Organized Health Care Education/Training Program; Admitting Provider Internal Medicine; Emergency Provider Emergency Medicine; PCP Family Medicine Adolescent Medicine; Visit Provider General Practice
DX: I63.9 Cerebral infarction, unspecified (principal); C78.7 Secondary malignant neoplasm of liver and intrahepatic bile duct; N17.9 Acute kidney failure, unspecified; N39.0 Urinary tract infection, site not specified; I69.354 Hemiplegia and hemiparesis following cerebral infarction affecting left non-dominant side; Q21.12 Patent foramen ovale; R47.81 Slurred speech; I10 Essential (primary) hypertension; D50.9 Iron deficiency anemia, unspecified; E11.9 Type 2 diabetes mellitus without complications; B96.1 Klebsiella pneumoniae [K. pneumoniae] as the cause of diseases classified elsewhere; Z85.41 Personal history of malignant neoplasm of cervix uteri
CPT/HCPCS: 36415; 70450; 70496; 70498; 70551; 71045; 80053; 80061; 81001; 82948; 83036; 84484; 85025; 85610; 85730; 87086; 87186; 92610; 93005; 93306; 96361; 96374; 96375; 97110; 97116; 97161; 97166; 97530; 97535; 99285; A9270; G0378; J0696; J7030; Q9967

== ENCOUNTER 2024-11-23 11:11 | Inpatient (IN) | payer MEDICARE, SELFPAY ==
[2024-11-23] VITALS (38 sets, daily range): BP systolic 83–168; BP diastolic 29–90; PULSE 64–119; RESP 14–33; TEMP 32.7–36.7; O2SAT 96–100; BMI 29.0
--- NOTE | ~2024-11-23 | CT_ITS ---
CT chest abdomen pelvis wo con Ordering provider: Sara Carrasco MD History: 88 years Female with . gen weakness, MARYSE, acute renal failure . Comparison: None. Technique: CT chest without IV contrast. CT abdomen and pelvis CT abdomen and pelvis without IV and w ithout oral contrast. Radiation reduction technique utilized.The dose-length product was 1276.48 mGy-cm FINDINGS: CHEST: --VISUALIZED THORACIC INLET: Normal. --MEDIASTINUM: Aorta/coronary arteries: Mild atheromatous disease. Heart/other: The heart is not enlarged. Trace of pericardial effusion. Lymph nodes: No mediastinal or hilar adenopathy. --LUNGS: Pleural base nodule in the right apical area is seen medially measuring 1.1 cm. 3 months fol low-up CT is advised. No pulmonary nodules or masses. No infiltrates or effusions. No pneumothorax. --MUSCULOSKELETAL: Soft tissues: The superficial soft tissues are normal. Bones: Age appropriate degenerative changes of the spine. No suspicious bony lytic or sclerotic lesio ns. ABDOMEN/PELVIS: --MUSCULOSKELETAL: Bones: Age appropriate degenerative changes of the spine. No suspicious bony lytic or sclerotic lesio ns. Levoscoliosis. Superficial soft tissues: Soft tissue swelling seen anteriorly with postoperative changes which may b e a hematoma. This area measures 2.5x 7.3 cm. clinical correlation and follow-up advised. Edema seen in the subcutaneous tissues which may indicate volume overload. Otherwise, The superficial soft tissu es are normal. --UPPER ABDOMINAL ORGANS: Liver: Normal. Gallbladder: Status post cholecystectomy. Spleen: Normal. Stomach/duodenum: Normal. Pancreas: Atrophic. Adrenals: Normal. Kidneys: Tiny cyst in the left kidney midpole. --PELVIC ORGANS: The bladder is underfilled.. No bladder stones. --BOWEL AND MESENTERY: Colon: Thickened wall of the rectum. Evaluation for proctitis is advised. Surrounding fat stranding a lso seen. Normal appendix. Small Bowel: Normal. No obstruction. Peritoneum/mesentery: No free air or free fluid. No mesenteric lymphadenopathy. --RETROPERITONEUM: Mild atheromatous disease of the abdominal aorta. No retroperitoneal lymphadenop athy. IMPRESSION: CHEST: 1. No acute cardiopulmonary pathology. 2. Nodule in the right apical area medially measuring 1.1 cm. 3 months follow-up CT is advised. ABDOMEN/PELVIS: 1. Soft tissue density with central hypodensity is seen in the anterior abdominal wall in the pelvis with postoperative changes suggestive of a hematoma. Clinical correlation and follow-up advised. 2. No evidence of appendicitis, diverticulitis or intestinal obstruction. Reviewed, dictated and finalized at location A. IMPRESSION: CHEST: 1. No acute cardiopulmonary pathology. 2. Nodule in the right apical area medially measuring 1.1 cm. 3 months follow- up CT is advised. ABDOMEN/PELVIS: 1. Soft tissue density with central hypodensity is seen in the anterior abdomi nal wall in the pelvis with postoperative changes suggestive of a hematoma. Cli nical correlation and follow-up advised. 2. No evidence of appendicitis, diverticulitis or intestinal obstruction.
--- NOTE | ~2024-11-23 | NM_ITS ---
NM lung vent and perfusion Ordering provider: Sara Carrasco MD History: . c/f PE; + dimer; no contrast d/t renal failure large pt dif . Comparison: Chest x-ray performed Technique: A nuclear perfusion scan was performed utilizing 5 mCi of technetium 99m MAA injected int ravenously. Multiple projections of the lungs were subsequently obtained. FINDINGS: No defects. IMPRESSION: Normal nuclear perfusion scan. No evidence for pulmonary emboli. Reviewed, dictated and finalized at location A.
--- NOTE | ~2024-11-23 | CT_ITS ---
CT brain wo con Ordering provider: Sara Carrasco MD History: 88 years Female with . generalized weakness, headache . Comparison: August 03, 2024 Technique: CT of the head without contrast. Radiation reduction technique utilized. The dose-length product was 681 mGy-cm. FINDINGS: BRAIN PARENCHYMA AND CSF SPACES: Mild leukoaraiosis and diffuse cortical atrophy. Mild atheromatous d isease. No midline shift, mass effect or hemorrhage. The brain parenchyma and CSF spaces are otherwi se normal. VISUALIZED PARANASAL SINUSES: Left maxillary sinusitis with thickening of the wall suggestive of film coater robyn sinusitis. Mild right nasal septal deviation. MASTOIDS: Left mastoid air cells effusion. BONES: The bones appear intact. SOFT TISSUES: Visualized nasopharynx is normal. Superficial soft tissues are normal. IMPRESSION: No acute intracranial findings. Left maxillary sinusitis. Reviewed, dictated and finalized at location A.
--- NOTE | ~2024-11-23 | XR_ITS ---
XR chest 1V portable Ordering provider: Sara Carrasco MD History: 88 years Female with . check placement of PICC . Comparison: November 23, 2024 FINDINGS: MEDIASTINUM: The cardiac silhouette is moderately enlarged. Right PICC line with the tip overlying lombardi perior vena cava. LUNGS: No infiltrates, effusions or pneumothorax. OTHER: No free air under the diaphragm. IMPRESSION: No acute cardiopulmonary pathology. PICC line with the tip overlying superior vena cava. Reviewed, dictated and finalized at location A.
--- NOTE | ~2024-11-23 | XR_ITS ---
EXAMINATION: XR chest 1V portable DATE: 11/23/2024 13:23 INDICATION: Weakness TECHNIQUE: frontal view of the chest was obtained. COMPARISON: Chest radiograph dated 08/03/2024 FINDINGS: The lungs are clear with no focal airspace opacities, pulmonary edema, pleural effusion or pneumothor ax. The cardiomediastinal silhouette is normal. Thoracic dextroscoliosis. IMPRESSION: 1. No acute cardiopulmonary disease. Reviewed, dictated and finalized at location A.
--- OUTSIDE RECORDS SUMMARY | 2024-11-23 11:14 | XMS_ITS | Encounter Summary ---
Author Organization [facility] Address [address] [place] [address] Care Team Providers Care Well Testing Operator Name Role Phone Unavailable Primary Care Provider Unavailabl e Encounter Details Date Type Department Care Team (Late st Contact Info) Description 04/12/2023 Lab Requisition [facility] - DermPath Lab [address] [place] [address] Eliceo Moctezuma MD [facility] DERMATOLOGY [address] [place] [phone] Squamous cell carcinoma of skin of left upper limb, including shoulder Social History Tobacco Use Types Packs/Day Years Used Date Smoking Tobacco: Never Assessed Comments Unknown Sex and Gender Information Value Date Recorded Sex Assigned at Not on file Legal Sex Female 4:36 PM CDT Gender Identity Not on file Sexual Orientation [...] 12:00 AM CDT) Case Report Dermatopathology Report Case: [id number] Authorizing Provider: Eliceo Moctezuma MD Collected: 04/12/2023 12:00 AM Ordering Location: [facility] DermPath Lab Received: 04/13/2023 01:42 PM Pathologist: Chanell Ovalle MD Specimen: Skin, left distal radial dorsal forearm 5:31 PM CDT DERMATOPATHOLOGY LABORATORY Final Diagnosis Specimen A. SKIN, left distal radial dorsal forearm: DERMAL SCAR RESIDUAL SQUAMOUS CELL CARCINOMA NOT IDENTIFIED (L90.5) 3 5:31 PM CDT DERMATOPATHOLOGY LABORATORY Clinical History Squamous Cell Carcinoma. Check Margins 5:31 PM CDT DERMATOPATHOLOGY LABORATORY Gross Description Specimen A: Received is one formalin filled container labeled with the patient's name and designated left distal radial dorsal forearm. The specimen consists of a non-oriented ellipse of skin measuring [id number] mm. The 12 o'clock and 6 o'clock tips are submitted in cassette 1. The remainder of the ellipse is serially sectioned and submitted in cassette 2 . Jar 0. 5:31 PM CDT DERMATOPATHOLOGY LABORATORY Microscopic Description Specimen A. SKIN, left distal radial dorsal forearm: There are fibroblasts and collagen bundles oriented parallel to the skin surface. There are elongated blood vessels, some of which are oriented perpendicular to the skin surface. No residual squamous cell carcinoma is identified. 5:31 PM CDT DERMATOPATHOLOGY LABORATORY Disclaimer An external and internal positive and negative controls are appropriate for the histochemical, immunohistochemical and immunofluorescence stain(s) in this case (if any), except where stated explicitly. The performance characteristics of the stain(s) cited in this report were developed and its performance characteristic determined by the Dermatopathology Laboratory at [facility], directed by Dr. Gabi Miguel. These tests need not be, and therefore are not, approved by the [place] Food and Drug Administration. The tests are used for clinical purposes. Billing Codes Specimen Charges Stain Charges 96184 1 5:31 PM CDT DERMATOPATHOLOGY LABORATORY Embedded Images 5:31 PM CDT DERMATOPATHOLOGY LABORATORY Pathology/Cytolog y TISSUE SPECIMEN FROM SKIN / Unknown 04/12/2023 04/13/2023 1:42 PM CDT us Eliceo Moctezuma MD LAB - PATHOLOGY/CYTOLOGY ORDE BENIGNO Final Result DERMATOPATHOLOGY LABORATORY [facility] - Department of Dermatology [address], [address] [phone] documented in this encounter Visit Diagnoses Diagnosis Squamous cell carcinoma of skin of left upper limb, including shoulder Squamous cell carcinoma of skin of upper limb, including shoulder documented in this encounter
--- OUTSIDE RECORDS SUMMARY | 2024-11-23 11:14 | XMS_ITS ---
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 Lifetime Dose Tracking * Chemical Lifetime Dose Automatic Entry Manual Entr y DLP 8,254 mGycm 8,254 mGycm 0 mGycm Resolved Problems Problem Noted Date Diagnosed Date Resolved Date Recurrent incisional hernia with incarceration 06/22/2018 10/08/2020 Ventral hernia 01/17/2018 03/05/2018 Incisional hernia 11/22/2017 06/22/2018 History of intestinal obstruction 01/06/2016 03/05/2018
--- OUTSIDE RECORDS SUMMARY | 2024-11-23 11:14 | XMS_ITS | Continuity of Care Document ---
Author Organization [facility] Address [address] [place] [address] [place] [address] Phone Care Team Providers Care Air Analysis Technician Name Role Phone Blade Alford Unavailable Unavailable [...] Providers Copied on Encounter Office/outpat ient Visit, [facility], [address] [place] [address] [address], [place], [place], [id number], tel:[phone] [facility] No Information 0-201 0 Rocío Murguia. [address] , [address], [place], [address], [place]. tel:[phone] Office/outpat ient Visit, [facility], [address] [place] [address] [address], [place], [place], [address], [place] tel:[phone] [facility] No Information 4-200 9 Rocío Murguia. [address] , [address], [place], [address], [place]. tel:[phone] Office/outpat ient Visit, Est [facility], [address], [place], [place], [id number], [place] tel:[phone] [facility] No Information Oct-1 4-200 9 Rocío Murguia. [address] , [address], [place], [address], [place]. tel:[phone] [facility], [address], [place], [place], [id number], [place] tel:[phone] [facility] No Information Oct-0 5-200 9 Rocío Murguia. [address] , [address], [place], [address], [place]. tel:[phone] [facility], [address], [place], [place], [address], [place] tel:[phone] [facility] No Information Oct-2 0-200 8 Doiedwar Murguia. [address] , [address], [place], [address], [place]. tel:[phone] [facility]ly [facility], [address], [place], [place], [address], [place] tel:[phone] [facility] No Information Nov-0 1-200 7 [facility] [employer] . [address], [address], [place], [place], [address], [place]. tel:[phone] Referring Provider: Blade Wilkinson, [address], [place], [address]. tel:[phone] sulting Provider: Bety Eric, [address] [place], [place], [facility]. tel:[phone] [facility], [address], [place], [place], [address], [place] tel:[phone] [facility] No Information Oct-1 2-200 7 Doisy Edward. [address] , [address], [place], [address], [place]. tel:[phone] Family History Family Member Type Diagnosis Age At Onset No Information Payers Payer name Insurance type Covered green party ID Authoriza tion(s) No Information Social [...]
--- OUTSIDE RECORDS SUMMARY | 2024-11-23 11:14 | XMS_ITS | Clinical Summary ---
Author Organization [facility] Address [address] [place] [address] Care Team Providers Care Census Taker Name Role Phone Manas Dupree MD Primary Care Prov ider Tahir Hartman DO Unavailable [phone] Allergies Active Allergy Reactions Criticality Noted Date Comments Morphine Hcl Nausea only Low 10/02/2012 Medications ACCU-CHEK COMPACT PLUS TEST strip TEST DAILY DIRECTED 3 Active ACCU-CHEK SOFTCLIX LANCETS lancets TEST DAILY DIRECTED 3 018 Active calcium carbonate/vitamin D3 (CALCIUM 500 + D ORAL)Indications:lombardi pplement Take 1 tablet by mouth every morning [...] mouth every 6 (six) hours 30 tablet 019 Active docusate sodium (COLACE) 100 mg capsuleIndications: constipation Take 1 capsule (100 mg total) by mouth 2 (two) times a day 30 capsule 019 Active Additional Information Patient not taking.Reported on 10/07/2022 metFORMIN XR (GLUCOPHAGE XR) 500 mg 24 hr tablet TK 4 TS PO D 1 019 Active simvastatin (ZOCOR) 40 mg tablet Take by mouth Act anne cyanocobalamin (Vitamin B-12) 1,000 mcg tabletIndications:P revention of Vitamin B12 Deficiency Take 1 tablet (1,000 mcg total) by mouth daily 30 tablet 11 021 Active Additional Information Patient taking differently: 500 mcgoral Daily, Indications: Prevention of Vitamin B12 Deficiency, Reported on 04/05/2024 Lactobac no.41/Bifidobact no.7 (PROBIOTIC-10 ORAL) Take by mouth Active nitrofurantoin monohydrate (MACROBID) 100 mg capsule TAKE 1 CAPSULE BY MOUTH EVERY 12 HOURS FOR 5 DAYS 022 Active mupirocin (BACTROBAN) 2 % ointment APPLY TOPICALLY TO RASH TWICE DAILY 023 Active predniSONE (DELTASONE) 10 mg tablet 023 Active lisinopriL (PRINIVIL,ZESTRIL) 10 mg tablet Take 1 tablet (10 mg total) by mouth daily 023 Active cetirizine (ZyrTEC) 10 mg tablet Take 1 tablet (10 mg total) by mouth daily 023 Active clobetasoL (TEMOVATE) 0.05 % cream 023 Active hydrOXYzine (ATARAX) 25 mg tablet Take 1 tablet (25 mg total) by mouth nightly 023 Active imatinib (GLEEVEC) 400 mg tabletIndications:M alignant gastrointestinal stromal tumor (GIST) of other site (HCC) Take 1 tablet (400 mg total) by mouth daily Take with a large glass of water. You may dissolve in water or apple juice to make swallowing easier. Should be taken with a meal. Do not take on an empty stomach. 30 tablet 5 025 2024 Active imatinib (GLEEVEC) 400 mg tabletIndications:M alignant gastrointestinal stromal tumor (GIST) of other site (HCC) Take 1 tablet (400 mg total) by mouth daily Take with a large glass of water. You may dissolve in water or apple juice to make swallowing easier. Should be taken with a meal. Do not take on an empty stomach. 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 Resolved Problems Problem Noted Date Diagnosed Date Resolved Date Recurrent incisional hernia with incarceration 06/22/2018 10/08/2020 Ventral hernia 01/17/2018 03/05/2018 Incisional hernia 11/22/2017 06/22/2018 History of intestinal obstruction 01/06/2016 03/05/2018 Encounters Date Type Department Care Team Description 11/19/2024 Orders Only [facility] [address] [place] [id number] Tahir Hartman, 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) 10/22/2024 10:10 AM CDT - 10/22/2024 11:59 PM CDT Hospital Encounter [address] [address] Discharge Disposition: Discharge to home or self care 10/22/2024 10:10 AM CDT - 10/22/2024 11:59 PM CDT Hospital Encounter [address] [address] Discharge Disposition: Discharge to home or self care from Last 3 Months Immunizations Immunization Administration Dates Next Due Influenza, Unspecified 05/09/2022,05/07/2020 Pfizer SARS-CoV-2 Monovalent Vaccination (12+ Yrs) PURPLE 09/21/2020,08/30/2020 Surgical History Surgery Date Site/Laterality Comments BIOPSY LIVER 12/11/2015 N/A TOTAL ABDOMINAL HYSTERECTOMY 07/10/1995 - 07/09/1996 PANCREATICODUODENECTOMY 07/10/2014 - 07/09/2015 HERNIA REPAIR 07/10/1997 - 07/09/1998 open COLONOSCOPY CHOLECYSTECTOMY Medical History Medical History Date Comments GIST, malignant (HCC) 12/18/2015 Small bowel obstruction (HCC) 01/17/2018 Incisional hernia 11/22/2017 Liver disease stage 4 [...] on file Legal Sex Female 3:10 AM FLORAL DECORATOR Gender Identity Not on file Sexual Orientation Not on file Occupation Industry Job Start Date Job End Date Retired Not on file Not on file Not on file Obstetrics History Last Filed Vital Signs Vital Sign Reading Time Taken Comments Blood Pressure 142/83 04/05/2024 11:26 AM CDT Pulse 86 04/05/2024 11:26 AM CDT Temperature 36.7 C (98 F) 04/05/2024 11:26 AM CDT Respiratory Rate 16 [...] - Tdap) 1946 Hepatitis B Screening 12/25/1955 Pneumococcal vaccine 65+ (1 of 1 - PCV) 12/25/1987 Zoster Vaccine (1 of 2) 12/25/1987 Well Visit 65+ 2002 Covid-19 Vaccine (4 - season) 2024 06/20/2021, 09/21/2020, 08/30/2020 Influenza Vaccine (Season Ended) 2025 05/09/20, 05/07/2020 Medical Devices Implanted Type Area Satellite Communications Operator Device Identifier Shelf Expiration Date Model / Serial / Lot [employer]ol Inc/C R Bard [id number] Ventralight St Sepra Echo Ps 8x6in Monofilament Absorbable Low Latex Free - [id number] Implanted:Qty: 1 on 10/22/2018 by Sage Julien MD at [facility] N/A: Abdomen [employer]/C R Bard 05/06/2020 [id number] / / [id number] Procedures Procedure Name Priority Date/Time Associated Diagnosis Comments DIFFERENTIAL AUTO Routine 10/22/2024 10: 10 AM CDT CBC WITH AUTO DIFFERENTIAL Routine 10/22/2024 10:10 AM CDT from Last 3 Months Results * Differential, auto (10/22/2024 10:10 AM CDT) Neutrophil abs 5.01 1.50 - 6.50 K/cumm Imm gran abs 0.02 0.00 - 0.10 K/cumm [facility] Lymphocyte abs 1.24 0.80 - 3.30 K/cumm [facility] Monocyte abs 0.67 0.20 - 0.80 K/cumm [facility] Eosinophil abs 0.16 0.00 - 0.50 K/cumm [facility] Basophil abs 0.05 0.00 - 0.10 K/cumm [facility] Neutrophil pct 70.1 % [facility] Comment: Interpretive Data Percent cell count reference ranges are not reported, since discordance with absolute values may lead to misinterpretation of CBC data. Current Interpretive Data was last revised on 2017. Imm gran pct 0.3 % [facility] Comment: Interpretive Data Percent cell count reference ranges are not reported, since discordance with absolute values may lead to misinterpretation of CBC data. Current Interpretive Data was last revised on 2017. Lymphocyte pct 17.3 % [facility] Comment: Interpretive Data Percent cell count reference ranges are not reported, since discordance with absolute values may lead to misinterpretation of CBC data. Current Interpretive Data was last revised on 2017. Monocyte pct 9.4 % [facility] Comment: Interpretive Data Percent cell count reference ranges are not reported, since discordance with absolute values may lead to misinterpretation of CBC data. Current Interpretive Data was last revised on 2017. Eosinophil pct 2.2 % [facility] Comment: Interpretive Data Percent cell count reference ranges are not reported, since discordance with absolute values may lead to misinterpretation of CBC data. Current Interpretive Data was last revised on 2017. Basophil pct 0.7 % [facility] Comment: Interpretive Data Percent cell count reference ranges are not reported, since discordance with absolute values may lead to misinterpretation of CBC data. Current Interpretive Data was last revised on 2017. Blood 10/22/2024 10:1 0 AM CDT 10/22/2024 9:46 PM CDT Tahir Hartman DO LAB BLOOD ORDERABLES Final R esult [facility] [address] [place] [address] * (ABNORMAL) CBC with auto differential (10/22/2024 10:10 AM CDT) WBC 7.15 3.80 - 9.90 K/cumm Hgb 9.1(L) 11.9 - 15.5 g/dL [facility] Hct 30.5(L) 35.6 - 45.5 % [facility] Plt 310 150 - 400 K/cumm [facility] MPV 11.0 9.1 - 12.3 fL [facility] RBC 2.78(L) 3.90 - 5.20 M/cumm [facility] MCV 109.7(H) 81.3 - 96.4 fL [facility] MCH 32.7 27.1 - 33.3 pg [facility] MCHC 29.8(L) 32.3 - 35.7 g/dL [facility] RDW CV 14.2 11.1 - 14.9 % [facility] RDW SD 57.6(H) 35.7 - 48.1 fL [facility] NRBC abs 0.00 0.00 - 0.01 K/cumm [facility] Blood 10/22/2024 10:1 0 AM CDT 10/22/2024 9:46 PM CDT Tahir Hartman DO LAB BLOOD ORDERABLES Final R esult [facility] [id number] Department [place] [address] from Last 3 Months Insurance UHC MEDICARE ADVANTAGE [facility] Address: [place] [address] UHC MEDICARE ADVANTAGE [facility] Address: [address] [address] [place] [address] [facility] MEDICARE ADVANTAGE [facility] Address: [address] [address] [facility] MEDICARE ADVANTAGE [facility] Address: [place] [phone] Advance Directives For more information, please contact: [phone] * Full Code (Latest Code Status on File) Date Activated Date Inactivated Comments 10/22/2018 1:40 PM 10/24/2018 7:57 PM Care Teams Census Taker Relationship Specialty Start Date End Date Manas Dupree MD [address] [place] [address] PCP - General 10/12/16 Tahir Hartman DO [address] [place] [address] MEDICAL ONCOLOGY, [facility] [address] [place] [address] Medical Oncologist/Print Line Tailer Hematology and Oncology 09/24/21
--- OUTSIDE RECORDS SUMMARY | 2024-11-23 11:14 | XMS_ITS | Clinical Summary ---
Author Organization [facility] Address [address] [place] [address] Care Team Providers Care Radiology Teacher Name Role Phone Unavailable Primary Care Provider Unavailabl e Source Comments [facility],non-owned Affiliates and Associated Physician Practices is amultiple site organization consisting of ambulatory clinics and hospital sitesin [place], [place], [place] and [place]. This disclosure is being madepursuant to the Care Everywhere program and may not contain all information available regarding this patient. Last updated 18.[facility] [place] Social History Tobacco Use Types Packs/Day Years [...] - 1-dose 75+ series) 2012 COVID-19 VACCINE ( - 2023-2 5 season) 2024 DEPRESSION SCREENING 07/10/2024 MEDICARE AWV CALENDAR YEAR 2024 INFLUENZA VACCINE (Season Ended) 2025 HEPATITIS B VACCINE Aged Out No longe r eligible based on patient's age to complete this topic HIB VACCINE Aged Out No longer eligi ble based on patient's age to complete this topic HPV VACCINE Aged Out No longer eligi ble based on patient's age to complete this topic MENINGOCOCCAL (Group B) VACC INE SHARED DECISION-MAKING Aged Out No longer eligibl e based on patient's age to complete this topic MENINGOCOCCAL GROUPS A/C/Y/W VACCINE Aged Out No longer eligible b ased on patient's age to complete this topic Insurance
--- OUTSIDE RECORDS SUMMARY | 2024-11-23 11:14 | XMS_ITS | Referral Summary ---
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) 10/22/2024 10:10 AM CDT - 10/22/2024 11:59 PM CDT Hospital Encounter [address] [address] Discharge Disposition: Discharge to home or self care 10/22/2024 10:10 AM CDT - 10/22/2024 11:59 PM CDT Hospital Encounter [address] [address] Discharge Disposition: Discharge to home or self care from Last 3 Months Allergies Active Allergy [...] mouth every 6 (six) hours 30 tablet Active docusate sodium (COLACE) 100 mg capsuleIndications: [...] History of intestinal obstruction 01/06/2016 03/05/2018 Immunizations Immunization Administration Dates Next Due Influenza, [...] on file 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 Gender Identity Not on file Sexual [...] on file Medical Devices Implanted Type Area Nutrition Program Instructor Device Identifier Shelf Expiration Date Model / Serial / Lot [employer] Inc/C R Bard [id number] [facility] Sep[facility] Echo Ps 8x6in Monofilament Absorbable Low Latex Free - [id number] Implanted:Qty: 1 on 10/22/2018 by Sage Julien MD at [facility] N/A: Abdomen [employer] R Bard 05/06/2020 [id number] / / [id number] Procedures Procedure Name Priority Date/Time Associated Diagnosis [...] Eosinophil abs 0.16 0.00 - 0.50 K/cumm [facility] Basophil abs 0.05 0.00 - 0.10 K/cumm [facility] Neutrophil pct 70.1 % [facility] Comment: Interpretive Data Percent cell count reference ranges are not reported, since discordance with absolute values may lead to misinterpretation of CBC data. Current Interpretive Data was last revised on 2017. Imm gran pct 0.3 % [facility] Comment: Interpretive Data Percent cell count reference ranges are not reported, since discordance with absolute values may lead to misinterpretation of CBC data. Current Interpretive Data was last revised on 2017. Lymphocyte pct 17.3 % [facility] Comment: Interpretive Data Percent cell count reference ranges are not reported, since discordance with absolute values may lead to misinterpretation of CBC data. Current Interpretive Data was last revised on 2017. Monocyte pct 9.4 % [facility] Comment: Interpretive Data Percent cell count reference ranges are not reported, since discordance with absolute values may lead to misinterpretation of CBC data. Current Interpretive Data was last revised on 2017. Eosinophil pct 2.2 % [facility] Comment: Interpretive Data Percent cell count reference ranges are not reported, since discordance with absolute values may lead to misinterpretation of CBC data. Current Interpretive Data was last revised on 2017. Basophil pct 0.7 % [facility] Comment: Interpretive Data Percent cell count reference ranges are not reported, since discordance with absolute values may lead to misinterpretation of CBC data. Current Interpretive Data was last revised on 2017. Blood 10/22/2024 10:1 0 AM CDT 10/22/2024 9:46 PM CDT us Tahir Hartman DO LAB BLOOD ORDERABLES Final R esult [facility] [address] Department [place] [address] * (ABNORMAL) CBC with auto differential (10/22/2024 10:10 AM CDT) WBC 7.15 3.80 - 9.90 K/cumm Hgb 9.1(L) 11.9 - 15.5 g/dL [facility] Hct 30.5(L) 35.6 - 45.5 % [facility] Plt 310 150 - 400 K/cumm [facility] MPV 11.0 9.1 - 12.3 fL [facility] RBC 2.78(L) 3.90 - 5.20 M/cumm [facility] MCV 109.7(H) 81.3 - 96.4 fL [facility] MCH 32.7 27.1 - 33.3 pg [facility] MCHC 29.8(L) 32.3 - 35.7 g/dL [facility] RDW CV 14.2 11.1 - 14.9 % [facility] RDW SD 57.6(H) 35.7 - 48.1 fL [facility] NRBC abs 0.00 0.00 - 0.01 K/cumm [facility] Blood 10/22/2024 10:1 0 AM CDT 10/22/2024 9:46 PM CDT us Tahir Hartman DO LAB BLOOD ORDERABLES Final R esult [facility] [id number] [address] Department [place] [address] from Last 3 Months Insurance [facility] MEDICARE ADVANTAGE [facility] MEDICARE ADVANTAGE [facility] MEDICARE ADVANTAGE [employer]HC MEDICARE ADVANTAGE Advance Directives For more information, please contact: [phone] * Full Code (Latest Code Status on File) Date Activated Date Inactivated Comments 10/22/2018 1:40 PM 10/24/2018 7:57 PM Care Teams Fixture Builder Relationship Specialty Start Date End Date Manas Dupree MD [address] [place] [address] PCP - General 10/12/16 Tahir Hartman DO [address] [place] [address] MEDICAL ONCOLOGY, [address] [address] Medical Oncologist/Printed Circuit Board Panels Trimmer Hematology and Oncology 09/24/21
--- OUTSIDE RECORDS SUMMARY | 2024-11-23 11:14 | XMS_ITS | Encounter Summary ---
Author Organization [facility] Address [address] [place] [address] Phone Care Team Providers Care Hvac Operations Technician Name Role Phone Manas Dupree MD Primary Care Prov ider Claudette Mccoy MD Unavailable Tahir Hartman DO Unavailable [phone] Encounter Details Date Type Department Care Team (Late st Contact Info) Description 05/28/2019 Social Work 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 Will meet with pt tomorrow at Appt tocomplete appl. ICAL TECHNICIAN documented in this encounter Plan of Treatment Not on file documented as of this encounter Visit Diagnoses Not on filedocumented in this encounter Care Teams Hvac Operations Technician Relationship Specialty Start Date End Date Manas Dupree MD [address] [place] [address] PCP - General 10/12/16 Claudette Mccoy MD [address] [place] [address] Medical Oncologist/Fish House Worker Medical Oncology 03/05/18 05/26/21 Tahir Hartman DO [facility] MEDICAL ONCOLOGY, [address] [address] Medical Oncologist/Fish House Worker Hematology and Oncology 09/24/21 documented as of this encounter
--- NOTE | 2024-11-23 11:21 | PC.NURSE ---
Repeat BS 41 in triage, currently giving additional oral glucose and attempting IV access.
[2024-11-23] MEDS: DEXTROSE 50% 25 GM/50 ML SYRINGE (11:34)
[2024-11-23 11:39] LABS: Glucose Point of Care 41 mg/dl (65-105)
[2024-11-23 11:41] LABS: Basophils Percent Auto 0.1 % (0.2-1.2); Hematocrit 33.8 % (37.0-47.0); Immature Granulocyte Absolute 0.03 K/mm3 (0.00-0.031); Immature Granulocyte Percent A 0.4 % (0-0.5); Lymphocytes Absolute Auto 1.47 K/mm3 (0.9-3.2); Lymphocytes Percent Auto 17.5 % (18.3-44.2); Mean Corpuscular HGB Conc 29.6 g/dl (32-36); Mean Corpuscular Hemoglobin 32.7 pg (26-34); Mean Corpuscular Volume 110.5 fl (80-100); Monocytes Absolute Auto 0.6 K/mm3 (0.1-0.6); Monocytes Percent Auto 6.6 % (2.6-8.5); Neutrophils Absolute Auto 6.3 K/mm3 (1.3-6.7); Neutrophils Percent Auto 75.4 % (45.5-73.1); Platelet Count Result 307 k/mm3 (150-375); Red Blood Count 3.06 M/mm3 (4.2-5.4); Red Cell Distribution Width 14.3 % (11.5-14.5); White Blood Count 8.4 K/mm3 (4.5-10.0)
[2024-11-23 11:55] LABS: Alanine Aminotransferase 28 U/L (6-35); Albumin Level 3.7 g/dL (3.5-5.1); Alkaline Phosphatase 95 U/L (38-126); Aspartate Amino Transferase 46 U/L (14-36); Bilirubin,Total 0.5 mg/dL (0.2-1.3); Blood Urea Nitrogen 72 mg/dL (7-17); Calcium 8.9 mg/dL (8.4-10.2); Carbon Dioxide < 5 mmol/L (22-30); Chloride 104 mmol/L (98-107); Estimated CRCL calculation 8 ml/min; Estimated Glomerular Filt Rate 6; Glucose 44 mg/dL (65-110); Potassium 5.4 mmol/L (3.4-5.0); Sodium 137 mmol/L (137-145)
[2024-11-23 11:59] LABS: Anisocytosis 1+; Hypochromasia 1+; Platelet Estimate Increased (Adequate)
[2024-11-23 12:00] LABS: Acanthocytes 2+
[2024-11-23 12:01] LABS: Glucose Point of Care 146 mg/dl (65-105)
[2024-11-23 12:02] LABS: Schistocytes Rare
--- NOTE | 2024-11-23 12:24 | ECG_ITS ---
Test Date: 2024-11-23 12:30:56 Measurements Intervals Russell Rate: 98 P: 27 TX: 199 QRS: -64 QRSD: 124 T: 31 QT: 365 QTc: 466 Interpretive Statements SINUS RHYTHM WITH SINUS ARRHYTHMIA RIGHT BUNDLE BRANCH BLOCK [120+ ms QRS DURATION, UPRIGHT V1, 40+ ms S IN I/aVL/V4/V5/V6] LEFT ANTERIOR FASCICULAR BLOCK [QRS AXIS <= -45, QR IN I, RS IN II] POSSIBLE INFERIOR AND ANTERIOR MYOCARDIAL INFARCTION ABNORMAL ECG Electronically Signed On 11-23-2024 13:03:08 CDT by Mike Pineda M.D.
--- NOTE | 2024-11-23 12:43 | ED_ITS ---
HPI - Weakness General Chief complaint: Weakness Stated complaint: weakness, n/v x 2 days Time Seen by Provider: 11/23/24 12:32 Source: patient and family Mode of arrival: EMS History of Present Illness HPI Narrative: Patient presents with report of generalized weakness over the past approximately 1 week (it was initially reported as 2 days but family states longer than that). Patient has been nauseated and with occasional vomiting. Her last episode of emesis was this morning but she states that she is not currently nauseated. No appreciable blood in the vomit. Her last bowel movement was this morning and she denies any diarrhea, constipation, or blood although her family states that they think she might of had some diarrhea. She denies any cough. She has had decreased energy. At per she denies any pain including no chest pain or abdominal pain. Denies myalgias. She does endorse that she has been short of breath but denies any underlying respiratory conditions. She has a bit of a headache. Denies any falls. Patient denies any changes in her urine including no changes in urine output when explicitly asked. She has a history of diabetes mellitus but is not on any insulin and her only medication for this is metformin. She has a history of a stromal tumor with liver Mets for which she takes a chemo medication orally. She is also status post Whipple procedure. EMS reported an initial blood sugar of 49 mg/dL for which she was given oral glucose. Upon arrival to the emergency department her point of care glucose remained low in the 40s and patient was given IV dextrose with improvement. Related Data Home Medications Medication Instructions Recorded Confirmed Last Taken Type imatinib 400 mg tablet 400 mg PO DAILY 11/23/23 09/26/24 08/02/24 History calcium acetate 668 mg (169 mg 668 mg PO ONCE 04/26/24 09/26/24 08/10/24 History calcium) tablet cholecalciferol (vitamin D3) 10 10 mcg PO DAILY 04/26/24 09/26/24 08/03/24 History mcg (400 unit) capsule (Vitamin D3) vitamin B12 500 mcg-folic acid 400 1 tablet PO DAILY 04/26/24 09/26/24 08/03/24 History mcg tablet ferrous sulfate 325 mg (65 mg 325 mg PO DAILY 08/03/24 09/26/24 08/10/24 History iron) tablet (Feosol) aspirin 81 mg tablet,delayed 81 mg PO DAILY 08/12/24 09/26/24 08/10/24 08:45 History release (Adult Low Dose Aspirin) lisinopril 10 mg tablet 10 mg PO DAILY 09/26/24 09/26/24 Unknown History metformin 500 mg tablet,extended 1,000 mg PO BID 09/26/24 09/26/24 Unknown History release 24 hr (Glucophage XR) Allergies Allergy/AdvReac Type Severity Reaction Status Date / Time morphine AdvReac Nausea and Verified 09/26/24 07:36 Vomiting PMFSH Past Medical History Medical History Overactive bladder Age related osteoporosis Atherosclerosis of aorta Essential (primary) hypertension Pure hypercholesterolemia, unspecified Type 2 diabetes mellitus Anemia, iron deficiency 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 Protein calorie malnutrition PFO (patent foramen ovale) (07/2024) 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; also CVA in July 2024 - no deficits Cancer, metastatic to liver History of cervical cancer Surgical History Surgical History History of Whipple procedure (11/2014) History of hysterectomy with bilateral oophorectomy (1995) Hx of hernia repair (2017) Family History Family History Father Acute myocardial infarction Mother Rheumatic fever Social History Social History (Updated 11/23/24 @ 13:29 by Sara Carrasco MD) Social History: DNR per facility documentation and POLST signed 07/20/2021 Smoking status: Never smoker Second hand tobacco smoke exposure: No Alcohol intake: never Substance use: never Do You Feel Safe in your Home?: Yes Lack of Transportation: No Lack of Food: Never True Current Housing: I Have Housing Concerned About Future Housing: No Difficulty Paying Gas/Electric Bills: No Difficulty Paying for Meds: No Currently Unemployed: No Education: High School Diploma/GED Difficulty w/ Childcare or Family Care: No Additional living arrangements comments: [facility] since 06/25/2021 Spiritual care concerns: No Exam 2 Narrative: GENERAL: well-nourished, and in no acute distress. HEAD: Normocephalic, atraumatic. EYES: Non injected, non icteric ENT: Nares clear, no rhinorrhea or epistaxis. NECK: Supple. CHEST: Speaking in full sentences. No respiratory distress. Lungs clear to auscultation bilaterally HEART: Regular rate and rhythm at the time of my exam. ABDOMEN: Nondistended. Well healed low abdominal midline scar. Ballotable firmness/mass particularly in lower abdomen, right > left but without rigidity or tenderness to palpation. EXTREMITIES: Normal range of motion. No lower extremity edema. SKIN: Warm, dry, no rash. NEURO: No focal deficits. Alert and oriented x3. PSYCH: Normal mood and affect. Course Vital Signs Vital signs: Vital Signs Temperature 98.0 F 11/23/24 11:13 Pulse Rate 114 H 11/23/24 11:13 Respiratory Rate 14 11/23/24 11:13 Blood Pressure 83/40 L 11/23/24 11:13 Pulse Oximetry 98 11/23/24 11:13 Oxygen Delivery Room Air 11/23/24 11:13 Temperature 93.7 F L 11/23/24 21:31 Pulse Rate 73 11/23/24 21:31 Respiratory Rate 29 H 11/23/24 21:31 Blood Pressure 90/40 L 11/23/24 21:31 Pulse Oximetry 98 11/23/24 21:31 Oxygen Delivery Room Air 11/23/24 13:28 Fraction of Inspired Oxygen 21 11/23/24 13:28 MDM - Weakness MDM Narrative Medical decision making narrative: Patient presents with generalized weakness as well as nausea and vomiting of approximately 1 week's duration In the ED she is afebrile with VS that show tachycardia and hypotension but on repeat tachycardia still present and BP improved (MAP 78mmHg). Hypoglycemic prior to dextrose given. Creatinine typically slightly elevated but <2, today >6 concerning for acute renal failure. Isolated elevated AST. Mild hyperkalemia; dextrose has already been given, no role for insulin given hypoglycemia. Calcium gluconate ordered as is high dose albuterol and bicarb given acidosis. Bladder scan negligible and nothing on bladder scan, this fits with acute renal failure. 1L IV fluids ordered initially and, given now mild tachypnea, there is concern for sepsis so blood cultures, lactic acid, and empiric antibiotics ordered. No leukocytosis; normocytic anemia with hemoglobin actually improved from previous. TSH normal. Troponin normal. BNP mildly elevated although chest x-ray without indication pulmonary edema and patient does not appear volume overloaded on auscultation. Dimer elevated, can not proceed with CT with contrast at this time due to renal function. Lactic acidosis, marked >14. 2nd liter IV fluids ordered. Patient vomits, Zofran ordered. I am informed at 5:20 p.m. that patient has a low core temperature. Quyen Hugger applied. Temp sensing Hopkins is placed but patient still has not produced significant urine. Vascular access is a significant issue as there are difficulties obtaining labs and starting IVs. She has several IVs placed but then they blow/infiltrate/are accidentally pulled out. For this reason, PICC line ordered. I did discuss patient's workup with the and noted the severity of her condition given her kidney function and the concern for acute renal failure based on the lab as well as the fact that she is not producing urine. We discussed that this can cause the electrolyte abnormalities including hyperkalemia initially seen as well as can cause confusion from toxin buildup. We discussed the rest of patient's workup in what measures were being trialed but that the patient would be admitted and is in very severe/critical condition. They confirmed that patient is a DNR/DNI code status. Patient has been complaining of being more uncomfortable, with back pain. This is possibly due to the hospital stretcher she is in and they have attempted having patient sit upright and lying her flat as well as various positions in between. Acetaminophen is ordered given she has listed allergy to morphine. She does appear to have become more somnolent and confused. She is protecting her airway although is more tachypneic. Discussed with Dr Zuleta who recommends bicarb drip with free water at 250/hr for 4 hours followed by 125/hr subsequently in addition to continuing aggressive resuscitation. He is aware that vascular access was a difficulty up to this point. ABG ordered. Had discussed patient's DNR/DNI status with family earlier; Dr Zuleta inquires if there was interest in pursuing dialysis. I attempted to return to the room but family has left now. Once PICC placed and confirmation of placement, I urged RN to send the repeat labs (lactic acid and repeat BMP) and ensure bolus #2 is running. Repeat BMP essentially unchanged. I did discuss with PM nurse the need for the IV fluids that had been ordered (including bicarb drip). Discussed patient with on-call hospitalist physician laundry assistant Mackenzie as well as on-call ballpoint pen assembly machine operator Dr. Mata who accepts patient to the unit . Of note, charge nurse had discussed with nuclear medicine the ability to obtain a V/Q scan given her elevated dimer and patient had received the necessary medication in advance but there were delays due to her condition in her being taken to nuc med suite. Staff member does present and inform ED staff of this and patient is taken to nuc med as a result. Repeat lactic acid essentially still unchanged, profound acidosis. Patient outcome appears grim and likely terminal but orders have been placed and discussed with necessary admitting team members/staff. == Critical Care: 1 or more vital organ systems impaired with a high probability of imminent or life-threatening deterioration in the patient's condition requiring frequent personal assessment and manipulation of the patient's condition. This included time spent evaluating the patient, speaking with EMS pre-hospital personnel and family, reviewing/interpreting laboratory/imaging studies, discussing the case with consultants or admitting teams, retrieving data and reviewing charts, monitoring for decompensation, documenting the visit, and performing bundled procedures exclusive of separately billed procedures. Differential Diagnosis Differential diagnosis: Likely acute myocardial infarction, anemia, hypoglycemia, hypothyroidism, rhabdomyolysis, sepsis, dehydration and other (Urinary tract infection, pneumonia, acute viral syndrome/flu; electrolyte abnormalities; ) Lab Data Attestation: I reviewed the patient's lab results. 11/23/24 11:36 11/23/24 19:23 Labs: Lab Results 11/23/24 11/23/24 11/23/24 Range/Units 11:20 11:36 11:59 WBC 8.4 (4.5-10.0) K/mm3 RBC 3.06 L (4.2-5.4) M/mm3 Hgb 10.0 L (12.0-15.0) g/dL Hct 33.8 L (37.0-47.0) % MCV 110.5 H (80-100) fl MCH 32.7 (26-34) pg MCHC 29.6 L (32-36) g/dl RDW 14.3 (11.5-14.5) % Plt Count 307 (150-375) k/mm3 MPV 10.0 (7.4-10.4) fl Immature Gran % (Auto) 0.4 (0-0.5) % Neut % (Auto) 75.4 H (45.5-73.1) % Lymph % (Auto) 17.5 L (18.3-44.2) % Dupage % (Auto) 6.6 (2.6-8.5) % Eos % (Auto) 0.0 (0-4.4) % Baso % (Auto) 0.1 L (0.2-1.2) % Lymph # (Auto) 1.47 (0.9-3.2) K/mm3 Dup[place] # (Auto) 0.6 (0.1-0.6) K/mm3 Eos # (Auto) 0.0 (0-0.3) K/mm3 Baso # (Auto) 0.0 (0.0-0.1) K/mm3 Abs Immat Gran (auto) 0.03 (0.00-0.031) K/mm3 Absolute Neuts (auto) 6.3 (1.3-6.7) K/mm3 Absolute Nucleated RBC 0.000 (0.0-0.012) K/mm3 Band Neutrophils % Not Reportable Nucleated RBC % 0.0 (0.0-0.2) % Platelet Estimate Increased (Adequate) Hypochromasia 1+ Anisocytosis 1+ Acanthocytes (Spur) 2+ Schistocytes Rare PT (11.1-14.7) Seconds INR APTT (22.3-36.8) Seconds D-Dimer (<0.48) ug/mL Sodium 137 (137-145) mmol/L Potassium 5.4 H (3.4-5.0) mmol/L Chloride 104 (98-107) mmol/L Carbon Dioxide < 5 L (22-30) mmol/L Anion Gap (4-12) mmol/L BUN 72 H D (7-17) mg/dL Creatinine 6.67 H (0.7-1.0) mg/dL Estim Creat Clear Calc 8 ml/min Estimated GFR 6 L (59 - ) Glucose 44 L* (65-110) mg/dL POC Capillary Glucose 41 L* 146 H (65-105) mg/dl Lactic Acid (0.7-2.0) mmol/L Calcium 8.9 (8.4-10.2) mg/dL Phosphorus (2.5-4.5) mg/dL Magnesium 1.5 L (1.6-2.3) mg/dL Total Bilirubin 0.5 (0.2-1.3) mg/dL AST 46 H (14-36) U/L ALT 28 (6-35) U/L Alkaline Phosphatase 95 (38-126) U/L Total Creatine Kinase 74 (30-135) U/L Troponin I 0.017 (0.000-0.034) ng/mL C-Reactive Protein 2.1 H (<1.0) mg/dL NT-Pro-B Natriuret Pep 1950 H (19.9-100) pg/mL Total Protein 6.0 L (6.3-8.2) g/dL Albumin 3.7 (3.5-5.1) g/dL TSH (Reflex) 0.801 (0.465-4.68) uIU/mL Influenza A (RT-PCR) (Negative) Influenza B (RT-PCR) (Negative) RSV (RT-PCR) (Negative) SARS-CoV-2 RNA (RT-PCR) (Negative) 11/23/24 11/23/24 11/23/24 Range/Units 12:32 13:00 13:55 WBC (4.5-10.0) K/mm3 RBC (4.2-5.4) M/mm3 Hgb (12.0-15.0) g/dL Hct (37.0-47.0) % MCV (80-100) fl MCH (26-34) pg MCHC (32-36) g/dl RDW (11.5-14.5) % Plt Count (150-375) k/mm3 MPV (7.4-10.4) fl Immature Gran % (Auto) (0-0.5) % Neut % (Auto) (45.5-73.1) % Lymph % (Auto) (18.3-44.2) % Dupage % (Auto) (2.6-8.5) % Eos % (Auto) (0-4.4) % Baso % (Auto) (0.2-1.2) % Lymph # (Auto) (0.9-3.2) K/mm3 Dup[place] # (Auto) (0.1-0.6) K/mm3 Eos # (Auto) (0-0.3) K/mm3 Baso # (Auto) (0.0-0.1) K/mm3 Abs Immat Gran (auto) (0.00-0.031) K/mm3 Absolute Neuts (auto) (1.3-6.7) K/mm3 Absolute Nucleated RBC (0.0-0.012) K/mm3 Band Neutrophils % Nucleated RBC % (0.0-0.2) % Platelet Estimate (Adequate) Hypochromasia Anisocytosis Acanthocytes (Spur) Schistocytes PT 17.6 H (11.1-14.7) Seconds INR 1.4 APTT 27.2 (22.3-36.8) Seconds D-Dimer 5.70 H (<0.48) ug/mL Sodium (137-145) mmol/L Potassium (3.4-5.0) mmol/L Chloride (98-107) mmol/L Carbon Dioxide (22-30) mmol/L Anion Gap (4-12) mmol/L BUN (7-17) mg/dL Creatinine (0.7-1.0) mg/dL Estim Creat Clear Calc ml/min Estimated GFR (59 - ) Glucose (65-110) mg/dL POC Capillary Glucose 130 H (65-105) mg/dl Lactic Acid 14.1 H* (0.7-2.0) mmol/L Calcium (8.4-10.2) mg/dL Phosphorus (2.5-4.5) mg/dL Magnesium (1.6-2.3) mg/dL Total Bilirubin (0.2-1.3) mg/dL AST (14-36) U/L ALT (6-35) U/L Alkaline Phosphatase (38-126) U/L Total Creatine Kinase (30-135) U/L Troponin I (0.000-0.034) ng/mL C-Reactive Protein (<1.0) mg/dL NT-Pro-B Natriuret Pep (19.9-100) pg/mL Total Protein (6.3-8.2) g/dL Albumin (3.5-5.1) g/dL TSH (Reflex) (0.465-4.68) uIU/mL Influenza A (RT-PCR) Negative (Negative) Influenza B (RT-PCR) Negative (Negative) RSV (RT-PCR) Negative (Negative) SARS-CoV-2 RNA (RT-PCR) Negative (Negative) 11/23/24 Range/Units 19:23 WBC (4.5-10.0) K/mm3 RBC (4.2-5.4) M/mm3 Hgb (12.0-15.0) g/dL Hct (37.0-47.0) % MCV (80-100) fl MCH (26-34) pg MCHC (32-36) g/dl RDW (11.5-14.5) % Plt Count (150-375) k/mm3 MPV (7.4-10.4) fl Immature Gran % (Auto) (0-0.5) % Neut % (Auto) (45.5-73.1) % Lymph % (Auto) (18.3-44.2) % Dupage % (Auto) (2.6-8.5) % Eos % (Auto) (0-4.4) % Baso % (Auto) (0.2-1.2) % Lymph # (Auto) (0.9-3.2) K/mm3 Dupage # (Auto) (0.1-0.6) K/mm3 Eos # (Auto) (0-0.3) K/mm3 Baso # (Auto) (0.0-0.1) K/mm3 Abs Immat Gran (auto) (0.00-0.031) K/mm3 Absolute Neuts (auto) (1.3-6.7) K/mm3 Absolute Nucleated RBC (0.0-0.012) K/mm3 Band Neutrophils % Nucleated RBC % (0.0-0.2) % Platelet Estimate (Adequate) Hypochromasia Anisocytosis Acanthocytes (Spur) Schistocytes PT (11.1-14.7) Seconds INR APTT (22.3-36.8) Seconds D-Dimer (<0.48) ug/mL Sodium 139 (137-145) mmol/L Potassium 5.5 H (3.4-5.0) mmol/L Chloride 105 (98-107) mmol/L Carbon Dioxide < 5 L (22-30) mmol/L Anion Gap (4-12) mmol/L BUN 69 H (7-17) mg/dL Creatinine 6.76 H (0.7-1.0) mg/dL Estim Creat Clear Calc 8 ml/min Estimated GFR 6 L (59 - ) Glucose 105 (65-110) mg/dL POC Capillary Glucose (65-105) mg/dl Lactic Acid 15.6 H* (0.7-2.0) mmol/L Calcium 8.9 (8.4-10.2) mg/dL Phosphorus 6.4 H (2.5-4.5) mg/dL Magnesium (1.6-2.3) mg/dL Total Bilirubin (0.2-1.3) mg/dL AST (14-36) U/L ALT (6-35) U/L Alkaline Phosphatase (38-126) U/L Total Creatine Kinase (30-135) U/L Troponin I (0.000-0.034) ng/mL C-Reactive Protein (<1.0) mg/dL NT-Pro-B Natriuret Pep (19.9-100) pg/mL Total Protein (6.3-8.2) g/dL Albumin (3.5-5.1) g/dL TSH (Reflex) (0.465-4.68) uIU/mL Influenza A (RT-PCR) (Negative) Influenza B (RT-PCR) (Negative) RSV (RT-PCR) (Negative) SARS-CoV-2 RNA (RT-PCR) (Negative) ABG Data ABG results: 11/23/24 19:44 Puncture Site Right radial ABG pH 6.829 L* ABG pCO2 11.0 L* ABG pO2 150.0 H ABG PO2/FiO2 Ratio > 0.00 ABG HCO3 1.8 L ABG O2 Saturation 96.7 ABG O2 Content 12.4 L ABG Base Excess -30.3 A-a Gradient < 0.0 Oxyhemoglobin 97.5 Total Hemoglobin 8.8 L O2 Delivery Device Room air O2 Liters/Min Not Reportable FiO2 21 Attestation: I personally reviewed and interpreted this ABG as follows: Interpretation: metabolic acidosis; respiratory alkalosis Imaging Data Radiologist's impression: Impressions Chest X-Ray 11/23/24 13:41 IMPRESSION: 1. No acute cardiopulmonary disease. Head CT 11/23/24 15:11 IMPRESSION: No acute intracranial findings. Left maxillary sinusitis. Chest/Abdomen/Pelvis CT 11/23/24 15:51 IMPRESSION: CHEST: 1. No acute cardiopulmonary pathology. 2. Nodule in the right apical area medially measuring 1.1 cm. 3 months follow- up CT is advised. ABDOMEN/PELVIS: 1. Soft tissue density with central hypodensity is seen in the anterior abdominal wall in the pelvis with postoperative changes suggestive of a hematoma. Clinical correlation and follow-up advised. 2. No evidence of appendicitis, diverticulitis or intestinal obstruction. Chest X-Ray 11/23/24 19:05 IMPRESSION: No acute cardiopulmonary pathology. PICC line with the tip overlying superior vena cava. ECG Data EKG #1: Attestation: I personally reviewed and interpreted this ECG as follows: ECG completion date: 11/23/24 ECG completion time: 12:30 Interpretation: NSR at a rate of 98, borderline tachycardic. NE interval also borderline, at 199ms. RBBB given QRS >120 (124ms) and M shaped RSR appearance of V1-V3 with slurred lateral precordial leads I, aVL, V5&6. T wave inversion in V3, possibly due to lead placement. LAFB. QT/QTC <425, acceptable. Critical Care Time Critical Care Time Critical Care Time: Yes Total Critical Care Time: 60 Discharge Plan Discharge Clinical Impression: Hypoglycemia associated with diabetes, Generalized weakness, Hyperkalemia, Normocytic anemia, Left maxillary sinusitis, Hematoma of abdominal wall, Acidosis, lactic Acute renal failure Qualifiers: Acute renal failure type: unspecified Qualified Code(s): N17.9 - Acute kidney failure, unspecified Patient Disposition: Still a Patient Condition: Critical
--- NOTE | 2024-11-23 12:52 | PC.NURSE ---
Straight catheterized pt for urine sample, no urine output noted. Bladder scan showed 0ml. Md made aware.
--- OUTSIDE RECORDS SUMMARY | 2024-11-23 12:52 | XMS_ITS | Clinical Summary ---
Author Organization [facility] Address [address] [address] Care Team Providers Care Online Program Coordinator Name Role Phone Unavailable Primary Care Provider Unavailabl e Source Comments [facility],non-owned Affiliates and Associated Physician Practices is amultiple site organization consisting of ambulatory clinics and hospital sitesin [place], [place], [place] and [place]. This disclosure is being madepursuant to the Care Everywhere program and may not contain all information available regarding this patient. Last updated 18.[facility] [employer] Social History Tobacco Use Types Packs/Day Years [...]
--- OUTSIDE RECORDS SUMMARY | 2024-11-23 12:52 | XMS_ITS | Encounter Summary ---
Author Organization [facility] Address [address] [place] [address] Phone Care Team Providers Care Digital Engineer Name Role Phone Manas Dupree MD Primary Care Prov ider Claudette Mccoy MD Unavailable Tahir Hartman DO Unavailable Encounter Details Date Type Department Care Team (Late st Contact Info) Description 05/28/2019 Social Work [facility] Oncology [facility] 7[address] [place] [address] [place] [address] Amy Portillo LCSW Social History Tobacco Use Types Packs/Day Years Used Date Smoking Tobacco: Never Smokeless Tobacco: Never Alcohol Use Standard Drinks/Week Comments No 0 (1 standard drink = 0.6 oz pur e alcohol) rare Comments No Sex and Gender Information Value Date Recorded Sex Assigned at Not on file Legal Sex Female 3:10 AM 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 Gender Identity Not on file Sexual Orientation Not on file documented as of this encounter Progress Notes * Amy Portillo LCSW - 05/28/2019 9:47 AM CST Placed call to pt to discuss re-enrollment for rx Gleevec. Will meet with pt tomorrow at Appt tocomplete appl. 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 documented in this encounter Plan of Treatment Not on file documented as of this encounter Visit Diagnoses Not on filedocumented in this encounter Care Teams Digital Engineer Relationship Specialty Start Date End Date Manas Dupree MD [address] [place] [address] PCP - General 10/12/16 Claudette Mccoy MD [address] [place] [address] Medical Oncologist/Loss Prevention Lead Medical Oncology 03/05/18 05/26/21 Tahir Hartman DO [facility] MEDICAL ONCOLOGY, [address] [address] Medical Oncologist/Loss Prevention Lead Hematology and Oncology 09/24/21 documented as of this encounter
--- OUTSIDE RECORDS SUMMARY | 2024-11-23 12:52 | XMS_ITS | Continuity of Care Document ---
Author Organization [facility] Address [address] [place] [address] [place] [address] Phone Care Team Providers Care Supervisor [employer] Name Role Phone Blade Alford Unavailable Unavailable [...] Providers Copied on Encounter Office/outpat ient Visit, [facility] [address] [place] [address] [address], [place], [place], [id number], tel:[phone] [facility] No Information 0-201 0 Rocío Murguia. [address] , [address], [place], [address], [place]. tel:[phone] Office/outpat ient Visit, [facility] [address] [place] [address] [address], [place], [place], [id number], [place] tel:[phone] [facility] No Information 4-200 9 Rocío Murguia. [address] , [address], [place], [address], [place]. tel:[phone] Office/outpat ient Visit, [facility], [address], [place], [place], [id number], [place] tel:[phone] [facility] No Information Oct-1 4-200 9 Rocío Murguia. [address] , [address], [place], [address], [place]. tel:[phone] [facility], [address], [place], [place], [address], [place] tel:[phone] [facility] No Information Oct-0 5-200 9 Rocío Murguia. [address] , [address], [place], [address], [place]. tel:[phone] [facility], [address], [place], [place], [address], [place] tel:[phone] [facility] No Information Oct-2 0-200 8 Doiedwar Murguia. [address] [address] , [address], [place], [address], [place]. tel:[phone] [facility], [address], [place], [place], [address], [place] tel:[phone] [facility] No Information Nov-0 1-200 7 [employer] . [address] [facility], [address], [place], [place], [address], [place]. tel:[phone] Referring Provider: Blade Wilkinson, [address], [place], [address]. tel:[phone] sulting Provider: Bety Eric, [address] [place], [place], [facility]. tel:[phone] [facility], [address], [place], [place], [address], [place] tel:[phone] [facility] No Information Oct-1 2-200 7 Doisy Edward. [address] , [address], [place], [address], [place]. tel:[phone] Family History Family Member Type Diagnosis Age [...]
--- OUTSIDE RECORDS SUMMARY | 2024-11-23 12:52 | XMS_ITS | Clinical Summary ---
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) 10/22/2024 10:10 AM CDT - 10/22/2024 11:59 PM CDT Hospital Encounter [address] [address] Discharge Disposition: Discharge to home or self care 10/22/2024 10:10 AM CDT - 10/22/2024 11:59 PM CDT Hospital Encounter [address] [address] Discharge Disposition: Discharge to home or self [...] on file 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 Comment: Interpretive Data Percent cell count reference ranges are not reported, since discordance with absolute values may lead to misinterpretation of CBC data. Current Interpretive Data was last revised on 2017. Imm gran pct 0.3 % [facility] Comment: Interpretive Data Percent cell count reference ranges are not reported, since discordance with absolute values may lead to misinterpretation of CBC data. Current Interpretive Data was last revised on 2017. Lymphocyte pct 17.3 % [facility] Comment: Interpretive Data Percent cell count reference ranges are not reported, since discordance with absolute values may lead to misinterpretation of CBC data. Current Interpretive Data was last revised on 2017. Monocyte pct 9.4 % [facility] Comment: Interpretive Data Percent cell count reference ranges are not reported, since discordance with absolute values may lead to misinterpretation of CBC data. Current Interpretive Data was last revised on 2017. Eosinophil pct 2.2 % [facility] Comment: Interpretive Data Percent cell count reference ranges are not reported, since discordance with absolute values may lead to misinterpretation of CBC data. Current Interpretive Data was last revised on 2017. Basophil pct 0.7 % [facility] Comment: Interpretive Data Percent cell count reference ranges are not reported, since discordance with absolute values may lead to misinterpretation of CBC data. Current Interpretive Data was last revised on 2017. Blood 10/22/2024 10:1 0 AM CDT 10/22/2024 9:46 PM CDT Tahir Hartman DO LAB BLOOD ORDERABLES Final R esult [facility] [address] Department [place] [address] * (ABNORMAL) CBC with auto differential (10/22/2024 10:10 AM CDT) WBC 7.15 3.80 - 9.90 K/cumm Hgb 9.1(L) 11.9 - 15.5 g/dL [facility] Hct 30.5(L) 35.6 - 45.5 % [facility] Plt 310 150 - 400 K/cumm [facility] MPV 11.0 9.1 - 12.3 fL [facility] RBC 2.78(L) 3.90 - 5.20 M/cumm [facility] MCV 109.7(H) 81.3 - 96.4 fL [facility] MCH 32.7 27.1 - 33.3 pg [facility] MCHC 29.8(L) 32.3 - 35.7 g/dL [facility] RDW CV 14.2 11.1 - 14.9 % [facility] RDW SD 57.6(H) 35.7 - 48.1 fL [facility] NRBC abs 0.00 0.00 - 0.01 K/cumm [facility] Blood 10/22/2024 10:1 0 AM CDT 10/22/2024 9:46 PM CDT Tahir Hartman DO LAB BLOOD ORDERABLES Final R esult [facility] [address] Department [place] [address] from Last 3 Months Insurance [employer] MEDICARE ADVANTAGE [facility] MED[facility] Address: [place] [address] [employer] MEDICARE ADVANTAGE [facility] MED[facility] Address: [address] [address] [place] [address] [facility] MEDICARE ADVANTAGE [facility] Address: [address] [address] [facility] MEDICARE ADVANTAGE [facility] Address: [place] [phone] Advance Directives For more information, please contact: [phone] * Full Code (Latest Code Status on File) Date Activated Date Inactivated Comments 10/22/2018 1:40 PM 10/24/2018 7:57 PM Care Teams Marsh Buggy Operator Relationship Specialty Start Date End Date Manas Dupree MD [address] [place] [address] PCP - General 10/12/16 Tahir Hartman DO [address] [place] [address] MEDICAL ONCOLOGY, [facility] [address] [place] [address] Medical Oncologist/Cash Clerk Hematology and Oncology 09/24/21
--- OUTSIDE RECORDS SUMMARY | 2024-11-23 12:52 | XMS_ITS ---
Author Organization [facility] Address [address] [place] [address] Care Team Providers Care Social Sciences Department Chair Name Role Phone Manas Dupree MD Primary Care Prov ider Tahir Hartman DO Unavailable [phone] Active Problems Problem Noted Date Diagnosed Date [...]
--- OUTSIDE RECORDS SUMMARY | 2024-11-23 12:52 | XMS_ITS | Referral Summary ---
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) 10/22/2024 10:10 AM CDT - 10/22/2024 11:59 PM CDT Hospital Encounter [address] [address] Discharge Disposition: Discharge to home or self care 10/22/2024 10:10 AM CDT - 10/22/2024 11:59 PM CDT Hospital Encounter [address] [address] Discharge Disposition: Discharge to home or self [...] on file 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 Gender Identity Not on file Sexual [...] on file Medical Devices Implanted Type Area Director Drug Device Identifier Shelf Expiration Date Model / Serial / Lot [employer]/C R Bard [id number] [facility] Sepra Echo Ps 8x6in Monofilament Absorbable Low Latex Free - [id number] Implanted:Qty: 1 on 10/22/2018 by Sage Julien MD at [facility] N/A: Abdomen [employer] Bard 05/06/2020 [id number] / / [id number] Procedures Procedure Name Priority Date/Time Associated Diagnosis [...] Eosinophil abs 0.16 0.00 - 0.50 K/cumm [facility] Basophil abs 0.05 0.00 - 0.10 K/cumm [facility] Neutrophil pct 70.1 % [facility] Comment: Interpretive Data Percent cell count reference ranges are not reported, since discordance with absolute values may lead to misinterpretation of CBC data. Current Interpretive Data was last revised on 2017. Imm gran pct 0.3 % [facility] Comment: Interpretive Data Percent cell count reference ranges are not reported, since discordance with absolute values may lead to misinterpretation of CBC data. Current Interpretive Data was last revised on 2017. Lymphocyte pct 17.3 % [facility] Comment: Interpretive Data Percent cell count reference ranges are not reported, since discordance with absolute values may lead to misinterpretation of CBC data. Current Interpretive Data was last revised on 2017. Monocyte pct 9.4 % [facility] Comment: Interpretive Data Percent cell count reference ranges are not reported, since discordance with absolute values may lead to misinterpretation of CBC data. Current Interpretive Data was last revised on 2017. Eosinophil pct 2.2 % [facility] Comment: Interpretive Data Percent cell count reference ranges are not reported, since discordance with absolute values may lead to misinterpretation of CBC data. Current Interpretive Data was last revised on 2017. Basophil pct 0.7 % [facility] Comment: Interpretive Data Percent cell count reference ranges are not reported, since discordance with absolute values may lead to misinterpretation of CBC data. Current Interpretive Data was last revised on 2017. Blood 10/22/2024 10:1 0 AM CDT 10/22/2024 9:46 PM CDT us Tahir Hartman DO LAB BLOOD ORDERABLES Final R esult [facility] [id number] [place] [address] * (ABNORMAL) CBC with auto differential (10/22/2024 [...] RDW SD 57.6(H) 35.7 - 48.1 fL [facility] NRBC abs 0.00 0.00 - 0.01 K/cumm [facility] Blood 10/22/2024 10:1 0 AM CDT 10/22/2024 9:46 PM CDT us Tahir Hartman DO LAB BLOOD ORDERABLES Final R esult [address] [address] [address] [place] [address] from Last 3 Months Insurance [facility] MEDICARE ADVANTAGE [facility] MEDICARE ADVANTAGE [facility] MEDICARE ADVANTAGE [employer] MEDICARE ADVANTAGE Advance Directives For more information, please contact: [phone] * Full Code (Latest Code Status on File) Date Activated Date Inactivated Comments 10/22/2018 1:40 PM 10/24/2018 7:57 PM Care Teams Linux Kernel Developer Relationship Specialty Start Date End Date Manas Dupree MD [address] [place] [address] PCP - General 10/12/16 Tahir Hartman DO [address] [place] [address] MEDICAL ONCOLOGY, [address] [address] Medical Oncologist/Adoption Specialist Hematology and Oncology 09/24/21
--- OUTSIDE RECORDS SUMMARY | 2024-11-23 12:52 | XMS_ITS | Encounter Summary ---
Author Organization [facility] Address [address] [facility] [place] [address] Care Team Providers Care Rice Farmer Name Role Phone Unavailable Primary Care Provider Unavailabl e Encounter Details Date Type Department Care Team (Late st Contact Info) Description 04/12/2023 Lab Requisition [facility] - DermPath Lab [address] [facility] [place] [address] Eliceo Moctezuma MD [facility] DERMATOLOGY [address] [place] [phone] Squamous cell carcinoma of skin of [...] AM CDT) Case Report Dermatopathology Report Case: [id number] Authorizing Provider: Eliceo Moctezuma MD Collected: 04/12/2023 12:00 AM Ordering Location: [facility] DermPath Lab Received: 04/13/2023 01:42 PM Pathologist: [...] of a non-oriented ellipse of skin measuring 52v40x2 mm. The 12 o'clock and 6 o'clock [...] characteristic determined by the Dermatopathology Laboratory at [facility], directed by Dr. Gabi Miguel. These tests need not be, and therefore are not, approved by the [place] Food and Drug Administration. The tests are used for clinical purposes. Billing Codes Specimen Charges Stain Charges [address]62[address] 1 5:31 PM CDT DERMATOPATHOLOGY LABORATORY Embedded Images 5:31 PM CDT DERMATOPATHOLOGY LABORATORY Pathology/Cytolog y TISSUE SPECIMEN FROM SKIN / Unknown 04/12/2023 04/13/2023 1:42 PM CDT us Eliceo Moctezuma MD LAB - PATHOLOGY/CYTOLOGY ORDE BENIGNO Final Result DERMATOPATHOLOGY LABORATORY [facility] - Department of Dermatology [address] [phone] documented in this encounter Visit Diagnoses Diagnosis Squamous cell carcinoma of skin of left upper limb, including shoulder Squamous cell carcinoma of skin of upper limb, including shoulder documented in this encounter
[2024-11-23 13:02] LABS: Glucose Point of Care 130 mg/dl (65-105)
[2024-11-23 13:13] LABS: Influenza A QL RT-PCR Negative (Negative); Influenza B QL RT-PCR Negative (Negative); RSV RNA, RT-PCR Negative (Negative); SARS-CoV-2 RNA PCR Negative (Negative)
[2024-11-23 13:21] LABS: CRP 2.1 mg/dL (<1.0); Magnesium 1.5 mg/dL (1.6-2.3)
[2024-11-23 13:27] LABS: Creatine Kinase 74 U/L (30-135)
[2024-11-23] MEDS: ALBUTEROL SULFATE NEB 2.5 MG/3 ML INH 10 MG INHALATION ×2 (13:28→20:05)
[2024-11-23 13:31] LABS: Troponin I 0.017 ng/mL (0.000-0.034)
[2024-11-23 13:50] LABS: Thyroid Stimulating Hormone Reflex 0.801 uIU/mL (0.465-4.68)
[2024-11-23 13:58] LABS: NT Pro B Type Natriuretic Pept 1950 pg/mL (19.9-100)
[2024-11-23] MEDS: CALCIUM GLUCONATE 1,000 MG/10 ML VIAL 1000 MG IV PUSH ×2 (14:11→21:12)
[2024-11-23] MEDS: SODIUM CHLORIDE 0.9% IV 1,000 ML 999 ML IV CONT ×3 (14:11→20:11)
[2024-11-23] MEDS: SODIUM BICARBONATE 8.4% 50 MEQ/50 ML SYRINGE IV PUSH (14:11)
[2024-11-23 14:13] LABS: INR 1.4; Prothrombin Time 17.6 Seconds (11.1-14.7)
[2024-11-23 14:14] LABS: Partial Thromboplastin Time 27.2 Seconds (22.3-36.8)
--- NOTE | 2024-11-23 14:44 | PC.NURSE ---
Pt difficult stick. Phlebotomy called for second set of blood cultures.
[2024-11-23 14:47] LABS: Lactic Acid Reflex 14.1 mmol/L (0.7-2.0)
[2024-11-23] MEDS: ONDANSETRON INJ 4 MG/2 ML VIAL IV PUSH (15:24)
--- NOTE | 2024-11-23 15:27 | PC.NURSE ---
Vascular access called for additional blood cultures instead.
[2024-11-23 16:09] LABS: Reflex Lactic Acid Yes or No Add Lactic
[2024-11-23] MEDS: CEFEPIME 1 GM/NS 50 ML 1 GM/50 ML BAG IVPB (16:33)
--- NOTE | 2024-11-23 16:40 | PC.NURSE ---
per TRE Haro, called phlebotomy for redraw on labs. no answer at this time.
--- NOTE | 2024-11-23 17:06 | PC.NURSE ---
laboratory administrative director Alondra to be down to draw patient's repeat labs.
--- NOTE | 2024-11-23 18:32 | PC.NURSE ---
pt still has no output in lucas catheter
[2024-11-23 19:38] LABS: Blood Urea Nitrogen 69 mg/dL (7-17); Calcium 8.9 mg/dL (8.4-10.2); Carbon Dioxide < 5 mmol/L (22-30); Chloride 105 mmol/L (98-107); Estimated CRCL calculation 8 ml/min; Estimated Glomerular Filt Rate 6; Glucose 105 mg/dL (65-110); Potassium 5.5 mmol/L (3.4-5.0); Sodium 139 mmol/L (137-145)
[2024-11-23 19:40] LABS: Phosphorus 6.4 mg/dL (2.5-4.5)
[2024-11-23 19:54] LABS: Lactic Acid 15.6 mmol/L (0.7-2.0)
--- NOTE | 2024-11-23 20:00 | P.HP_ITS ---
H&P: HPI History of Present Illness Date/Time: 11/23/24 20:00 Chief Complaint: Weakness, nausea, and vomiting. Narrative: This is an 88-year-old female with history of stroke, hypertension, hyperlipidemia, gastrointestinal stromal tumor status post Whipple, and type 2 diabetes mellitus who presented to the emergency department via EMS from her assisted living facility with complaints of weakness, nausea, and vomiting. She is unable to provide much in the way of history and majority the following is supplemented via a review of her electronic medical records as well as information provided by 2 of her daughters who were at bedside. The patient lives in assisted living and she rarely leaves the home, spending a majority of her time in her recliner. She has not been feeling well for about a week with generalized malaise. More recently she has not been going down for breakfast and her oral intake has been poor. She has felt much worse the last 2 days and has complained of a headache, generalized weakness, nausea, vomiting, and loose stools. She is also feeling short of breath and has noticed a decrease in urine output. She has been taking her medications as prescribed. There were no reports of sick contacts. She has not been running a fever and denies cough, chest pain, and abdominal pain. In the ED: Vital signs on arrival include a temperature of 98.0°, blood pressure 83/40, pulse 114, respiratory rate 14, SpO2 98% on room air. Labs were significant for WBC count of 8.4, hemoglobin 10.0, MCV 110.5, D-dimer 5.70, sodium 135, potassium 5.4, carbon dioxide less than 5, BUN 72, creatinine 6.67, glucose 44, lactic acid 14.1, magnesium 1.5. Brain CT showed no acute findings but did note left maxillary sinusitis which appears chronic. CT of the chest, abdomen, and pelvis showed a nodule in the right apical area and soft tissue density in the anterior abdominal wall in the pelvis with postoperative changes suggestive of hematoma. She was given a dose of cefepime, received a 3 L normal saline bolus, and was started on a sodium bicarbonate drip. Temperature dropped and she was placed under a Quyen Hugger. PICC line was placed due to poor vascular access but she has not yet required vasopressors. ED physician spoke with the patient's family members about possible dialysis which they declined as the patient would not want heroic measures. She is being admitted to the ICU in this setting for medical treatment. In ICU: She was treated for hyperkalemia without much improvement. Repeat lactic acid level was 15.6. ABG showed a pH of 6.829, pCO2 11.0, and a bicarb of 1.8. She has not had any urine output and blood pressures have continued to fall. I had several talks with the patient's family members about her poor prognosis and they have agreed that the patient would not want extraordinary measures and would like her to be kept comfortable. The family's budget coordinator will be coming up tonight and she will be placed on comfort measures. Review of Systems Review of Systems: Unable to obtain accurately. 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 Code status: Do not resucitate. Smoking status: Unknown if ever smoked Second hand tobacco smoke exposure: No Alcohol intake: never Substance use: never Substance use type: does not use Do You Feel Safe in your Home?: Yes Lack of Transportation: No Lack of Food: Never True Current Housing: I Have Housing Concerned About Future Housing: No Difficulty Paying Gas/Electric Bills: No Difficulty Paying for Meds: No Currently Unemployed: No Education: High School Diploma/GED Difficulty w/ Childcare or Family Care: No Additional living arrangements comments: for 13 years. She has 5 children. Lives in assisted living at [facility] since 06/25/2021. Spiritual care concerns: Yes Meds Home Medications and Allergies Home Medications Medication Instructions Recorded Confirmed Type imatinib 400 mg tablet 400 mg PO DAILY 11/23/23 11/23/24 History calcium acetate 668 mg (169 mg 668 mg PO ONCE 04/26/24 11/23/24 History calcium) tablet cholecalciferol (vitamin D3) 10 10 mcg PO DAILY 04/26/24 11/23/24 History mcg (400 unit) capsule (Vitamin D3) vitamin B12 500 mcg-folic acid 400 1 tablet PO DAILY 04/26/24 11/23/24 History mcg tablet ferrous sulfate 325 mg (65 mg 325 mg PO DAILY 08/03/24 11/23/24 History iron) tablet (Feosol) aspirin 81 mg tablet,delayed 81 mg PO DAILY 08/12/24 11/23/24 History release (Adult Low Dose Aspirin) acetaminophen 325 mg tablet 650 mg (2 x 325 mg) PO Q6H PRN 08/22/24 11/23/24 Rx Mild Pain (1-3) Or Fever #0 tabs folic acid 1 mg tablet 0.5 mg (1/2 x 1 mg) PO DAILY #0 08/22/24 11/23/24 Rx tabs blood-glucose meter #1 ea 08/26/24 11/23/24 Rx blood sugar diagnostic (OneTouch #100 ea 09/02/24 11/23/24 Rx Ultra Test strips) lancets 33 gauge #100 ea 09/02/24 11/23/24 Rx lisinopril 10 mg tablet 10 mg PO DAILY 09/26/24 11/23/24 History metformin 500 mg tablet,extended 1,000 mg PO BID 09/26/24 11/23/24 History release 24 hr (Glucophage XR) clopidogrel 75 mg tablet 75 mg PO QAM #90 tabs 11/13/24 11/23/24 Rx simvastatin 40 mg tablet 40 mg PO QPM 11/23/24 11/23/24 History Allergies Allergy/AdvReac Type Severity Reaction Status Date / Time morphine AdvReac Nausea and Verified 11/23/24 22:23 Vomiting Vital Signs Vital Signs - 24 hr 11/23/24 11:13 11/23/24 12:21 11/23/24 12:23 Temperature 98.0 F Pulse Rate 114 H 103 H 108 H Respiratory Rate 14 22 H 22 H Blood Pressure 83/40 L 134/48 L 138/48 L Pulse Oximetry 98 99 100 Oxygen Delivery Room Air Fraction of Inspired Oxygen 11/23/24 12:45 11/23/24 13:28 11/23/24 13:28 Temperature Pulse Rate 119 H 71 Respiratory Rate 26 H 24 H Blood Pressure 142/55 H Pulse Oximetry 100 96 Oxygen Delivery Room Air Fraction of Inspired Oxygen 21 11/23/24 13:30 11/23/24 14:01 11/23/24 14:28 Temperature Pulse Rate 69 71 74 Respiratory Rate 24 H 23 H 25 H Blood Pressure 128/38 L 133/31 L Pulse Oximetry 100 100 Oxygen Delivery Fraction of Inspired Oxygen 11/23/24 14:31 11/23/24 14:42 11/23/24 15:25 Temperature Pulse Rate 80 68 71 Respiratory Rate 22 H 21 H 24 H Blood Pressure 122/42 L 122/42 L 125/40 L Pulse Oximetry 100 100 100 Oxygen Delivery Fraction of Inspired Oxygen 11/23/24 15:31 11/23/24 16:00 11/23/24 16:31 Temperature Pulse Rate 79 68 68 Respiratory Rate 23 H 25 H 23 H Blood Pressure 119/39 L 168/65 H Pulse Oximetry 98 100 98 Oxygen Delivery Fraction of Inspired Oxygen 11/23/24 16:37 11/23/24 17:13 11/23/24 17:14 Temperature 91 F L 91 F L Pulse Rate 74 Respiratory Rate 24 H Blood Pressure 168/65 H Pulse Oximetry 98 Oxygen Delivery Fraction of Inspired Oxygen 11/23/24 17:15 11/23/24 17:30 11/23/24 17:31 Temperature 91.6 F L 92.2 F L 92.1 F L Pulse Rate 66 96 95 Respiratory Rate 26 H 27 H 27 H Blood Pressure 146/54 H Pulse Oximetry 98 100 99 Oxygen Delivery Fraction of Inspired Oxygen 11/23/24 17:43 11/23/24 17:45 11/23/24 18:00 Temperature 92 F L 92.3 F L 92.4 F L Pulse Rate 94 93 Respiratory Rate 32 H 33 H Blood Pressure Pulse Oximetry 100 99 Oxygen Delivery Fraction of Inspired Oxygen 11/23/24 18:01 11/23/24 18:13 11/23/24 18:15 Temperature 92.4 F L 92.6 F L 92.5 F L Pulse Rate 90 66 Respiratory Rate 33 H 31 H Blood Pressure 133/57 L Pulse Oximetry 100 Oxygen Delivery Fraction of Inspired Oxygen 11/23/24 18:31 11/23/24 18:43 11/23/24 19:01 Temperature 92.6 F L 92.9 F L 92.8 F L Pulse Rate 87 64 Respiratory Rate 31 H 30 H Blood Pressure 114/47 L 99/30 L Pulse Oximetry Oxygen Delivery Fraction of Inspired Oxygen Exam Narrative: General: Acutely ill-appearing female in the semi-Ambrocio position in bed. Weight: 89 kg. BMI: 29.0. HEENT: Wearing corrective lenses. PERRL, EOMI. Sclera anicteric. Dry mucous membranes. Neck: Supple. No JVD. Respiratory: Tachypneic, occasionally giving one-word answers. She does not appear in overt distress. Respirations are shallow with decreased lung sounds. Cardiovascular: Regular rate and rhythm with S1-S2. Gastrointestinal: Abdomen is soft, nontender, and nondistended with positive bowel sounds. Skin: Cool, dry, and pale. Decreased capillary refill. Extremities: No cyanosis or clubbing. Moderate lower extremity edema. Neurological: Alert. Cranial nerves 2-12 are grossly intact. Speech is clear. No facial asymmetry. Generalized weakness without gross focal findings. Psychiatric: Somnolent and cooperative. H&P: Results Labs Labs: Short CBC 11/23/24 Range/Units 11:36 WBC 8.4 (4.5-10.0) K/mm3 Hgb 10.0 L (12.0-15.0) g/dL Hct 33.8 L (37.0-47.0) % Plt Count 307 (150-375) k/mm3 [facility] 11/23/24 11/23/24 11:36 19:23 Sodium 137 139 Potassium 5.4 H 5.5 H Chloride 104 105 Carbon Dioxide < 5 L < 5 L BUN 72 H D 69 H Creatinine 6.67 H 6.76 H Glucose 44 L* 105 Calcium 8.9 8.9 Cardiac Enzymes 11/23/24 Range/Units 11:36 Total Creatine Kinase 74 (30-135) U/L Troponin I 0.017 (0.000-0.034) ng/mL Liver Function 11/23/24 Range/Units 11:36 Total Bilirubin 0.5 (0.2-1.3) mg/dL AST 46 H (14-36) U/L ALT 28 (6-35) U/L Alkaline Phosphatase 95 (38-126) U/L Albumin 3.7 (3.5-5.1) g/dL Imaging Chest X-Ray 11/23/24 13:41 IMPRESSION: 1. No acute cardiopulmonary disease. Head CT 11/23/24 15:11 IMPRESSION: 1. No acute intracranial findings. 2. Left maxillary sinusitis. Chest/Abdomen/Pelvis CT 11/23/24 15:51 IMPRESSION: CHEST: 1. No acute cardiopulmonary pathology. 2. Nodule in the right apical area medially measuring 1.1 cm. 3 months follow- up CT is advised. ABDOMEN/PELVIS: 1. Soft tissue density with central hypodensity is seen in the anterior abdominal wall in the pelvis with postoperative changes suggestive of a hematoma. Clinical correlation and follow-up advised. 2. No evidence of appendicitis, diverticulitis or intestinal obstruction. Chest X-Ray 11/23/24 19:05 IMPRESSION: No acute cardiopulmonary pathology. PICC line with the tip overlying superior vena cava. Pulmonary Perfusion Imaging 11/23/24 21:34 IMPRESSION: Normal nuclear perfusion scan. No evidence for pulmonary emboli. ABG ABG results: 11/23/24 19:44 Puncture Site Right radial ABG pH 6.829 L* ABG pCO2 11.0 L* ABG pO2 150.0 H ABG PO2/FiO2 Ratio > 0.00 ABG HCO3 1.8 L ABG O2 Saturation 96.7 ABG O2 Content 12.4 L ABG Base Excess -30.3 A-a Gradient < 0.0 Oxyhemoglobin 97.5 Total Hemoglobin 8.8 L O2 Delivery Device Room air O2 Liters/Min Not Reportable FiO2 21 Assessment and Plan Assessment and plan (1) Acute kidney injury: Code(s): N17.9 - Acute kidney failure, unspecified Status: Acute (2) Metabolic acidosis: Code(s): E87.20 - Acidosis, unspecified Status: Acute (3) Hyperkalemia: Code(s): E87.5 - Hyperkalemia Status: Acute (4) Gastrointestinal stromal tumor of stomach: Onset Date: 06/2014 Code(s): C49.A2 - Gastrointestinal stromal tumor of stomach Status: Acute Plan The patient presented to the emergency department with generalized weakness, nausea, and vomiting for at least a week, much worse over the past 2 days, as detailed in HPI. Labs, imaging, EKG, and all reports were personally reviewed. Initial workup showed an acute kidney injury, hypoglycemia, hyperkalemia, and profound metabolic acidosis. Numbers have not improved despite IV fluid boluses and treatment for hyperkalemia. Her blood pressures are drifting down and she is increasingly tachypneic with shallow respirations. I had a lengthy discussion with the patient's children regarding her findings and critical condition. They agree that her quality of life has not been good as of late and they do not believe that she would want any heroic measures, including dialysis. They have opted for comfort measures for their loved one which is appropriate. Hospitalist MIPS Advance Care Plan I have confirmed that the patient's Advanced Care Plan is present, code status is documented, or surrogate decision maker is listed in patient medical record.: Yes Medication Reconciliation I have utilized all available resources to obtain, update and review the patients current medications (includes all prescriptions, OTC, herbals, cannabis, and nutritional supplements).: Yes
[2024-11-23 20:08] LABS: Alveolar/Arterial O2 Gradient < 0.0 mmHg; Base Excess ABG -30.3 mEq/l (+/-2.0); Fractional Inspired Oxygen 21 %; HCO3 ABG 1.8 mEq/l (22.0-26.0); Oxygen Content ABG 12.4 %vol (16.0-22.0); Oxygen Saturation ABG 96.7 % (95.0-100.0); Oxyhemoglobin 97.5 % THb (90.0-100.0); PO2 FiO2 Ratio Arterial Blood > 0.00 %; Total Hemoglobin 8.8 g/dL (12.0-18.0)
[2024-11-23 20:09] LABS: Device ROOM AIR; Modified Allen's Test Pass; Site Drawn RIGHT RADIAL; pH ABG 6.829 (7.350-7.450)
[2024-11-23] MEDS: INSULIN HUMAN REGULAR (*BKC) 100 UNITS/ML IV PUSH (21:11)
[2024-11-23] MEDS: DEXTROSE 50% 25 GM/50 ML SYRINGE IV PUSH (21:12)
[2024-11-23] MEDS: SODIUM BICARBONATE 8.4% 150 MEQ in WATER, STERILE FOR INJECTION 950 ML 250 MEQ IV CONT (21:20)
[2024-11-23] MEDS: VANCOMYCIN 2,000 MG/NS 500 ML 2,000 MG/500 ML BAG 250 MG IVPB (21:25)
--- NOTE | 2024-11-23 21:50 | PC.NURSE ---
This patient, Della Lemus, was admitted to Intensive Care Unit-2. Patient/family oriented to hospital policies and general routines including ID bracelet, bed and alarms, visiting hours, pain management, procedures, bathroom and other care routines, personal items, smoking policy, room service/diet, and visiting hours. Information on how to activate the Rapid Response Team has been discussed. Patient/Family are encouraged to report perceived risks to care and to ask questions if they do not understand what they are told or what they should do.
[2024-11-24] VITALS: BP 98/28; PULSE 78; RESP 28; TEMP 35.1; O2SAT 98
[2024-11-24 00:04] LABS: MRSA (PCR) NOT DETECTED (NOT DETECTE)
[2024-11-24] MEDS: CENTRAL LINE FLUSH 10 ML IV PUSH (05:54)
[2024-11-24] MEDS: LORazepam INJ (*CRX) 2 MG/ML VIAL IV PUSH ×3 (05:56→11:25)
[2024-11-24 08:00] VITALS: BP 70/34; PULSE 101; RESP 24; TEMP 34.7; O2SAT 99
[2024-11-24] MEDS: ONDANSETRON INJ 4 MG/2 ML VIAL IV PUSH (09:40)
[2024-11-24] MEDS: HYDROmorphone HCL INJ (*CRX) 2 MG/ML VIAL 0.5 MG IV PUSH ×2 (09:57→14:21)
--- NOTE | 2024-11-24 11:58 | PC.NURSE ---
This patient, Della Lemus, was transferred to [facility] on 11/24/24 at 1145. Personal belongings sent with patient. Report given to Rachel MCKEON. Appropriate documentation sent with patient.
[2024-11-24 12:43] VITALS: BP 63/24; PULSE 99; RESP 20; TEMP 35.3; O2SAT 94
[2024-11-24 13:50] VITALS: RESP 15
--- NOTE | 2024-11-24 14:18 | P.PNIM_ITS ---
Progress Note: A&P Assessment and Plan (1) Acute kidney injury: Code(s): N17.9 - Acute kidney failure, unspecified Status: Acute (2) Metabolic acidosis: Code(s): E87.20 - Acidosis, unspecified Status: Acute (3) Hyperkalemia: Code(s): E87.5 - Hyperkalemia Status: Acute (4) Gastrointestinal stromal tumor of stomach: Onset Date: 06/2014 Code(s): C49.A2 - Gastrointestinal stromal tumor of stomach Status: Acute Plan This is an 88-year-old female with history of stroke, hypertension, hyperlipidemia, gastrointestinal stromal tumor status post Whipple, and type 2 diabetes mellitus who presented to the emergency department via EMS from her assisted living facility with complaints of weakness, nausea, and vomiting. The patient lives in assisted living and she rarely leaves the home, spending a majority of her time in her recliner. She has not been feeling well for about a week with generalized malaise. More recently she has not been going down for breakfast and her oral intake has been poor. She has felt much worse the last 2 days and has complained of a headache, generalized weakness, nausea, vomiting, and loose stools. She is also feeling short of breath and has noticed a decrease in urine output. She has been taking her medications as prescribed. There were no reports of sick contacts. She has not been running a fever and denies cough, chest pain, and abdominal pain. In the ED: Vital signs on arrival include a temperature of 98.0°, blood pressure 83/40, pulse 114, respiratory rate 14, SpO2 98% on room air. Labs were significant for WBC count of 8.4, hemoglobin 10.0, MCV 110.5, D-dimer 5.70, sodium 135, potassium 5.4, carbon dioxide less than 5, BUN 72, creatinine 6.67, glucose 44, lactic acid 14.1, magnesium 1.5. Brain CT showed no acute findings but did note left maxillary sinusitis which appears chronic. CT of the chest, abdomen, and pelvis showed a nodule in the right apical area and soft tissue den sity in the anterior abdominal wall in the pelvis with postoperative changes suggestive of hematoma. She was given a dose of cefepime, received a 3 L normal saline bolus, and was started on a sodium bicarbonate drip. Temperature dropped and she was placed under a Quyen Hugger. PICC line was placed due to poor vascular access but she has not yet required vasopressors. ED physician spoke with the patient's family members about possible dialysis which they declined as the patient would not want heroic measures. She is being admitted to the ICU in this setting for medical treatment. She was treated for hyperkalemia and repeat lactate level was 15.6. ABG showed a pH of 6.829, pCO2 11.0, and a bicarb of 1.8. She has not had any urine output and blood pressures have continued to fall. Continue goals of care discussion led to institution of comfort care. Comfort measures medications were reviewed and updated. Post admission her blood culture positive for Gram-negative bacilli representing sepsis and septic shock most likely source UTI which has been obtained due to low urine output. Septic shock NAHUN Severe lactic acidosis Severe metabolic acidosis Hyperkalemia Bacteremia g negative bacilli Subjective Date/time seen: 11/24/24 14:18 Interval history: Patient transition to comfort care earlier. Family at bedside. Patient hypotensive. Unresponsive. Review of Systems Review of Systems: ROS unobtainable: Yes unobtainable due to mental status Exam Narrative: General: Ill-appearing female not in acute distress HEENT: Wearing corrective lenses. PERRL, EOMI. Sclera anicteric. Dry mucous membranes. Neck: Supple. No JVD. Respiratory: No respiratory distress shallow breathing Cardiovascular: Regular rate and rhythm with S1-S2. Gastrointestinal: Abdomen is soft, nontender, and nondistended with positive bowel sounds. Skin: Cool, dry, and pale. Decreased capillary refill. Extremities: No cyanosis or clubbing. Moderate lower extremity edema. Neurological: Patient somnolent Psychiatric: Somnolent and calm Objective Data Vital Signs Vital Signs: Vital Signs - 24 hr 11/23/24 14:28 11/23/24 14:11/23/24 14:42 Temperature Pulse Rate 74 80 68 Respiratory Rate 25 H 22 H 21 H Blood Pressure 122/42 L 122/42 L Pulse Oximetry 100 100 Oxygen Delivery 11/23/24 15:25 11/23/24 15:31 11/23/24 16:00 Temperature Pulse Rate 71 79 68 Respiratory Rate 24 H 23 H 25 H Blood Pressure 125/40 L 119/39 L Pulse Oximetry 100 98 100 Oxygen Delivery 11/23/24 16:31 11/23/24 16:37 11/23/24 17:13 Temperature 91 F L Pulse Rate 68 74 Respiratory Rate 23 H 24 H Blood Pressure 168/65 H 168/65 H Pulse Oximetry 98 98 Oxygen Delivery 11/23/24 17:14 11/23/24 17:15 11/23/24 17:30 Temperature 91 F L 91.6 F L 92.2 F L Pulse Rate 66 96 Respiratory Rate 26 H 27 H Blood Pressure Pulse Oximetry 98 100 Oxygen Delivery 11/23/24 17:31 11/23/24 17:43 11/23/24 17:45 Temperature 92.1 F L 92 F L 92.3 F L Pulse Rate 95 94 Respiratory Rate 27 H 32 H Blood Pressure 146/54 H Pulse Oximetry 99 100 Oxygen Delivery 11/23/24 18:00 11/23/24 18:01 11/23/24 18:13 Temperature 92.4 F L 92.4 F L 92.6 F L Pulse Rate 93 90 Respiratory Rate 33 H 33 H Blood Pressure 133/57 L Pulse Oximetry 99 100 Oxygen Delivery 11/23/24 18:15 11/23/24 18:31 11/23/24 18:43 Temperature 92.5 F L 92.6 F L 92.9 F L Pulse Rate 66 87 Respiratory Rate 31 H 31 H Blood Pressure 114/47 L Pulse Oximetry Oxygen Delivery 11/23/24 19:01 11/23/24 19:30 11/23/24 20:01 Temperature 92.8 F L 93.0 F L 93.3 F L Pulse Rate 64 86 88 Respiratory Rate 30 H 29 H 30 H Blood Pressure 99/30 L 104/41 L 106/53 L Pulse Oximetry 96 Oxygen Delivery 11/23/24 20:54 11/23/24 21:01 11/23/24 21:31 Temperature 93.8 F L 93.7 F L 93.7 F L Pulse Rate 90 66 73 Respiratory Rate 23 H 28 H 29 H Blood Pressure 95/39 L 85/35 L 90/40 L Pulse Oximetry 96 100 98 Oxygen Delivery 11/23/24 22:00 11/23/24 22:00 11/23/24 22:10 Temperature 93.8 F L 93.8 F L Pulse Rate 75 Respiratory Rate 29 H Blood Pressure 118/90 Pulse Oximetry 100 Oxygen Delivery Room Air 11/23/24 22:30 11/23/24 23:00 11/23/24 23:00 Temperature 93.9 F L 94.1 F L 94.1 F L Pulse Rate 76 Respiratory Rate 29 H Blood Pressure 97/29 L Pulse Oximetry 98 Oxygen Delivery 11/23/24 23:30 11/24/24 00:00 11/24/24 00:00 Temperature 94.7 F L Pulse Rate 78 Respiratory Rate Blood Pressure Pulse Oximetry Oxygen Delivery Room Air 11/24/24 00:00 11/24/24 08:00 11/24/24 08:00 Temperature 95.1 F L 94.5 F L Pulse Rate 78 101 H Respiratory Rate 28 H 24 H Blood Pressure 98/28 L 70/34 L Pulse Oximetry 98 99 Oxygen Delivery Room Air 11/24/24 12:43 11/24/24 13:50 Temperature 95.6 F L Pulse Rate 99 Respiratory Rate 20 15 Blood Pressure 63/24 L Pulse Oximetry 94 Oxygen Delivery Intake/Output Intake/Output: Intake & Output 11/21/24 11/22/24 11/23/24 11/24/24 23:59 23:59 23:59 23:59 Intake Total 3708.3 30 Balance 3708.3 30 Meds/Results Medications: Active Medications Generic Name Dose Route Start Last Admin Trade Name Freq PRN Reason Stop Dose Admin Acetaminophen 650 mg 11/23/24 19:53 Acetaminophen 650 Mg Suppository RECTAL Q6H PRN Mild Pain (1-3) or Fever Atropine Sulfate 1 - 2 drop 11/24/24 00:18 Atropine Sulfate 1% Ophth Soln 5 Ml Bottle SUBLINGUAL Q4H PRN Secretions Hydromorphone HCl 0.5 mg 11/24/24 09:52 11/24/24 09:57 Hydromorphone Hcl Inj (*Crx) 2 Mg/Ml Vial IV PUSH 0.5 mg Q1H PRN Administration Pain Rated 7-10 Lorazepam 2 mg 11/24/24 00:18 11/24/24 11:25 Lorazepam Inj (*Crx) 2 Mg/Ml Vial IV PUSH 2 mg Q2H PRN Administration Anxiety/Comfort Ondansetron HCl 4 mg 11/23/24 19:53 11/24/24 09:40 Ondansetron Inj 4 Mg/2 Ml Vial IV PUSH 4 mg Q4H PRN Administration Nausea Sodium Chloride 10 ml 11/24/24 06:00 11/24/24 05:54 Central Line Flush IV PUSH 10 ml Q8HR JESSICA Administration Sodium Chloride 20 ml 11/23/24 22:57 Central Line Flush IV PUSH PRN PRN after blood draws Radiology Results: ITS Impressions Head CT 11/23/24 15:11 IMPRESSION: No acute intracranial findings. Left maxillary sinusitis. Chest/Abdomen/Pelvis CT 11/23/24 15:51 IMPRESSION: CHEST: 1. No acute cardiopulmonary pathology. 2. Nodule in the right apical area medially measuring 1.1 cm. 3 months follow- up CT is advised. ABDOMEN/PELVIS: 1. Soft tissue density with central hypodensity is seen in the anterior abdominal wall in the pelvis with postoperative changes suggestive of a hematoma. Clinical correlation and follow-up advised. 2. No evidence of appendicitis, diverticulitis or intestinal obstruction. Chest X-Ray 11/23/24 19:05 IMPRESSION: No acute cardiopulmonary pathology. PICC line with the tip overlying superior vena cava. Pulmonary Perfusion Imaging 11/23/24 21:34 IMPRESSION: Normal nuclear perfusion scan. No evidence for pulmonary emboli. Labs Labs: Laboratory Results - last 24 hr 11/23/24 11/23/24 11/23/24 13:55 19:23 19:44 PT 17.6 H INR 1.4 APTT 27.2 D-Dimer 5.70 H Puncture Site Right radial ABG pH 6.829 L* ABG pCO2 11.0 L* ABG pO2 150.0 H ABG PO2/FiO2 Ratio > 0.00 ABG HCO3 1.8 L ABG O2 Saturation 96.7 ABG O2 Content 12.4 L ABG Base Excess -30.3 A-a Gradient < 0.0 Oxyhemoglobin 97.5 Total Hemoglobin 8.8 L O2 Delivery Device Room air O2 Liters/Min Not Reportable FiO2 21 Sodium 139 Potassium 5.5 H Chloride 105 Carbon Dioxide < 5 L Anion Gap BUN 69 H Creatinine 6.76 H Estim Creat Clear Calc 8 Estimated GFR 6 L Glucose 105 Lactic Acid 14.1 H* 15.6 H* Calcium 8.9 Phosphorus 6.4 H Urine Color Urine Appearance Urine pH Ur Specific [place] Urine Protein Urine Glucose (UA) Urine Ketones Ur Blood (Man) Urine Nitrate Urine Bilirubin Urine Urobilinogen Add Ur Microanalysis Leukocyte Esterase Rfl Urine RBC Urine WBC Urine WBC Clumps Ur Squamous Epith Cells Ur Transition Epith Cell Ur Renal Epithelial Cell Vikram Biurate Crystals Calcium Carbonate Cryst Calcium Phosphate Cryst Calcium Oxalate Crystal Leucine Crystals Cystine Crystals Uric Acid Crystals Triple Phos Crystals Sulfonamide Crystals Cholesterol Crystals Talc Crystals Tyrosine Crystals Hippuric Acid Crystals Bilirubin Crystals Other Crystals Amorphous Sediment Other Sediment Urine Bacteria Urine Casts Cellular Casts Epithelial Casts Fatty Casts Hyaline Casts Granular Casts Waxy Casts Broad Casts RBC Casts WBC Casts Urine Starch Urine Mucus Urine Trichomonas Urine Yeast (Budding) Ur Oval Fat Bodies Nasal MRSA (PCR) Sperm Presence 11/23/24 11/23/24 22:42 22:44 PT INR APTT D-Dimer Puncture Site ABG pH ABG pCO2 ABG pO2 ABG PO2/FiO2 Ratio ABG HCO3 ABG O2 Saturation ABG O2 Content ABG Base Excess A-a Gradient Oxyhemoglobin Total Hemoglobin O2 Delivery Device O2 Liters/Min FiO2 Sodium Potassium Chloride Carbon Dioxide Anion Gap BUN Creatinine Estim Creat Clear Calc Estimated GFR Glucose Lactic Acid Calcium Phosphorus Urine Color Cancelled Urine Appearance Cancelled Urine pH Cancelled Ur Specific [place] Cancelled Urine Protein Cancelled Urine Glucose (UA) Cancelled Urine Ketones Cancelled Ur Blood (Man) Cancelled Urine Nitrate Cancelled Urine Bilirubin Cancelled Urine Urobilinogen Cancelled Add Ur Microanalysis Cancelled Leukocyte Esterase Rfl Cancelled Urine RBC Cancelled Urine WBC Cancelled Urine WBC Clumps Cancelled Ur Squamous Epith Cells Cancelled Ur Transition Epith Cell Cancelled Ur Renal Epithelial Cell Cancelled Vikram Biurate Crystals Cancelled Calcium Carbonate Cryst Cancelled Calcium Phosphate Cryst Cancelled Calcium Oxalate Crystal Cancelled Leucine Crystals Cancelled Cystine Crystals Cancelled Uric Acid Crystals Cancelled Triple Phos Crystals Cancelled Sulfonamide Crystals Cancelled Cholesterol Crystals Cancelled Talc Crystals Cancelled Tyrosine Crystals Cancelled Hippuric Acid Crystals Cancelled Bilirubin Crystals Cancelled Other Crystals Cancelled Amorphous Sediment Cancelled Other Sediment Cancelled Urine Bacteria Cancelled Urine Casts Cancelled Cellular Casts Cancelled Epithelial Casts Cancelled Fatty Casts Cancelled Hyaline Casts Cancelled Granular Casts Cancelled Waxy Casts Cancelled Broad Casts Cancelled RBC Casts Cancelled WBC Casts Cancelled Urine Starch Cancelled Urine Mucus Cancelled Urine Trichomonas Cancelled Urine Yeast (Budding) Cancelled Ur Oval Fat Bodies Cancelled Nasal MRSA (PCR) Not detected Sperm Presence Cancelled
[2024-11-24 15:10] VITALS: RESP 9
--- NOTE | 2024-11-24 16:19 | P.DN_ITS ---
Discharge Summary Probable Cause of Probable Cause of : septick shock bacteremia acute renal failure Summary Hospital Course: This is an 88-year-old female with history of stroke, hypertension, hyperlipidemia, gastrointestinal stromal tumor status post Whipple, and type 2 diabetes mellitus who presented to the emergency department via EMS from her assisted living facility with complaints of weakness, nausea, and vomiting. The patient lives in assisted living and she rarely leaves the home, spending a majority of her time in her recliner. She has not been feeling well for about a week with generalized malaise. More recently she has not been going down for breakfast and her oral intake has been poor. She has felt much worse the last 2 days and has complained of a headache, generalized weakness, nausea, vomiting, and loose stools. She is also feeling short of breath and has noticed a decrease in urine output. She has been taking her medications as prescribed. There were no reports of sick contacts. She has not been running a fever and denies cough, chest pain, and abdominal pain. In the ED: Vital signs on arrival include a temperature of 98.0°, blood pressure 83/40, pulse 114, respiratory rate 14, SpO2 98% on room air. Labs were significant for WBC count of 8.4, hemoglobin 10.0, MCV 110.5, D-dimer 5.70, sodium 135, potassium 5.4, carbon dioxide less than 5, BUN 72, creatinine 6.67, glucose 44, lactic acid 14.1, magnesium 1.5. Brain CT showed no acute findings but did note left maxillary sinusitis which appears chronic. CT of the chest, abdomen, and pelvis showed a nodule in the right apical area and soft tissue density in the anterior abdominal wall in the pelvis with postoperative changes suggestive of hematoma. She was given a dose of cefepime, received a 3 L normal saline bolus, and was started on a sodium bicarbonate drip. Temperature dropped and she was placed under a Quyen Hugger. PICC line was placed due to poor vascular access but she has not yet required vasopressors. ED physician spoke with the patient's family members about possible dialysis which they declined as the patient would not want heroic measures. She is being admitted to the ICU in this setting for medical treatment. She was treated for hyperkalemia and repeat lactate level was 15.6. ABG showed a pH of 6.829, pCO2 11.0, and a bicarb of 1.8. She has not had any urine output and blood pressures have continued to fall. Continue goals of care discussion led to institution of comfort care. Comfort measures medications were reviewed and updated. Post admission her blood culture positive for Gram-negative bacilli representing sepsis and septic shock most likely source UTI which has been obtained due to low urine output. patient with septi shock, miranda, severe lactic acidosis, severe metabolic acidos is. patient subsequently during the hospital stay. necessary arrangements made.
== END 2024-11-24 20:30 | disposition expired | DRG 871 ==
LOC: ANHED 20:06 → ANHICU 20:39 → ANH3MED 11-24 19:51 → ANHICU 11-26 16:31
PROVIDERS: Emergency Medicine; Physician Assistant; Admitting Provider Internal Medicine; Emergency Provider Student in an Organized Health Care Education/Training Program; PCP Family Medicine Adolescent Medicine; Visit Provider Internal Medicine
DX: A41.9 Sepsis, unspecified organism (principal); R65.21 Severe sepsis with septic shock; N39.0 Urinary tract infection, site not specified; C49.A2 Gastrointestinal stromal tumor of stomach; E87.21 Acute metabolic acidosis; I69.354 Hemiplegia and hemiparesis following cerebral infarction affecting left non-dominant side; N17.9 Acute kidney failure, unspecified; E11.649 Type 2 diabetes mellitus with hypoglycemia without coma; I10 Essential (primary) hypertension; E87.5 Hyperkalemia; E78.5 Hyperlipidemia, unspecified; D64.9 Anemia, unspecified; J32.0 Chronic maxillary sinusitis; Z66 Do not resuscitate; M81.0 Age-related osteoporosis without current pathological fracture; Z85.41 Personal history of malignant neoplasm of cervix uteri; Z85.05 Personal history of malignant neoplasm of liver
CPT/HCPCS: 36415; 36569; 36600; 70450; 71045; 71250; 74176; 78582; 80048; 80053; 82550; 82805; 82948; 83605; 83735; 83880; 84100; 84443; 84484; 85018; 85025; 85380; 85610; 85730; 86140; 87040; 87186; 87637; 87641; 93005; 94640; 96361; 96365; 96366; 96367; 96375; 99285; A9270; A9540; A9558; C1751; J0612; J0692; J1171; J1815; J2060; J2405; J3370; J7030